=== PATIENT | male | born 1970 | race Caucasian/White ===

== ENCOUNTER 2019-06-08 18:27 | Inpatient (IN) | payer BC ==
[~2019-06-08] VITALS: Ht 188 cm; Wt 294.8 kg
[~2019-06-08 18:27] MED LIST: VANCOMYCIN 1.5 GM in IV NORMAL SALINE 500ML BAG 500 ML IV SCH
--- NOTE | 2019-06-08 18:41 | PHYS DOC ---
Adult General Chief Complaint Chief Complaint: LOWER EXT PAIN HPI HPI Patient is a 49 year old male who was brought here by EMS for evaluation of left lower extremity pain and swelling for the last 2 days. He also complaints of fever and chill. Patient said his son was recently diagnosed with influenza A. He denies any abdominal pain, no chest pain, no trouble breathing. He denies any injury. he has history of chronic lymphedema. All other ROS is negative unless otherwise noted in HPI Review of Systems Review of Systems See above Current Medications Current Medications Current Medications Medications (Trade) Dose Ordered Sig/Dina Start Time Stop Time Status Last Admin Dose Admin Acetaminophen (Tylenol) 1,000 mg 1X ONCE 06/08/19 20:00 06/08/19 20:01 DC 06/08/19 19:56 1,000 MG Cefazolin Sodium/ Dextrose 50 ml @ 100 mls/hr Q8HRS 06/09/19 06:00 UNV Ibuprofen (Motrin) 800 mg 1X ONCE 06/08/19 20:00 06/08/19 20:01 DC 06/08/19 19:56 800 MG Morphine Sulfate (Morphine Sulfate) 4 mg PRN Q6HRS PRN 06/08/19 20:15 06/09/19 20:14 Ondansetron HCl (Zofran) 4 mg PRN Q8HRS PRN 06/08/19 20:15 06/09/19 20:14 Sodium Chloride 1,000 ml @ 1,000 mls/hr 1X ONCE 06/08/19 20:00 06/08/19 20:59 06/08/19 20:02 1,000 MLS/HR Vancomycin HCl (Vanco Per Pharmacy) 1 each PRN DAILY PRN 06/08/19 20:30 UNV Vancomycin HCl 2 gm/Sodium Chloride 500 ml @ 250 mls/hr 1X ONCE 06/08/19 20:00 06/08/19 21:59 Allergies Allergies Allergies Coded Allergies Type Severity Reaction Last Updated Verified No Known Drug Allergies 06/08/19 No Physical Exam Physical Exam See above Constitutional: Well developed, well nourished, no acute distress, non-toxic appearance. MORBIDLY OBESE. HENT: Normocephalic, atraumatic, bilateral external ears normal, oropharynx moist, no oral exudates, nose normal. [] Eyes: PERRLA, EOMI, conjunctiva normal, no discharge. [] Neck: Normal range of motion, no tenderness, supple, no stridor. [] Cardiovascular:Heart rate regular rhythm, no murmur [] Lungs & Thorax: Bilateral breath sounds clear to auscultation [] Abdomen: Bowel sounds normal, soft, no tenderness, no masses, no pulsatile masses. [] Skin: Warm, dry, LEFT LEG IS ERYTHEMA, WARM TO TOUCH, NO OPEN WOUND. Back: No tenderness, no CVA tenderness. [] Extremities: LEFT LEG EDEMA, SWELLING, ERYTHEMA, TENDER TO PALPATION. Neurologic: Alert and oriented X 3, normal motor function, normal sensory function, no focal deficits noted. [] Psychologic: Affect normal, judgement normal, mood normal. [] Current Patient Data Vital Signs Vital Signs Date Time Temp Pulse Resp B/P (MAP) Pulse Ox O2 Delivery O2 Flow Rate FiO2 06/08/19 18:40 103.2 121 16 139/72 (94) 91 Room Air 103.2 Lab Values Laboratory Tests Test 06/08/19 18:41 06/08/19 18:50 Influenza Type A Antigen Negative (NEGATIVE) Influenza Type B Antigen Negative (NEGATIVE) White Blood Count 15.3 x10^3/uL (4.0-11.0) H Red Blood Count 5.10 x10^6/uL (4.30-5.70) Hemoglobin 13.8 g/dL (13.0-17.5) Hematocrit 42.4 % (39.0-53.0) Mean Corpuscular Volume 83 fL (79-100) Mean Corpuscular Hemoglobin 27 pg (25-35) Mean Corpuscular Hemoglobin Concent 33 g/dL (31-37) Red Cell Distribution Width 14.9 % (11.5-14.5) H Platelet Count 188 x10^3/uL (140-400) Neutrophils (%) (Auto) 87 % (31-73) H Lymphocytes (%) (Auto) 5 % (24-48) L Monocytes (%) (Auto) 8 % (0-9) Eosinophils (%) (Auto) 0 % (0-3) Basophils (%) (Auto) 0 % (0-3) Neutrophils # (Auto) 13.2 x10^3/uL (1.8-7.7) H Lymphocytes # (Auto) 0.8 x10^3/uL (1.0-4.8) L Monocytes # (Auto) 1.2 x10^3/uL (0.0-1.1) H Eosinophils # (Auto) 0.0 x10^3/uL (0.0-0.7) Basophils # (Auto) 0.0 x10^3/uL (0.0-0.2) Platelet Estimate Pending Prothrombin Time 13.8 SEC (11.7-14.0) Prothrombin Time INR 1.1 (0.8-1.1) Activated Partial Thromboplast Time 29 SEC (24-38) Sodium Level 129 mmol/L (136-145) L Potassium Level 3.7 mmol/L (3.5-5.1) Chloride Level 94 mmol/L (98-107) L Carbon Dioxide Level 27 mmol/L (21-32) Anion Gap 8 (6-14) Blood Urea Nitrogen 14 mg/dL (8-26) Creatinine 1.2 mg/dL (0.7-1.3) Estimated GFR (Cockcroft-Gault) 64.1 BUN/Creatinine Ratio 12 (6-20) Glucose Level 133 mg/dL (70-99) H Lactic Acid Level 1.6 mmol/L (0.4-2.0) Calcium Level 9.1 mg/dL (8.5-10.1) Total Bilirubin 0.9 mg/dL (0.2-1.0) Aspartate Amino Transferase (AST) 47 U/L (15-37) H Alanine Aminotransferase (ALT) 40 U/L (16-63) Alkaline Phosphatase 73 U/L (46-116) Total Protein 8.1 g/dL (6.4-8.2) Albumin 2.7 g/dL (3.4-5.0) L Albumin/Globulin Ratio 0.5 (1.0-1.7) L Laboratory Tests 06/08/19 18:50 Laboratory Tests 06/08/19 18:50 EKG EKG [] Radiology/Procedures Radiology/Procedures [][facility] [address] [place], [place] [id number] IMAGING REPORT Signed PATIENT: DANIELLE BURGOSCCOUNT: [id number] : 1970 LOCATION: ER AGE: 49 SEX: M EXAM STATUS: REG ER ORD. PHYSICIAN: KYLE ZIMMERMAN DO REASON: left leg swelling and pain for 2 days PROCEDURE: VENOUS LOWER EXTREMITY LEFT STUDY: VENOUS LOWER EXTREMITY LEFT INDICATION: Left leg swelling and pain. TECHNIQUE: Color-flow and pulsed wave duplex ultrasound with compression of venous structures of the left lower extremity. COMPARISON: None. FINDINGS: Duplex ultrasound with compression of the deep venous structures of the left lower extremity from the common femoral vein through the popliteal vein is negative for DVT. The calf veins are not well evaluated due to patient body habitus. IMPRESSION: No deep venous thrombosis from the common femoral vein through the popliteal vein. The calf veins are not assessed due to patient body habitus. Electronically signed by: CHANNING NICK MD (06/08/2019 8:18 PM) [facility] DICTATED and SIGNED BY: CHANNING NICK MD DATE: 06/08/192017 [facility] [address] [place], [place] [id number] IMAGING REPORT Signed PATIENT: DANIELLE BURGOSCCOUNT: [id number] : 1970 LOCATION: ER AGE: 49 SEX: M EXAM STATUS: REG ER ORD. PHYSICIAN: KYLE ZIMMERMAN DO REASON: fever, cough PROCEDURE: PORTABLE CHEST 1V Study: PORTABLE CHEST 1V Indication: Fever and cough. Comparison: 03/12/2006 Findings: Degraded study secondary to patient body habitus. The cardiomediastinal silhouette is prominent in size but similar to the prior. Prominent hilar structures most pronounced at the lower aspect of the right hilum. Generalized increased lung markings. Haziness of the lower lung zones likely in part related to overlying soft tissues. No large pleural effusion is well seen. No large pneumothorax. Impression: 1. Significant study degradation due to patient body habitus. 2. The cardiomediastinal silhouette is prominent in size as are the hilar structures. Increased lung markings as well and a component of pulmonary edema may be present. No superimposed focal opacity to suggest an organizing pneumonia. Electronically signed by: CHANNING NICK MD (06/08/2019 7:29 PM) [facility] DICTATED and SIGNED BY: CHANNING NICK MD DATE: 06/08/191928 Course & Med Decision Making Course & Med Decision Making Pertinent Labs and Imaging studies reviewed. (See chart for details) Patient was FOUND To have cellulitis of left lower extremity, so did not show DVT, patient WILL be admitted to hospital for IV antibiotic. Dragon Disclaimer Dragon Disclaimer This electronic medical record was generated, in whole or in part, using a voice recognition dictation system. Departure Departure Impression: Primary Impression: Left leg cellulitis Disposition: ADMITTED INPATIENT Admitting Physician: STEPHANIE (DR. VADIM ANGELO) Condition: STABLE Referrals: DENISE OLVERA (PCP) KYLE ZIMMERMAN DO Jun 08, 2019 18:41
[2019-06-08] MEDS ORDERED: VANCOMYCIN 1GM IVPB FOR OMNI 250 ML IV ONE (18:45)
[2019-06-08 19:05] LABS: BASO % 0 % (0-3); EOS % 0 % (0-3); HEMATOCRIT 42.4 % (39.0-53.0); HEMOGLOBIN 13.8 g/dL (13.0-17.5); LYMPH # 0.8 x10^3/uL (1.0-4.8); LYMPH % 5 % (24-48); MEAN CORPUSCULAR HEMOGLOBIN 27 pg (25-35); MEAN CORPUSCULAR HGB CONC 33 g/dL (31-37); MEAN CORPUSCULAR VOLUME 83 fL (79-100); MONO # 1.2 x10^3/uL (0.0-1.1); MONO % 8 % (0-9); NEUT # 13.2 x10^3/uL (1.8-7.7); NEUT % 87 % (31-73); PLATELET COUNT 188 x10^3/uL (140-400); RED CELL DISTRIBUTION WIDTH 14.9 % (11.5-14.5); WHITE BLOOD COUNT 15.3 x10^3/uL (4.0-11.0)
[2019-06-08 19:07] LABS: INFLUENZA A PATIENT NEGATIVE (NEGATIVE); INFLUENZA B PATIENT NEGATIVE (NEGATIVE)
[2019-06-08 19:15] LABS: CALCIUM 9.1 mg/dL (8.5-10.1); CREATININE 1.2 mg/dL (0.7-1.3); GFR 64.1; POTASSIUM 3.7 mmol/L (3.5-5.1)
[2019-06-08 19:20] LABS: PROTHROMBIN TIME PATIENT 13.8 SEC (11.7-14.0)
[2019-06-08 19:21] LABS: ALBUMIN 2.7 g/dL (3.4-5.0); ALBUMIN/GLOBULIN RATIO 0.5 (1.0-1.7); TOTAL BILIRUBIN 0.9 mg/dL (0.2-1.0); TOTAL PROTEIN 8.1 g/dL (6.4-8.2)
--- NOTE | 2019-06-08 19:32 | RAD ---
Study: PORTABLE CHEST 1V Indication: Fever and cough. Comparison: 03/12/2006 Findings: Degraded study secondary to patient body habitus. The cardiomediastinal silhouette is prominent in size but similar to the prior. Prominent hilar structures most pronounced at the lower aspect of the right hilum. Generalized increased lung markings. Haziness of the lower lung zones likely in part related to overlying soft tissues. No large pleural effusion is well seen. No large pneumothorax. Impression: 1. Significant study degradation due to patient body habitus. 2. The cardiomediastinal silhouette is prominent in size as are the hilar structures. Increased lung markings as well and a component of pulmonary edema may be present. No superimposed focal opacity to suggest an organizing pneumonia. Electronically signed by: CHANNING NICK MD (06/08/2019 7:29 PM) [facility]
[2019-06-08] MEDS ORDERED: IV NORMAL SALINE 1000ML BAG 1,000 ML IV ONE (20:00)
[2019-06-08] MEDS ORDERED: ACETAMINOPHEN 500 MG TABLET PO ONE (20:00)
[2019-06-08] MEDS ORDERED: IBUPROFEN 400 MG TABLET. PO ONE (20:00)
[2019-06-08] MEDS ORDERED: VANCOMYCIN 2 GM in IV NORMAL SALINE 500ML BAG 500 ML IV ONE (20:00)
[2019-06-08] MEDS ORDERED: ONDANSETRON PF 4 MG/2 ML VIAL. IV PRN (20:15)
[2019-06-08] MEDS ORDERED: MORPHINE SULFATE 4 MG/ML VIAL. IV PRN (20:15)
--- NOTE | 2019-06-08 20:21 | RAD ---
STUDY: VENOUS LOWER EXTREMITY LEFT INDICATION: Left leg swelling and pain. TECHNIQUE: Color-flow and pulsed wave duplex ultrasound with compression of venous structures of the left lower extremity. COMPARISON: None. FINDINGS: Duplex ultrasound with compression of the deep venous structures of the left lower extremity from the common femoral vein through the popliteal vein is negative for DVT. The calf veins are not well evaluated due to patient body habitus. IMPRESSION: No deep venous thrombosis from the common femoral vein through the popliteal vein. The calf veins are not assessed due to patient body habitus. Electronically signed by: CHANNING NICK MD (06/08/2019 8:18 PM) [facility]
[2019-06-08 20:42] LABS: % ATYL 2 % (0-0); % LYMPHS 8 % (24-48)
[2019-06-08 20:43] LABS: % BANDS 39 % (0-9); % MONOS 5 % (0-10); % SEGS 46 % (35-66)
[2019-06-08 20:44] LABS: TOXIC VACUOLATION PRESENT
[2019-06-08] MEDS: VANCOMYCIN PER PHARMACY MC PRN (21:00)
[2019-06-08 21:03] LABS: PLT ESTIMATE ADEQUATE (ADEQUATE)
--- NOTE | 2019-06-08 21:06 | NUR ---
Pharmacy Vancomycin Dosing Note S:Consulted to monitor and dose vancomycin started 06/08/19. O:VADIM BURGOS is a 49 year old M with Cellulitis Height: 6 feet, 2 inches Weight: 294.8 kg [place] Body Weight: 82.20 Adjusted Body Weight: 167.32 Dosing Weight: Actual Other Antibiotics: Cefazolin 2g q8h LABS: Last BUN: 14 Last Creatinine: 1.2 Creatinine Clearance: >100 mL/min Last WBC: 15.3 Last Procalcitonin: Tmax (past 24 hours): 103.2 Microbiology: - I/O: - Drug Levels: Last level: on at Last dose given 06/08/19 at 2043 Vancomycin Dosing: Loading Dose: 2000 mg x1 Dosing Weight: Actual Target Trough: 10-20 A: Based on: weight and renal function P: 1. Begin Vancomycin 1500 mg IV q8h 2. Follow up Trough level on 06/09/19 at 2030 3. Pharmacy will continue to monitor, follow and adjust therapy as needed. Kyung Trammell RPH, 06/08/19 0047
[2019-06-08 23:00] VITALS: BP 112/84
[2019-06-09] MEDS ORDERED: water pill (00:28)
[2019-06-09] MEDS ORDERED: TURM538C PO (00:28)
[2019-06-09 03:00] VITALS: BP 144/88
[2019-06-09] MEDS: VANCOMYCIN 1.5 GM in IV NORMAL SALINE 500ML BAG 500 ML IV SCH ×3 (05:52→21:33)
[2019-06-09 07:00] VITALS: BP 147/82
--- NOTE | 2019-06-09 07:31 | EKG ---
[facility] [address] [place] [address] Test Date: 2019-06-08 Test Time: 19:47:52 Pat Name: VADIM BURGOS Department: Room: Gender: Organ Recovery Coordinator: : 1970 Requested By: KYLE ZIMMERMAN Order Number: [id number] Reading MD: Measurements Intervals [place] Rate: 121 P: 0 MI: 128 QRS: 11 QRSD: 102 T: 17 QT: 356 QTc: 508 Interpretive Statements SINUS TACHYCARDIA OTHERWISE NORMAL ECG No previous ECG available for comparison
[2019-06-09 07:43] LABS: BILIRUBIN,URINE SMALL (NEG); CLARITY,URINE CLEAR; COLOR,URINE AMBER; NITRITE,URINE NEGATIVE (NEG); PH,URINE 5.5; PROTEIN,URINE 100 mg/dL (NEG-TRACE)
[2019-06-09 08:08] LABS: BACTERIA,URINE 0 /HPF (0-FEW); RBC,URINE 0 /HPF (0-2); SQUAMOUS EPITHELIAL CELL,UR FEW /LPF
[2019-06-09 08:09] LABS: AMORPHOUS SEDIMENT,UR PRESENT /HPF; GRANULAR CASTS,URINE OCCASIONAL /HPF; HYALINE CASTS, URINE FEW /HPF
[2019-06-09 08:49] LABS: CALCIUM 8.8 mg/dL (8.5-10.1); CREATININE 1.1 mg/dL (0.7-1.3); GFR 70.9; POTASSIUM 3.4 mmol/L (3.5-5.1)
[2019-06-09 11:00] VITALS: BP 142/72
--- NOTE | 2019-06-09 11:21 | PDOC1 ---
History and Physical Date of Admission Date of Admission DATE: 06/09/19 TIME: :19 Identification/Chief Complaint Chief Complaint 49 year old male who was brought here by EMS for evaluation of left lower extremity pain and swelling for the last 2 days. He also complaints of fever and chill. Patient said his son was recently diagnosed with influenza A. He denies any abdominal pain, no chest pain, no trouble breathing. He denies any injury. he has history of chronic lymphedema. NOTES PAIN, SWELLING Past Medical History Cardiovascular: Hyperlipidemia Family History Family History: High Cholestrol, Hypertension Social History Smoke: No ALCOHOL: none Drugs: None Current Problem List Problem List Problems Medical Problems: (1) Left leg cellulitis Status: Acute Current Medications Current Medications Current Medications Ibuprofen (Motrin) 800 mg 1X ONCE PO Last administered on 06/08/19 19:56; Start 06/08/19 at 20:00; Stop 06/08/19 at 20:01; Status DC Acetaminophen (Tylenol) 1,000 mg 1X ONCE PO Last administered on 06/08/19 19:56; Start 06/08/19 at 20:00; Stop 06/08/19 at 20:01; Status DC Vancomycin HCl 250 ml @ 250 mls/hr 1X ONCE IV ; Start 06/08/19 at 18:45; Stop 06/08/19 at 19:44; Status UNV Cefazolin Sodium/ Dextrose 50 ml @ 100 mls/hr 1X ONCE IV Last administered on 06/08/19at 20:02; Start 06/08/19 at 20:00; Stop 06/08/19 at 20:29; Status DC Sodium Chloride 1,000 ml @ 1,000 mls/hr 1X ONCE IV Last administered on 06/08/19at 20:02; Start 06/08/19 at 20:00; Stop 06/08/19 at 20:59; Status DC Vancomycin HCl 2 gm/Sodium Chloride 500 ml @ 250 mls/hr 1X ONCE IV Last administered on 06/08/19at 20:43; Start 06/08/19 at 20:00; Stop 06/08/19 at 21:59; Status DC Ondansetron HCl (Zofran) 4 mg PRN Q8HRS PRN IV NAUSEA/VOMITING Last adminis tered on 06/09/19at 11:15; Start 06/08/19 at 20:15; Stop 06/09/19 at 20:14 Morphine Sulfate (Morphine Sulfate) 4 mg PRN Q6HRS PRN IV PAIN Last administered on 06/09/19at 11:16; Start 06/08/19 at 20:15; Stop 06/09/19 at 20:14 Cefazolin Sodium/ Dextrose 50 ml @ 100 mls/hr Q8HRS IV Last administered on 06/09/19at 05:12; Start 06/09/19 at 06:00 Vancomycin HCl (Vanco Per Pharmacy) 1 each PRN DAILY PRN MC SEE COMMENTS Last administered on 06/08/19at 21:00; Start 06/08/19 at 20:30 Vancomycin HCl 1.5 gm/Sodium Chloride 500 ml @ 250 mls/hr Q8H IV Last administered on 06/08/19at 05:00; Start 06/08/19 at 05:00; Stop 06/08/19 at 2 1:21; Status DC Vancomycin HCl (Vancomycin Trough Level) 1 each 1X ONCE MC ; Start 06/09/19 at 20:30; Stop 06/09/19 at 20:31 Vancomycin HCl 1.5 gm/Sodium Chloride 500 ml @ 250 mls/hr Q8H IV Last administered on 06/09/19at 05:52; Start 06/09/19 at 05:00 Active Scripts Active Reported [water pill] Turmeric (Turmeric Root Extract) 538 Mg Capsule 538 Mg PO DAILY Allergies Allergies: Coded Allergies: No Known Drug Allergies (Unverified , 06/08/19) ROS General: YES: Fatigue; No: Chills, Night Sweats, Malaise, Appetite, Other PSYCHOLOGICAL ROS: No: Anxiety, Behavioral Disorder, Concentration difficultie, Decreased libido, Depression, Disorientation, Hallucinations, Hostility, Irritablity, Memory difficulties, Mood Swings, Obsessive thoughts, Physical abuse, Sexual abuse, Sleep disturbances, Suicidal ideation, Other Eyes: No Blurry vision, No Decreased vision, No Double vision, No Dry eyes, No Excessive tearing, No Eye Pain, No Itchy Eyes, No Loss of vision, No Photophobia, No Scotomata, No Uses contacts, No Uses glasses, No Other ALLERGY AND IMMUNOLOGY: No: Hives, Insect Bite Sensitivity, Itchy/Watery Eyes, Nasal Congestion, Post Nasal Drip, Seasonal Allergies, Other Hematological and Lymphatic: No: Bleeding Problems, Blood Clots, Blood Transfusions, Brusing, Night Sweats, Pallor, Swollen Lymph Nodes, Other Respiratory: YES: SOB with excertion Gastrointestinal: No Nausea, No Vomiting, No Abdominal Pain, No Diarrhea, No Constipation, No Melena, No Hematochezia, No Other Musculoskeletal: Yes Gait Disturbance, Yes Joint Stiffness Skin: Yes Dry Skin, Yes Skin Lesion Changes Physical Exam Physical Exam Physical Exam Physical Exam See above Constitutional: Well developed, well nourished, no acute distress, non-toxic appearance. MORBIDLY OBESE. HENT: Normocephalic, atraumatic, bilateral external ears normal, oropharynx moist, no oral exudates, nose normal. [] Eyes: PERRLA, EOMI, conjunctiva normal, no discharge. [] Neck: Normal range of motion, no tenderness, supple, no stridor. [] Cardiovascular:Heart rate regular rhythm, no murmur [] Lungs & Thorax: Bilateral breath sounds clear to auscultation [] Abdomen: Bowel sounds normal, soft, no tenderness, no masses, no pulsatile masses. [] Skin: Warm, dry, LEFT LEG IS ERYTHEMA, WARM TO TOUCH, NO OPEN WOUND. Back: No tenderness, no CVA tenderness. [] Extremities: LEFT LEG EDEMA, SWELLING, ERYTHEMA, TENDER TO PALPATION. Neurologic: Alert and oriented X 3, normal motor function, normal sensory function, no focal deficits noted. [] Psychologic: Affect normal, judgement normal, mood normal. [] General: Alert, Oriented X3, Cooperative, No acute distress HEENT: EOMI Breasts: Not examined Abdomen: Soft Rectal Exam: not examined PELVIC: Examination not indicated Extremities: No cyanosis Neuro: Normal speech, Cranial nerves 3-12 NL Psych/Mental Status: Mental status NL, Mood NL Vitals Vitals Vital Signs Date Time Temp Pulse Resp B/P (MAP) Pulse Ox O2 Delivery O2 Flow Rate FiO2 06/09/19 11:16 18 Room Air 06/09/19 07:00 97.5 115 147/82 (103) 92 97.5 Labs Labs Laboratory Tests Test 06/08/19 18:41 06/08/19 18:50 06/09/19 06:30 06/09/19 07:45 Influenza Type A Antigen Negative (NEGATIVE) Influenza Type B Antigen Negative (NEGATIVE) White Blood Count 15.3 x10^3/uL (4.0-11.0) Red Blood Count 5.10 x10^6/uL (4.30-5.70) Hemoglobin 13.8 g/dL (13.0-17.5) Hematocrit 42.4 % (39.0-53.0) Mean Corpuscular Volume 83 fL (79-100) Mean Corpuscular Hemoglobin 27 pg (25-35) Mean Corpuscular Hemoglobin Concent 33 g/dL (31-37) Red Cell Distribution Width 14.9 % (11.5-14.5) Platelet Count 188 x10^3/uL (140-400) Neutrophils (%) (Auto) 87 % (31-73) Lymphocytes (%) (Auto) 5 % (24-48) Monocytes (%) (Auto) 8 % (0-9) Eosinophils (%) (Auto) 0 % (0-3) Basophils (%) (Auto) 0 % (0-3) Neutrophils # (Auto) 13.2 x10^3/uL (1.8-7.7) Lymphocytes # (Auto) 0.8 x10^3/uL (1.0-4.8) Monocytes # (Auto) 1.2 x10^3/uL (0.0-1.1) Eosinophils # (Auto) 0.0 x10^3/uL (0.0-0.7) Basophils # (Auto) 0.0 x10^3/uL (0.0-0.2) Segmented Neutrophils % 46 % (35-66) Band Neutrophils % 39 % (0-9) Lymphocytes % 8 % (24-48) Atypical Lymphocytes % (Manual) 2 % (0-0) Monocytes % 5 % (0-10) Toxic Vacuolation Present Platelet Estimate Adequate (ADEQUATE) Prothrombin Time 13.8 SEC (11.7-14.0) Prothromb Time International Ratio 1.1 (0.8-1.1) Activated Partial Thromboplast Time 29 SEC (24-38) Sodium Level 129 mmol/L (136-145) 133 mmol/L (136-145) Potassium Level 3.7 mmol/L (3.5-5.1) 3.4 mmol/L (3.5-5.1) Chloride Level 94 mmol/L (98-107) 96 mmol/L (98-107) Carbon Dioxide Level 27 mmol/L (21-32) 27 mmol/L (21-32) Anion Gap 8 (6-14) 10 (6-14) Blood Urea Nitrogen 14 mg/dL (8-26) 13 mg/dL (8-26) Creatinine 1.2 mg/dL (0.7-1.3) 1.1 mg/dL (0.7-1.3) Estimated GFR (Cockcroft-Gault) 64.1 70.9 BUN/Creatinine Ratio 12 (6-20) Glucose Level 133 mg/dL (70-99) 131 mg/dL (70-99) Lactic Acid Level 1.6 mmol/L (0.4-2.0) Calcium Level 9.1 mg/dL (8.5-10.1) 8.8 mg/dL (8.5-10.1) Total Bilirubin 0.9 mg/dL (0.2-1.0) Aspartate Amino Transf (AST/SGOT) 47 U/L (15-37) Alanine Aminotransferase (ALT/SGPT) 40 U/L (16-63) Alkaline Phosphatase 73 U/L (46-116) Total Protein 8.1 g/dL (6.4-8.2) Albumin 2.7 g/dL (3.4-5.0) Albumin/Globulin Ratio 0.5 (1.0-1.7) Urine Collection Type Unknown Urine Color Blanca Urine Clarity Clear Urine pH 5.5 Urine Specific [place] 1.025 Urine Protein 100 mg/dL (NEG-TRACE) Urine Glucose (UA) Negative mg/dL (NEG) Urine Ketones (Stick) 15 mg/dL (NEG) Urine Blood Moderate (NEG) Urine Nitrite Negative (NEG) Urine Bilirubin Small (NEG) Urine Urobilinogen Dipstick 1.0 mg/dL (0.2 mg/dL) Urine Leukocyte Esterase Negative (NEG) Urine RBC 0 /HPF (0-2) Urine WBC 1-4 /HPF (0-4) Urine Squamous Epithelial Cells Few /LPF Urine Amorphous Sediment Present /HPF Urine Bacteria 0 /HPF (0-FEW) Urine Hyaline Casts Few /HPF Urine Granular Casts Occasional /HPF Urine Mucus Slight /LPF Laboratory Tests Test 06/08/19 18:41 06/08/19 18:50 06/09/19 06:30 06/09/19 07:45 Influenza Type A Antigen Negative (NEGATIVE) Influenza Type B Antigen Negative (NEGATIVE) White Blood Count 15.3 x10^3/uL (4.0-11.0) Red Blood Count 5.10 x10^6/uL (4.30-5.70) Hemoglobin 13.8 g/dL (13.0-17.5) Hematocrit 42.4 % (39.0-53.0) Mean Corpuscular Volume 83 fL (79-100) Mean Corpuscular Hemoglobin 27 pg (25-35) Mean Corpuscular Hemoglobin Concent 33 g/dL (31-37) Red Cell Distribution Width 14.9 % (11.5-14.5) Platelet Count 188 x10^3/uL (140-400) Neutrophils (%) (Auto) 87 % (31-73) Lymphocytes (%) (Auto) 5 % (24-48) Monocytes (%) (Auto) 8 % (0-9) Eosinophils (%) (Auto) 0 % (0-3) Basophils (%) (Auto) 0 % (0-3) Neutrophils # (Auto) 13.2 x10^3/uL (1.8-7.7) Lymphocytes # (Auto) 0.8 x10^3/uL (1.0-4.8) Monocytes # (Auto) 1.2 x10^3/uL (0.0-1.1) Eosinophils # (Auto) 0.0 x10^3/uL (0.0-0.7) Basophils # (Auto) 0.0 x10^3/uL (0.0-0.2) Segmented Neutrophils % 46 % (35-66) Band Neutrophils % 39 % (0-9) Lymphocytes % 8 % (24-48) Atypical Lymphocytes % (Manual) 2 % (0-0) Monocytes % 5 % (0-10) Toxic Vacuolation Present Platelet Estimate Adequate (ADEQUATE) Prothrombin Time 13.8 SEC (11.7-14.0) Prothromb Time International Ratio 1.1 (0.8-1.1) Activated Partial Thromboplast Time 29 SEC (24-38) Sodium Level 129 mmol/L (136-145) 133 mmol/L (136-145) Potassium Level 3.7 mmol/L (3.5-5.1) 3.4 mmol/L (3.5-5.1) Chloride Level 94 mmol/L (98-107) 96 mmol/L (98-107) Carbon Dioxide Level 27 mmol/L (21-32) 27 mmol/L (21-32) Anion Gap 8 (6-14) 10 (6-14) Blood Urea Nitrogen 14 mg/dL (8-26) 13 mg/dL (8-26) Creatinine 1.2 mg/dL (0.7-1.3) 1.1 mg/dL (0.7-1.3) Estimated GFR (Cockcroft-Gault) 64.1 70.9 BUN/Creatinine Ratio 12 (6-20) Glucose Level 133 mg/dL (70-99) 131 mg/dL (70-99) Lactic Acid Level 1.6 mmol/L (0.4-2.0) Calcium Level 9.1 mg/dL (8.5-10.1) 8.8 mg/dL (8.5-10.1) Total Bilirubin 0.9 mg/dL (0.2-1.0) Aspartate Amino Transf (AST/SGOT) 47 U/L (15-37) Alanine Aminotransferase (ALT/SGPT) 40 U/L (16-63) Alkaline Phosphatase 73 U/L (46-116) Total Protein 8.1 g/dL (6.4-8.2) Albumin 2.7 g/dL (3.4-5.0) Albumin/Globulin Ratio 0.5 (1.0-1.7) Urine Collection Type Unknown Urine Color [place]anca Urine Clarity Clear Urine pH 5.5 Urine Specific [place] 1.025 Urine Protein 100 mg/dL (NEG-TRACE) Urine Glucose (UA) Negative mg/dL (NEG) Urine Ketones (Stick) 15 mg/dL (NEG) Urine Blood Moderate (NEG) Urine Nitrite Negative (NEG) Urine Bilirubin Small (NEG) Urine Urobilinogen Dipstick 1.0 mg/dL (0.2 mg/dL) Urine Leukocyte Esterase Negative (NEG) Urine RBC 0 /HPF (0-2) Urine WBC 1-4 /HPF (0-4) Urine Squamous Epithelial Cells Few /LPF Urine Amorphous Sediment Present /HPF Urine Bacteria 0 /HPF (0-FEW) Urine Hyaline Casts Few /HPF Urine Granular Casts Occasional /HPF Urine Mucus Slight /LPF Images Images Indication: Fever and cough. Comparison: 03/12/2006 Findings: Degraded study secondary to patient body habitus. The cardiomediastinal silhouette is prominent in size but similar to the prior. Prominent hilar structures most pronounced at the lower aspect of the right hilum. Generalized increased lung markings. Haziness of the lower lung zones likely in part related to overlying soft tissues. No large pleural effusion is well seen. No large pneumothorax. Impression: 1. Significant study degradation due to patient body habitus. 2. The cardiomediastinal silhouette is prominent in size as are the hilar structures. Increased lung markings as well and a component of pulmonary edema may be present. No superimposed focal opacity to suggest an organizing pneumonia. Electronically signed by: CHANNING NICK MD (06/08/2019 7:29 PM) [facility] [place] DICTATED and SIGNED BY: CHANNING NICK MD DATE: 06/08/191928 STUDY: VENOUS LOWER EXTREMITY LEFT INDICATION: Left leg swelling and pain. TECHNIQUE: Color-flow and pulsed wave duplex ultrasound with compression of venous structures of the left lower extremity. COMPARISON: None. FINDINGS: Duplex ultrasound with compression of the deep venous structures of the left lower extremity from the common femoral vein through the popliteal vein is negative for DVT. The calf veins are not well evaluated due to patient body habitus. IMPRESSION: No deep venous thrombosis from the common femoral vein through the popliteal vein. The calf veins are not assessed due to patient body habitus. Electronically signed by: CHANNING NICK MD (06/08/2019 8:18 PM) [facility] [place] DICTATED and SIGNED BY: CHANNING NICK MD DATE: 06/08/192017 VTE Prophylaxis Ordered VTE Prophylaxis Devices: Contraindicated VTE Pharmacological Prophylaxi: Yes Assessment/Plan Assessment/Plan Impression: Left leg cellulitis PULM EDEMA EXTREME MORBID OBESITY ADMITTED IV ANTIBIOTICS, VANC ID CONSULT CARDS CONSULT ECHO DVT PROPHYLAXIS, HEPARIN MARIA ELENA MATUTE MD Jun 09, 2019 11:21
[2019-06-09 15:00] VITALS: BP 88/58
[2019-06-09] MEDS ORDERED: POTASSIUM CHLORIDE 20 MEQ TABLET.ER. PO ONE (15:15)
--- NOTE | 2019-06-09 15:40 | PDOC2 ---
CARDIAC CONSULT DATE OF CONSULT Date of Consult DATE: 06/09/19 TIME: 15:11 REASON FOR CONSULT Reason for Consult: CHF, pulmonary edema REFERRING PHYSICIAN Referring Physician: Fullbright SOURCE Source: Chart review, Patient HISTORY OF PRESENT ILLNESS HISTORY OF PRESENT ILLNESS This is a pleasant 49 yo male admitted for complains of left leg pain. Reports that he does have chronic leg swelling and appears to be chronic venous dermatitis. In the last 3 days he has noted that his left calf has been getting more red and swollen. Yesterday it was so painful just trying to put his shoes on that he finally decided to come to ED. He does see a PCP for his chronic leg edema and has been taking diuretic. Upon admission he was noted with fever of 103. Also he has been noted with watery stools since Wednesday but none since yesterday. Denies any SOA or productive cough but he did get exposed to his son who has the flu. He is negative so far. Denies any abdominal pain or bloating. He snores at night per his son and typically tired midday but denies any morning HAs. Denies any chest pain and no orthopnea or PND. He could not tell specifically how much has he gained lately since there is no scale that would fit his size. Denies any past CAD, arrhythmias, VTE. Denies any DM and does not take any medications except for the diuretic. PAST MEDICAL HISTORY Cardiovascular: Other (chronic leg edema) Pulmonary: No pertinent hx CENTRAL NERVOUS SYSTEM: Other (No pertinent history) GI: Other (diarrhea) Heme/Onc: No pertinent hx Hepatobiliary: No pertinent hx Psych: No pertinent hx Musculoskeletal: Osteoarthritis, Other (morbid obesity) Rheumatologic: No pertinent hx Infectious disease: No pertinent hx ENT: No pertinent hx Renal/: No pertinent hx Endocrine: No pertinent hx Dermatology: Other (venous dermatitis) PAST SURGICAL HISTORY Past Surgical History: No pertinent history FAMILY HISTORY Family History: Heart Disease (father) SOCIAL HISTORY Smoke: No ALCOHOL: none Drugs: None Lives: with Family (son) CURRENT MEDICATIONS CURRENT MEDICATIONS Current Medications Medications (Trade) Dose Ordered Sig/Dina Route PRN Reason Start Time Stop Time Status Last Admin Dose Admin Ibuprofen (Motrin) 800 mg 1X ONCE PO 06/08/19 20:00 06/08/19 20:01 DC 06/08/19 19:56 Acetaminophen (Tylenol) 1,000 mg 1X ONCE PO 06/08/19 20:00 06/08/19 20:01 DC 06/08/19 19:56 Cefazolin Sodium/ Dextrose 50 ml @ 100 mls/hr 1X ONCE IV 06/08/19 20:00 06/08/19 20:29 DC 06/08/19 20:02 Sodium Chloride 1,000 ml @ 1,000 mls/hr 1X ONCE IV 06/08/19 20:00 06/08/19 20:59 DC 06/08/19 20:02 Vancomycin HCl 2 gm/Sodium Chloride 500 ml @ 250 mls/hr 1X ONCE IV 06/08/19 20:00 06/08/19 21:59 DC 06/08/19 20:43 Ondansetron HCl (Zofran) 4 mg PRN Q8HRS PRN IV NAUSEA/VOMITING 06/08/19 20:15 06/09/19 20:14 06/09/19 11:15 Morphine Sulfate (Morphine Sulfate) 4 mg PRN Q6HRS PRN IV PAIN 06/08/19 20:15 06/09/19 20:14 06/09/19 11:16 Cefazolin Sodium/ Dextrose 50 ml @ 100 mls/hr Q8HRS IV 06/09/19 06:00 06/09/19 14:18 Vancomycin HCl (Vanco Per Pharmacy) 1 each PRN DAILY PRN MC SEE COMMENTS 06/08/19 20:30 06/08/19 21:00 Vancomycin HCl 1.5 gm/Sodium Chloride 500 ml @ 250 mls/hr Q8H IV 06/09/19 05:00 06/09/19 12:15 ALLERGIES ALLERGIES: Coded Allergies: No Known Drug Allergies (Unverified , 06/08/19) ROS Review of System 14 point ROS evaluated with pertinent positives noted per HPI PHYSICAL EXAM General: Alert, Oriented X3, Cooperative, No acute distress HEENT: Atraumatic, Mucous membr. moist/pink Lungs: Other (diminished, unable to appreciate due to his body habitus) Heart: Regular rate, Other (distant heart sounds) Extremities: No cyanosis, Other (chronic lymphedema with LLE cellulitis) Skin: Other (LE venous dermatitis; blisters to left calf dark erythema from below knee to ankle with pitting edema) Neuro: Normal speech, Sensation intact Psych/Mental Status: Mental status NL, Mood NL MUSCULOSKELETAL: Osteoarthritic changes both hands VITALS/I&O VITALS/I&O: Vital Signs Date Time Temp Pulse Resp B/P (MAP) Pulse Ox O2 Delivery O2 Flow Rate FiO2 06/09/19 11:46 18 Room Air 06/09/19 11:00 100.8 117 142/72 (95) 90 100.8 I & O 06/08/19 06/08/19 06/09/19 15:00 23:00 07:00 Intake Total 1050 ml 700 ml Balance 1050 ml 700 ml LABS Lab: Laboratory Tests Test 06/08/19 18:41 06/08/19 18:50 06/09/19 06:30 06/09/19 07:45 Influenza Type A Antigen Negative (NEGATIVE) Influenza Type B Antigen Negative (NEGATIVE) White Blood Count 15.3 x10^3/uL (4.0-11.0) H Red Blood Count 5.10 x10^6/uL (4.30-5.70) Hemoglobin 13.8 g/dL (13.0-17.5) Hematocrit 42.4 % (39.0-53.0) Mean Corpuscular Volume 83 fL (79-100) Mean Corpuscular Hemoglobin 27 pg (25-35) Mean Corpuscular Hemoglobin Concent 33 g/dL (31-37) Red Cell Distribution Width 14.9 % (11.5-14.5) H Platelet Count 188 x10^3/uL (140-400) Neutrophils (%) (Auto) 87 % (31-73) H Lymphocytes (%) (Auto) 5 % (24-48) L Monocytes (%) (Auto) 8 % (0-9) Eosinophils (%) (Auto) 0 % (0-3) Basophils (%) (Auto) 0 % (0-3) Neutrophils # (Auto) 13.2 x10^3/uL (1.8-7.7) H Lymphocytes # (Auto) 0.8 x10^3/uL (1.0-4.8) L Monocytes # (Auto) 1.2 x10^3/uL (0.0-1.1) H Eosinophils # (Auto) 0.0 x10^3/uL (0.0-0.7) Basophils # (Auto) 0.0 x10^3/uL (0.0-0.2) Segmented Neutrophils % 46 % (35-66) Band Neutrophils % 39 % (0-9) H Lymphocytes % 8 % (24-48) L Atypical Lymphocytes % (Manual) 2 % (0-0) H Monocytes % 5 % (0-10) Toxic Vacuolation Present Platelet Estimate Adequate (ADEQUATE) Prothrombin Time 13.8 SEC (11.7-14.0) Prothrombin Time INR 1.1 (0.8-1.1) Activated Partial Thromboplast Time 29 SEC (24-38) Sodium Level 129 mmol/L (136-145) L 133 mmol/L (136-145) L Potassium Level 3.7 mmol/L (3.5-5.1) 3.4 mmol/L (3.5-5.1) L Chloride Level 94 mmol/L (98-107) L 96 mmol/L (98-107) L Carbon Dioxide Level 27 mmol/L (21-32) 27 mmol/L (21-32) Anion Gap 8 (6-14) 10 (6-14) Blood Urea Nitrogen 14 mg/dL (8-26) 13 mg/dL (8-26) Creatinine 1.2 mg/dL (0.7-1.3) 1.1 mg/dL (0.7-1.3) Estimated GFR (Cockcroft-Gault) 64.1 70.9 BUN/Creatinine Ratio 12 (6-20) Glucose Level 133 mg/dL (70-99) H 131 mg/dL (70-99) H Lactic Acid Level 1.6 mmol/L (0.4-2.0) Calcium Level 9.1 mg/dL (8.5-10.1) 8.8 mg/dL (8.5-10.1) Total Bilirubin 0.9 mg/dL (0.2-1.0) Aspartate Amino Transferase (AST) 47 U/L (15-37) H Alanine Aminotransferase (ALT) 40 U/L (16-63) Alkaline Phosphatase 73 U/L (46-116) Total Protein 8.1 g/dL (6.4-8.2) Albumin 2.7 g/dL (3.4-5.0) L Albumin/Globulin Ratio 0.5 (1.0-1.7) L Urine Collection Type Unknown Urine Color Blanca Urine Clarity Clear Urine pH 5.5 Urine Specific Haworth 1.025 Urine Protein 100 mg/dL (NEG-TRACE) Urine Glucose (UA) Negative mg/dL (NEG) Urine Ketones (Stick) 15 mg/dL (NEG) Urine Blood Moderate (NEG) Urine Nitrite Negative (NEG) Urine Bilirubin Small (NEG) Urine Urobilinogen Dipstick 1.0 mg/dL (0.2 mg/dL) Urine Leukocyte Esterase Negative (NEG) Urine RBC 0 /HPF (0-2) Urine WBC 1-4 /HPF (0-4) Urine Squamous Epithelial Cells Few /LPF Urine Amorphous Sediment Present /HPF Urine Bacteria 0 /HPF (0-FEW) Urine Hyaline Casts Few /HPF Urine Granular Casts Occasional /HPF Urine Mucus Slight /LPF OC-Msh-F-Type Natriuretic Peptide 253 pg/mL (0-124) H Thyroid Stimulating Hormone (TSH) 1.033 uIU/mL (0.358-3.74) Laboratory Tests 06/08/19 18:50 Laboratory Tests 06/08/19 18:50 06/09/19 07:45 ASSESSMENT/PLAN ASSESSMENT/PLAN 1. Fever/LLE cellulitis 2. Recent diarrhea: likely contributing to hyponatremia, Na better 3. Chronic venous insufficiency/venous dermatitis 4. Chronic diastolic CHF: clinically compensated 6. Severe morbid obesity: BMI 83. Primary contributor to above issues Due for first bariatric appt on 07/06/2019 6. Reactive sinus tach: per EKG 7. Dysmetabolic syndrome vs new DM2 8. Suspect JASON 9. Recent flu exposure: test negative so far Recommendations 1. Limited imaging options due to his large size. TTE would be likely be limited due to his body habitus and pending 2. Lasix primarily for his leg edema. K replacement. BMP in AM. 3. Nocturnal desat study 4. Lipids and A1C. BC pending. Antibiotic per [employer] MANAGER Jun 09, 2019 15:40
[2019-06-09] MEDS ORDERED: PERFLUTREN PROTEIN-A MICROSPHR 0.22 MG/ML 3 ML VIAL. IV ONE ×2 (15:45→15:47)
[2019-06-09 15:49] LABS: CHOLESTEROL/HDL RATIO 13.3; MAGNESIUM 2.3 mg/dL (1.8-2.4)
[2019-06-09] MEDS ORDERED: POTASSIUM BICARB 20 MEQ EFFERVESCENT TABLET. PO ONE (16:00)
[2019-06-09] MEDS: VANCOMYCIN PER PHARMACY MC PRN ×2 (16:09→21:02)
--- NOTE | 2019-06-09 16:49 | CARD ---
MR#: [id number] Date of Study: 06/09/2019 Ordering Physician: MARIA ELENA MATUTE, Referring Physician: MARIA ELENA MATUTE, Tech: Rosalia Alvarado APPROVED REPORT EXAM: Two-dimensional and M-mode echocardiogram with Doppler and color Doppler. Other Information Quality : FairHR: 120bpm Technically limited study due to body habitus. INDICATION Congestive Heart Failure Echo Enhancing Agent Indication: Endocardial border delineation Agent/Amount Used: Optison 10mL 2D DIMENSIONS Left Atrium(2D)5.5 (1.6-4.0cm)IVSd1.8 (0.7-1.1cm) Aortic Root(2D)2.9 (2.0-3.7cm)LVDd5.8 (3.9-5.9cm) LVOT Diameter2.2 (1.8-2.4cm)PWd1.4 (0.7-1.1cm) LVDs3.6 (2.5-4.0cm)FS (%) 37.9 % SV113.3 ml Aortic Valve AoV Peak Tony.223.1cm/sAoV VTI36.8cm AO Peak GR.19.9mmHgLVOT VTI 19.83cm AO Mean GR.14mmHg Mitral Valve MV E Wshkexbt735.0cm/sMV E Peak Gr.6mmHg MV DECEL [id number] A Jlhuclhw85.1cm/s MV E Mean Gr.3mmHgE/A Ratio1.3 TDI Lateral E' P. V9.40cm/sMedial E' P. V9.78cm/s E/Lateral E'11.5E/Medial E'11.0 Tricuspid Valve TR P. Vxyeztzb468fh/sRAP QIHCPPVV4lsDe TR Peak Gr.72vcRkDPBO41gjQf Pulmonary Vein S1 Ubvqyifr67.3cm/sS2 Snnoqhsg22.15cm/s D2 Vuaposjb77.1cm/s LEFT VENTRICLE The Left Ventricle is borderline dilated. There is mild to moderate concentric left ventricular hyper trophy. The left ventricular systolic function is normal and the ejection fraction is within normal r elissa. The Ejection Fraction is 55-60%. There is normal LV segmental wall motion. Transmitral Doppler flow pattern is Grade II-pseudonormal filling dynamics. RIGHT VENTRICLE The right ventricle is normal size. There is normal right ventricular wall thickness. The right ventr icular systolic function is normal. ATRIA The left atrium size is normal. The right atrium size is normal. The interatrial septum is intact wit h no evidence for an atrial septal defect or patent foramen ovale as noted on 2-D or Doppler imaging. AORTIC VALVE The aortic valve is thickened but opens well. Doppler and Color Flow revealed no significant aortic r egurgitation. There is no significant aortic valvular stenosis. MITRAL VALVE The mitral valve is normal in structure and function. There is no evidence of mitral valve prolapse. There is no mitral valve stenosis. Doppler and Color-flow revealed trace mitral regurgitation. TRICUSPID VALVE The tricuspid valve is normal in structure and function. Doppler and Color Flow revealed trace tricus pid regurgitation with an estimated PAP of 29 mmHg. There is no tricuspid valve stenosis. PULMONIC VALVE The pulmonic valve is not well visualized. Doppler and Color Flow revealed trace pulmonic valvular re gurgitation. GREAT VESSELS The aortic root is normal in size. The IVC was not visualized. PERICARDIAL EFFUSION There is no evidence of significant pericardial effusion. Critical Notification Critical Value: No <Conclusion> The Left Ventricle is borderline dilated. The left ventricular systolic function is normal and the ejection fraction is within normal range. The Ejection Fraction is 55-60%. There is mild to moderate concentric left ventricular hypertrophy. Doppler and Color Flow revealed no significant aortic regurgitation. There is no significant aortic valvular stenosis. Doppler and Color-flow revealed trace mitral regurgitation. Doppler and Color Flow revealed trace tricuspid regurgitation with an estimated PAP of 29 mmHg. Signed by : Carlo Valencia MD Electronically Approved : 06/09/2019 16:49:22
[2019-06-09 19:00] VITALS: BP 151/84
[2019-06-09 20:57] LABS: VANC TR 11.7 mcg/mL (10.0-20.0)
--- NOTE | 2019-06-09 21:03 | NUR ---
Pharmacy Vancomycin Dosing Note S: Consulted to monitor and dose vancomycin started 06/08/19. O: VADIM BURGOS is a 49 year old M with Cellulitis Other Antibiotics: Cefazolin 2g q8h LABS: Last BUN: 14 Last Creatinine: 1.1 Creatinine Clearance: >100 mL/min Last WBC: 15.3 Last Procalcitonin: Tmax (past 24 hours): 100.8 Microbiology: - I/O: 1750/- Drug Levels: Last Trough level: 11.7 on 06/09/19 at 2020 Last dose given 06/09/19 at 1215 Vancomycin Dosing: Dosing Weight: Actual Target Trough: 10-20 A: Based on: trough P: 1. Continue Vancomycin 1500 mg IV q8h 2. Follow up Trough level to be ordered in 5-7 days if needed 3. Pharmacy will continue to monitor, follow and adjust therapy as needed. Kyung Trammell RPH, 06/09/19 [id number]
[2019-06-09] MEDS: LACTOBACILLUS RHAMNOSUS GG 1 CAPSULE. PO SCH (21:32)
[2019-06-09] MEDS: HEPARIN for SUB-Q USE 5,000 UNIT/ML VIAL. SQ SCH (21:44)
[2019-06-09 23:00] VITALS: BP 117/69
[2019-06-09] MEDS ORDERED: SIMETHICONE 80 MG TAB.CHEW PO PRN (23:45)
--- NOTE | 2019-06-10 02:03 | NUR ---
Recieved in shift report that pt has had an fluid intake of at least 2500mL and an output of about 500mL. Did a post void bladder scan in multiple locations under the panis and recieved 0 mL each time. Will continue to monitor.
[2019-06-10 03:00] VITALS: BP 142/76
[2019-06-10] MEDS: VANCOMYCIN 1.5 GM in IV NORMAL SALINE 500ML BAG 500 ML IV SCH (04:15)
[2019-06-10] MEDS: HEPARIN for SUB-Q USE 5,000 UNIT/ML VIAL. SQ SCH ×3 (06:41→22:06)
[2019-06-10 07:26] LABS: BASO % 0 % (0-3); EOS % 0 % (0-3); HEMATOCRIT 39.2 % (39.0-53.0); HEMOGLOBIN 12.7 g/dL (13.0-17.5); LYMPH # 1.3 x10^3/uL (1.0-4.8); LYMPH % 6 % (24-48); MEAN CORPUSCULAR HEMOGLOBIN 27 pg (25-35); MEAN CORPUSCULAR HGB CONC 32 g/dL (31-37); MEAN CORPUSCULAR VOLUME 85 fL (79-100); MONO # 1.5 x10^3/uL (0.0-1.1); MONO % 7 % (0-9); NEUT # 18.7 x10^3/uL (1.8-7.7); NEUT % 87 % (31-73); PLATELET COUNT 192 x10^3/uL (140-400); RED BLOOD COUNT 4.64 x10^6/uL (4.30-5.70); RED CELL DISTRIBUTION WIDTH 15.3 % (11.5-14.5); WHITE BLOOD COUNT 21.6 x10^3/uL (4.0-11.0)
[2019-06-10 07:39] LABS: ALBUMIN 2.2 g/dL (3.4-5.0); ALBUMIN/GLOBULIN RATIO 0.4 (1.0-1.7); CALCIUM 8.7 mg/dL (8.5-10.1); CREATININE 1.2 mg/dL (0.7-1.3); GFR 64.1; POTASSIUM 3.3 mmol/L (3.5-5.1); TOTAL BILIRUBIN 0.9 mg/dL (0.2-1.0); TOTAL PROTEIN 7.4 g/dL (6.4-8.2)
[2019-06-10 07:59] VITALS: BP 112/63
[2019-06-10] MEDS ORDERED: POTASSIUM CHLORIDE 10 MEQ TABLET.ER. PO SCH (08:00)
[2019-06-10] MEDS ORDERED: POTASSIUM BICARB 20 MEQ EFFERVESCENT TABLET. PO ONE (09:00)
--- NOTE | 2019-06-10 09:57 | PDOC ---
PROGRESS NOTES History of Present Illness History of Present Illness VTE Prophylaxis Ordered VTE Prophylaxis Devices: Contraindicated VTE Pharmacological Prophylaxi: Yes Assessment/Plan Assessment/Plan Impression: Left leg cellulitis PULM EDEMA EXTREME MORBID OBESITY on echo, 06/09 Ejection Fraction is 55-60%. mild to moderate concentric left ventricular hypertrophy. severe protein-caloric malnutrition hypokalemia ADMITTED IV ANTIBIOTICS, VANC d/c ID CONSULT CARDS CONSULT ECHO DVT PROPHYLAXIS, HEPARIN Zosyn, add Zyvox for toxin binding and micafungin replete k 38 min pt exam, chart review, > 50% of time spent with exam, chart review, pt care coordination Vitals Vitals Vital Signs Date Time Temp Pulse Resp B/P (MAP) Pulse Ox O2 Delivery O2 Flow Rate FiO2 06/10/19 07:59 99.6 102 20 112/63 (79) 95 Room Air 99.6 Physical Exam General: Alert, Oriented X3, Cooperative, No acute distress Heart: Regular rate, Other (distant heart sounds) Lungs: Clear Abdomen: Normal bowel sounds, Soft, No tenderness Extremities: No cyanosis, Other (chronic lymphedema with LLE cellulitis) Skin: Other (LE venous dermatitis; blisters to left calf dark erythema from be low knee to ankle with pitting edema) Labs LABS Study: PORTABLE CHEST 1V Indication: Fever and cough. Comparison: 03/12/2006 Findings: Degraded study secondary to patient body habitus. The cardiomediastinal silhouette is prominent in size but similar to the prior. Prominent hilar structures most pronounced at the lower aspect of the right hilum. Generalized increased lung markings. Haziness of the lower lung zones likely in part related to overlying soft tissues. No large pleural effusion is well seen. No large pneumothorax. Impression: 1. Significant study degradation due to patient body habitus. 2. The cardiomediastinal silhouette is prominent in size as are the hilar structures. Increased lung markings as well and a component of pulmonary edema may be present. No superimposed focal opacity to suggest an organizing pneumonia. Electronically signed by: CHANNING NICK MD (06/08/2019 7:29 PM) [facility] STUDY: VENOUS LOWER EXTREMITY LEFT INDICATION: Left leg swelling and pain. TECHNIQUE: Color-flow and pulsed wave duplex ultrasound with compression of venous structures of the left lower extremity. COMPARISON: None. FINDINGS: Duplex ultrasound with compression of the deep venous structures of the left lower extremity from the common femoral vein through the popliteal vein is negative for DVT. The calf veins are not well evaluated due to patient body habitus. IMPRESSION: No deep venous thrombosis from the common femoral vein through the popliteal vein. The calf veins are not assessed due to patient body habitus. Electronically signed by: CHANNING NICK MD (06/08/2019 8:18 PM) [facility] DICTATED and SIGNED BY: CHANNING NICK MD DATE: 06/08/192017 SPEC #: [id number] DEVANG: 06/08/19 STATUS: RES REQ #: [id number] RECD: 06/08/19 [facility] DR: KYLE ZIMMERMAN DO SOURCE: BLOOD ENTR: 06/08/[address] [facility] [address]: DENISE OLVERA [facility]: ORDERED: BCULT Procedure Result BLOOD CULTURE Preliminary NO GROWTH AFTER 1 DAY INDICATION Congestive Heart Failure Echo Enhancing Agent Indication: Endocardial border delineation Agent/Amount Used: Optison 10mL 2D DIMENSIONS Left Atrium(2D) 5.5 (1.6-4.0cm) IVSd 1.8 (0.7-1.1cm) Aortic Root(2D) 2.9 (2.0-3.7cm) LVDd 5.8 (3.9-5.9cm) LVOT Diameter 2.2 (1.8-2.4cm) PWd 1.4 (0.7-1.1cm) LVDs 3.6 (2.5-4.0cm) FS (%) 37.9 % SV 113.3 ml Aortic Valve AoV Peak Tony. 223.1cm/s AoV VTI 36.8cm AO Peak GR. 19.9mmHg LVOT VTI 19.83cm AO Mean GR. 14mmHg Mitral Valve MV E Velocity 108.0cm/s MV E Peak Gr. 6mmHg MV DECEL TIME 214ms MV A Velocity 86.1cm/s MV E Mean Gr. 3mmHg E/A Ratio 1.3 TDI Lateral E' P. V 9.40cm/s Medial E' P. V 9.78cm/s E/Lateral E' 11.5 E/Medial E' 11.0 Tricuspid Valve TR P. Velocity 254cm/s RAP ESTIMATE 3mmHg TR Peak Gr. 26mmHg RVSP 29mmHg Pulmonary Vein S1 Velocity 40.3cm/s S2 Velocity 22.15cm/s D2 Velocity 22.1cm/s LEFT VENTRICLE The Left Ventricle is borderline dilated. There is mild to moderate concentric left ventricular hypertrophy. The left ventricular systolic function is normal and the ejection fraction is within normal range. The Ejection Fraction is 55- 60%. There is normal LV segmental wall motion. Transmitral Doppler flow pattern is Grade II-pseudonormal filling dynamics. RIGHT VENTRICLE The right ventricle is normal size. There is normal right ventricular wall thickness. The right ventricular systolic function is normal. ATRIA The left atrium size is normal. The right atrium size is normal. The interatrial septum is intact with no evidence for an atrial septal defect or patent foramen ovale as noted on 2-D or Doppler imaging. AORTIC VALVE The aortic valve is thickened but opens well. Doppler and Color Flow revealed no significant aortic regurgitation. There is no significant aortic valvular stenosis. MITRAL VALVE The mitral valve is normal in structure and function. There is no evidence of mitral valve prolapse. There is no mitral valve stenosis. Doppler and Color-flow revealed trace mitral regurgitation. TRICUSPID VALVE The tricuspid valve is normal in structure and function. Doppler and Color Flow revealed trace tricuspid regurgitation with an estimated PAP of 29 mmHg. There is no tricuspid valve stenosis. PULMONIC VALVE The pulmonic valve is not well visualized. Doppler and Color Flow revealed trace pulmonic valvular regurgitation. GREAT VESSELS The aortic root is normal in size. The IVC was not visualized. PERICARDIAL EFFUSION There is no evidence of significant pericardial effusion. Critical Notification Critical Value: No <Conclusion> The Left Ventricle is borderline dilated. The left ventricular systolic function is normal and the ejection fraction is within normal range. The Ejection Fraction is 55-60%. There is mild to moderate concentric left ventricular hypertrophy. Doppler and Color Flow revealed no significant aortic regurgitation. There is no significant aortic valvular stenosis. Doppler and Color-flow revealed trace mitral regurgitation. Doppler and Color Flow revealed trace tricuspid regurgitation with an estimated PAP of 29 mmHg. Signed by : Ge Valencia MD Electronically Approved : 06/09/2019 16:49:22 DICTATED and SIGNED BY: GE VALENCIA MD Laboratory Tests Test 06/09/19 20:20 06/10/19 07:05 06/10/19 07:10 Vancomycin Level Trough 11.7 mcg/mL (10.0-20.0) Vancomycin Last Dose Date 06/09/19 Vancomycin Last Dose Time 1300 Sodium Level 130 mmol/L (136-145) Potassium Level 3.3 mmol/L (3.5-5.1) Chloride Level 96 mmol/L (98-107) Carbon Dioxide Level 27 mmol/L (21-32) Anion Gap 7 (6-14) Blood Urea Nitrogen 13 mg/dL (8-26) Creatinine 1.2 mg/dL (0.7-1.3) Estimated GFR (Cockcroft-Gault) 64.1 BUN/Creatinine Ratio 11 (6-20) Glucose Level 155 mg/dL (70-99) Calcium Level 8.7 mg/dL (8.5-10.1) Total Bilirubin 0.9 mg/dL (0.2-1.0) Aspartate Amino Transf (AST/SGOT) 117 U/L (15-37) Alanine Aminotransferase (ALT/SGPT) 111 U/L (16-63) Alkaline Phosphatase 92 U/L (46-116) Total Protein 7.4 g/dL (6.4-8.2) Albumin 2.2 g/dL (3.4-5.0) Albumin/Globulin Ratio 0.4 (1.0-1.7) White Blood Count 21.6 x10^3/uL (4.0-11.0) Red Blood Count 4.64 x10^6/uL (4.30-5.70) Hemoglobin 12.7 g/dL (13.0-17.5) Hematocrit 39.2 % (39.0-53.0) Mean Corpuscular Volume 85 fL (79-100) Mean Corpuscular Hemoglobin 27 pg (25-35) Mean Corpuscular Hemoglobin Concent 32 g/dL (31-37) Red Cell Distribution Width 15.3 % (11.5-14.5) Platelet Count 192 x10^3/uL (140-400) Neutrophils (%) (Auto) 87 % (31-73) Lymphocytes (%) (Auto) 6 % (24-48) Monocytes (%) (Auto) 7 % (0-9) Eosinophils (%) (Auto) 0 % (0-3) Basophils (%) (Auto) 0 % (0-3) Neutrophils # (Auto) 18.7 x10^3/uL (1.8-7.7) Lymphocytes # (Auto) 1.3 x10^3/uL (1.0-4.8) Monocytes # (Auto) 1.5 x10^3/uL (0.0-1.1) Eosinophils # (Auto) 0.0 x10^3/uL (0.0-0.7) Basophils # (Auto) 0.0 x10^3/uL (0.0-0.2) Assessment and Plan Assessmemt and Plan Problems Medical Problems: (1) Left leg cellulitis Status: Acute Comment Review of Relevant I have reviewed the following items beny (where applicable) has been applied. Labs Laboratory Tests Test 06/08/19 18:41 06/08/19 18:50 06/09/19 06:30 06/09/19 07:45 Influenza Type A Antigen Negative (NEGATIVE) Influenza Type B Antigen Negative (NEGATIVE) White Blood Count 15.3 x10^3/uL (4.0-11.0) Red Blood Count 5.10 x10^6/uL (4.30-5.70) Hemoglobin 13.8 g/dL (13.0-17.5) Hematocrit 42.4 % (39.0-53.0) Mean Corpuscular Volume 83 fL (79-100) Mean Corpuscular Hemoglobin 27 pg (25-35) Mean Corpuscular Hemoglobin Concent 33 g/dL (31-37) Red Cell Distribution Width 14.9 % (11.5-14.5) Platelet Count 188 x10^3/uL (140-400) Neutrophils (%) (Auto) 87 % (31-73) Lymphocytes (%) (Auto) 5 % (24-48) Monocytes (%) (Auto) 8 % (0-9) Eosinophils (%) (Auto) 0 % (0-3) Basophils (%) (Auto) 0 % (0-3) Neutrophils # (Auto) 13.2 x10^3/uL (1.8-7.7) Lymphocytes # (Auto) 0.8 x10^3/uL (1.0-4.8) Monocytes # (Auto) 1.2 x10^3/uL (0.0-1.1) Eosinophils # (Auto) 0.0 x10^3/uL (0.0-0.7) Basophils # (Auto) 0.0 x10^3/uL (0.0-0.2) Segmented Neutrophils % 46 % (35-66) Band Neutrophils % 39 % (0-9) Lymphocytes % 8 % (24-48) Atypical Lymphocytes % (Manual) 2 % (0-0) Monocytes % 5 % (0-10) Toxic Vacuolation Present Platelet Estimate Adequate (ADEQUATE) Prothrombin Time 13.8 SEC (11.7-14.0) Prothromb Time International Ratio 1.1 (0.8-1.1) Activated Partial Thromboplast Time 29 SEC (24-38) Sodium Level 129 mmol/L (136-145) 133 mmol/L (136-145) Potassium Level 3.7 mmol/L (3.5-5.1) 3.4 mmol/L (3.5-5.1) Chloride Level 94 mmol/L (98-107) 96 mmol/L (98-107) Carbon Dioxide Level 27 mmol/L (21-32) 27 mmol/L (21-32) Anion Gap 8 (6-14) 10 (6-14) Blood Urea Nitrogen 14 mg/dL (8-26) 13 mg/dL (8-26) Creatinine 1.2 mg/dL (0.7-1.3) 1.1 mg/dL (0.7-1.3) Estimated GFR (Cockcroft-Gault) 64.1 70.9 BUN/Creatinine Ratio 12 (6-20) Glucose Level 133 mg/dL (70-99) 131 mg/dL (70-99) Lactic Acid Level 1.6 mmol/L (0.4-2.0) Calcium Level 9.1 mg/dL (8.5-10.1) 8.8 mg/dL (8.5-10.1) Total Bilirubin 0.9 mg/dL (0.2-1.0) Aspartate Amino Transf (AST/SGOT) 47 U/L (15-37) Alanine Aminotransferase (ALT/SGPT) 40 U/L (16-63) Alkaline Phosphatase 73 U/L (46-116) Total Protein 8.1 g/dL (6.4-8.2) Albumin 2.7 g/dL (3.4-5.0) Albumin/Globulin Ratio 0.5 (1.0-1.7) Urine Collection Type Unknown Urine Color Blanca Urine Clarity Clear Urine pH 5.5 Urine Specific [place] 1.025 Urine Protein 100 mg/dL (NEG-TRACE) Urine Glucose (UA) Negative mg/dL (NEG) Urine Ketones (Stick) 15 mg/dL (NEG) Urine Blood Moderate (NEG) Urine Nitrite Negative (NEG) Urine Bilirubin Small (NEG) Urine Urobilinogen Dipstick 1.0 mg/dL (0.2 mg/dL) Urine Leukocyte Esterase Negative (NEG) Urine RBC 0 /HPF (0-2) Urine WBC 1-4 /HPF (0-4) Urine Squamous Epithelial Cells Few /LPF Urine Amorphous Sediment Present /HPF Urine Bacteria 0 /HPF (0-FEW) Urine Hyaline Casts Few /HPF Urine Granular Casts Occasional /HPF Urine Mucus Slight /LPF Hemoglobin A1c 6.0 % (4.8-5.6) Magnesium Level 2.3 mg/dL (1.8-2.4) FW-Osc-X-Type Natriuretic Peptide 253 pg/mL (0-124) Triglycerides Level 205 mg/dL (0-150) Cholesterol Level 106 mg/dL (0-200) LDL Cholesterol, Calculated 57 mg/dL (0-100) VLDL Cholesterol, Calculated 41 mg/dL (0-40) Non-HDL Cholesterol Calculated 98 mg/dL (0-129) HDL Cholesterol 8 mg/dL (40-60) Cholesterol/HDL Ratio 13.3 Thyroid Stimulating Hormone (TSH) 1.033 uIU/mL (0.358-3.74) Test 06/09/19 20:20 06/10/19 07:05 06/10/19 07:10 Vancomycin Level Trough 11.7 mcg/mL (10.0-20.0) Vancomycin Last Dose Date 06/09/19 Vancomycin Last Dose Time 1300 Sodium Level 130 mmol/L (136-145) Potassium Level 3.3 mmol/L (3.5-5.1) Chloride Level 96 mmol/L (98-107) Carbon Dioxide Level 27 mmol/L (21-32) Anion Gap 7 (6-14) Blood Urea Nitrogen 13 mg/dL (8-26) Creatinine 1.2 mg/dL (0.7-1.3) Estimated GFR (Cockcroft-Gault) 64.1 BUN/Creatinine Ratio 11 (6-20) Glucose Level 155 mg/dL (70-99) Calcium Level 8.7 mg/dL (8.5-10.1) Total Bilirubin 0.9 mg/dL (0.2-1.0) Aspartate Amino Transf (AST/SGOT) 117 U/L (15-37) Alanine Aminotransferase (ALT/SGPT) 111 U/L (16-63) Alkaline Phosphatase 92 U/L (46-116) Total Protein 7.4 g/dL (6.4-8.2) Albumin 2.2 g/dL (3.4-5.0) Albumin/Globulin Ratio 0.4 (1.0-1.7) White Blood Count 21.6 x10^3/uL (4.0-11.0) Red Blood Count 4.64 x10^6/uL (4.30-5.70) Hemoglobin 12.7 g/dL (13.0-17.5) Hematocrit 39.2 % (39.0-53.0) Mean Corpuscular Volume 85 fL (79-100) Mean Corpuscular Hemoglobin 27 pg (25-35) Mean Corpuscular Hemoglobin Concent 32 g/dL (31-37) Red Cell Distribution Width 15.3 % (11.5-14.5) Platelet Count 192 x10^3/uL (140-400) Neutrophils (%) (Auto) 87 % (31-73) Lymphocytes (%) (Auto) 6 % (24-48) Monocytes (%) (Auto) 7 % (0-9) Eosinophils (%) (Auto) 0 % (0-3) Basophils (%) (Auto) 0 % (0-3) Neutrophils # (Auto) 18.7 x10^3/uL (1.8-7.7) Lymphocytes # (Auto) 1.3 x10^3/uL (1.0-4.8) Monocytes # (Auto) 1.5 x10^3/uL (0.0-1.1) Eosinophils # (Auto) 0.0 x10^3/uL (0.0-0.7) Basophils # (Auto) 0.0 x10^3/uL (0.0-0.2) Laboratory Tests Test 06/09/19 20:20 06/10/19 07:05 06/10/19 07:10 Vancomycin Level Trough 11.7 mcg/mL (10.0-20.0) Vancomycin Last Dose Date 06/09/19 Vancomycin Last Dose Time 1300 Sodium Level 130 mmol/L (136-145) Potassium Level 3.3 mmol/L (3.5-5.1) Chloride Level 96 mmol/L (98-107) Carbon Dioxide Level 27 mmol/L (21-32) Anion Gap 7 (6-14) Blood Urea Nitrogen 13 mg/dL (8-26) Creatinine 1.2 mg/dL (0.7-1.3) Estimated GFR (Cockcroft-Gault) 64.1 BUN/Creatinine Ratio 11 (6-20) Glucose Level 155 mg/dL (70-99) Calcium Level 8.7 mg/dL (8.5-10.1) Total Bilirubin 0.9 mg/dL (0.2-1.0) Aspartate Amino Transf (AST/SGOT) 117 U/L (15-37) Alanine Aminotransferase (ALT/SGPT) 111 U/L (16-63) Alkaline Phosphatase 92 U/L (46-116) Total Protein 7.4 g/dL (6.4-8.2) Albumin 2.2 g/dL (3.4-5.0) Albumin/Globulin Ratio 0.4 (1.0-1.7) White Blood Count 21.6 x10^3/uL (4.0-11.0) Red Blood Count 4.64 x10^6/uL (4.30-5.70) Hemoglobin 12.7 g/dL (13.0-17.5) Hematocrit 39.2 % (39.0-53.0) Mean Corpuscular Volume 85 fL (79-100) Mean Corpuscular Hemoglobin 27 pg (25-35) Mean Corpuscular Hemoglobin Concent 32 g/dL (31-37) Red Cell Distribution Width 15.3 % (11.5-14.5) Platelet Count 192 x10^3/uL (140-400) Neutrophils (%) (Auto) 87 % (31-73) Lymphocytes (%) (Auto) 6 % (24-48) Monocytes (%) (Auto) 7 % (0-9) Eosinophils (%) (Auto) 0 % (0-3) Basophils (%) (Auto) 0 % (0-3) Neutrophils # (Auto) 18.7 x10^3/uL (1.8-7.7) Lymphocytes # (Auto) 1.3 x10^3/uL (1.0-4.8) Monocytes # (Auto) 1.5 x10^3/uL (0.0-1.1) Eosinophils # (Auto) 0.0 x10^3/uL (0.0-0.7) Basophils # (Auto) 0.0 x10^3/uL (0.0-0.2) Microbiology 06/08/19 Blood Culture - Preliminary, Resulted NO GROWTH AFTER 1 DAY Medications Current Medications Ibuprofen (Motrin) 800 mg 1X ONCE PO Last administered on 06/08/19at 19:56; Start 06/08/19 at 20:00; Stop 06/08/19 at 20:01; Status DC Acetaminophen (Tylenol) 1,000 mg 1X ONCE PO Last administered on 06/08/19at 19:56; Start 06/08/19 at 20:00; Stop 06/08/19 at 20:01; Status DC Vancomycin HCl 250 ml @ 250 mls/hr 1X ONCE IV ; Start 06/08/19 at 18:45; Stop 06/08/19 at 19:44; Status UNV Cefazolin Sodium/ Dextrose 50 ml @ 100 mls/hr 1X ONCE IV Last administered on 06/08/19at 20:02; Start 06/08/19 at 20:00; Stop 06/08/19 at 20:29; Status DC Sodium Chloride 1,000 ml @ 1,000 mls/hr 1X ONCE IV Last administered on 06/08/19at 20:02; Start 06/08/19 at 20:00; Stop 06/08/19 at 20:59; Status DC Vancomycin HCl 2 gm/Sodium Chloride 500 ml @ 250 mls/hr 1X ONCE IV Last administered on 06/08/19at 20:43; Start 06/08/19 at 20:00; Stop 06/08/19 at 21:59; Status DC Ondansetron HCl (Zofran) 4 mg PRN Q8HRS PRN IV NAUSEA/VOMITING Last administered on 06/09/19at 11:15; Start 06/08/19 at 20:15; Stop 06/09/19 at 20:14; Status DC Morphine Sulfate (Morphine Sulfate) 4 mg PRN Q6HRS PRN IV PAIN Last administered on 06/09/19at 11:16; Start 06/08/19 at 20:15; Stop 06/09/19 at 20:14; Status DC Cefazolin Sodium/ Dextrose 50 ml @ 100 mls/hr Q8HRS IV Last administered on 06/10/19at 06:36; Start 06/09/19 at 06:00 Vancomycin HCl (Vanco Per Pharmacy) 1 each PRN DAILY PRN MC SEE COMMENTS Last administered on 06/09/19at 21:02; Start 06/08/19 at 20:30 Vancomycin HCl 1.5 gm/Sodium Chloride 500 ml @ 250 mls/hr Q8H IV Last administered on 06/08/19at 05:00; Start 06/08/19 at 05:00; Stop 06/08/19 at 21:21; Status DC Vancomycin HCl (Vancomycin Trough Level) 1 each 1X ONCE MC Last administered on 06/09/19at 20:30; Start 06/09/19 at 20:30; Stop 06/09/19 at 20:31; Status DC Vancomycin HCl 1.5 gm/Sodium Chloride 500 ml @ 250 mls/hr Q8H IV Last administered on 06/10/19at 04:15; Start 06/09/19 at 05:00 Lactobacillus Rhamnosus (Culturelle) 1 cap BID PO Last administered on 06/09/19at 21:32; Start 06/09/19 at 21:00 Heparin Sodium (Porcine) (Heparin Sodium) 5,000 unit Q8HRS SQ Last administered on 06/10/19at 06:41; Start 06/09/19 at 22:00 Furosemide (Lasix) 40 mg DAILY PO ; Start 06/10/19 at 09:00 Potassium Chloride (Klor-Con) 10 meq DAILYWBKFT PO ; Start 06/10/19 at 08:00; Stop 06/09/19 at 16:03; Status DC Potassium Chloride (Klor-Con) 20 meq 1X ONCE PO ; Start 06/09/19 at 15:15; Stop 06/09/19 at 15:59; Status DC Perflutren Protein Type A Microsphe (Optison) 0.66 mg 1X ONCE IV ; Start 06/09/19 at 15:45; Stop 06/09/19 at 15:46; Status DC Perflutren Protein Type A Microsphe (Optison) 0.66 mg STK-MED ONCE IV ; Start 06/09/19 at 15:47; Stop 06/09/19 at 15:47; Status DC Potassium Bicarbonate (Potassium Effervescent Tablet) 20 meq 1X ONCE PO Last administered on 06/09/19at 16:17; Start 06/09/19 at 16:00; Stop 06/09/19 at 16:05; Status DC Potassium Bicarbonate (Potassium Effervescent Tablet) 10 meq DAILY ONCE PO ; Start 06/10/19 at 09:00; Stop 06/10/19 at 09:01; Status DC Simethicone (Gas-X) 40 mg PRN Q4HRS PRN PO GAS / BLOATING Last administered on 06/10/19at 01:14; Start 06/09/19 at 23:45 Active Scripts Active Reported [water pill] Turmeric (Turmeric Root Extract) 538 Mg Capsule 538 Mg PO DAILY Vitals/I & O Vital Sign - Last 24 Hours 06/09/19 06/09/19 06/09/19 06/09/19 11:00 11:16 11:46 15:00 Temp 100.8 100.8 Pulse 117 122 Resp 18 18 18 18 B/P (MAP) 142/72 (95) 88/58 (68) Pulse Ox 90 96 O2 Delivery Room Air Room Air Room Air Room Air 06/09/19 06/09/19 06/09/19 06/10/19 19:00 19:45 23:00 03:00 Temp 98.2 97.7 98.5 98.2 97.7 98.5 Pulse 123 114 104 Resp 23 24 20 B/P (MAP) 151/84 (106) 117/69 (85) 142/76 (98) Pulse Ox 92 94 96 O2 Delivery Room Air Room Air Room Air Room Air 06/10/19 07:59 Temp 99.6 99.6 Pulse 102 Resp 20 B/P (MAP) 112/63 (79) Pulse Ox 95 O2 Delivery Room Air Intake and Output 06/09/19 06/09/19 06/10/19 15:00 23:00 07:00 Intake Total 2560 ml 100 ml 500 ml Output Total 200 ml 600 ml 300 ml Balance 2360 ml -500 ml 200 ml MARIA ELENA MATUTE MD Jun 10, 2019 09:57
[2019-06-10] MEDS: FUROSEMIDE 40 MG TABLET. PO SCH (10:32)
[2019-06-10] MEDS: LACTOBACILLUS RHAMNOSUS GG 1 CAPSULE. PO SCH ×3 (10:32→21:59)
[2019-06-10] MEDS: VANCOMYCIN PER PHARMACY MC PRN (11:12)
[2019-06-10 11:59] VITALS: BP 132/69
--- NOTE | 2019-06-10 12:46 | PDOC ---
Infectious Disease Note Vital Sign Vital Signs Vital Signs Date Time Temp Pulse Resp B/P (MAP) Pulse Ox O2 Delivery O2 Flow Rate FiO2 06/10/19 07:59 99.6 102 20 112/63 (79) 95 Room Air 99.6 Labs Lab Laboratory Tests Test 06/09/19 20:20 06/10/19 07:05 06/10/19 07:10 Vancomycin Level Trough 11.7 mcg/mL (10.0-20.0) Vancomycin Last Dose Date 06/09/19 Vancomycin Last Dose Time 1300 Sodium Level 130 mmol/L (136-145) Potassium Level 3.3 mmol/L (3.5-5.1) Chloride Level 96 mmol/L (98-107) Carbon Dioxide Level 27 mmol/L (21-32) Anion Gap 7 (6-14) Blood Urea Nitrogen 13 mg/dL (8-26) Creatinine 1.2 mg/dL (0.7-1.3) Estimated GFR (Cockcroft-Gault) 64.1 BUN/Creatinine Ratio 11 (6-20) Glucose Level 155 mg/dL (70-99) Calcium Level 8.7 mg/dL (8.5-10.1) Total Bilirubin 0.9 mg/dL (0.2-1.0) Aspartate Amino Transf (AST/SGOT) 117 U/L (15-37) Alanine Aminotransferase (ALT/SGPT) 111 U/L (16-63) Alkaline Phosphatase 92 U/L (46-116) Total Protein 7.4 g/dL (6.4-8.2) Albumin 2.2 g/dL (3.4-5.0) Albumin/Globulin Ratio 0.4 (1.0-1.7) White Blood Count 21.6 x10^3/uL (4.0-11.0) Red Blood Count 4.64 x10^6/uL (4.30-5.70) Hemoglobin 12.7 g/dL (13.0-17.5) Hematocrit 39.2 % (39.0-53.0) Mean Corpuscular Volume 85 fL (79-100) Mean Corpuscular Hemoglobin 27 pg (25-35) Mean Corpuscular Hemoglobin Concent 32 g/dL (31-37) Red Cell Distribution Width 15.3 % (11.5-14.5) Platelet Count 192 x10^3/uL (140-400) Neutrophils (%) (Auto) 87 % (31-73) Lymphocytes (%) (Auto) 6 % (24-48) Monocytes (%) (Auto) 7 % (0-9) Eosinophils (%) (Auto) 0 % (0-3) Basophils (%) (Auto) 0 % (0-3) Neutrophils # (Auto) 18.7 x10^3/uL (1.8-7.7) Lymphocytes # (Auto) 1.3 x10^3/uL (1.0-4.8) Monocytes # (Auto) 1.5 x10^3/uL (0.0-1.1) Eosinophils # (Auto) 0.0 x10^3/uL (0.0-0.7) Basophils # (Auto) 0.0 x10^3/uL (0.0-0.2) Micro Microbiology 06/08/19 Blood Culture - Preliminary, Resulted NO GROWTH AFTER 1 DAY Objective Assessment Severe cellulitis with large bullae left lower extremitiy Fever Leukocytosis Yeast in groin Transaminits Super morbid obesity Exposure Influenza Chronic heart failure Loose stools Plan Plan of Care may have difficulty reaching therapeutic levels of vancomycin given body habitus, switch to dapto Change Cefazolin to Zosyn, add Zyvox for toxin binding and micafungin for treatment yeast Culture drainage Monitor WBC, temp and renal function closely Local wound care Thank you [id number] Attending Co-Sign The patient was seen , interviewed as well as examined at the bedside. The chart was reviewed. The case was discussed. Agree with the above plan of care. LAURI BELL APRN Jun 10, 2019 12:45 CASSIDY POPE MD Jun 10, 2019 15:21
--- NOTE | 2019-06-10 13:08 | CONS ---
DATE OF CONSULTATION: 06/10/2019 REFERRING PHYSICIAN: Dr. Elizalde. REASON FOR CONSULTATION: Cellulitis. HISTORY OF PRESENT ILLNESS: This patient is a 49-year-old male, super morbidly obese with a BMI of 83.5 and a history of chronic left lower extremity lymphedema who about 3 days ago developed left leg pain. Over the following 2 days, he developed worsening pain, redness and swelling associated with fevers and chills. On arrival to the ER, he had temperature 103.2 and elevated white blood cell count of 15,000, segs 46%, bands 39%. Head ultrasound showed no evidence of DVT from the common femoral vein through the popliteal vein. The calf veins were not assessed due to body habitus. He was dosed with vancomycin and cefazolin in ER. The patient reports drainage and need to change dressing. He is feeling a little bit better. He denies injury or trauma. Denies recent antibiotics or hospitalizations within last several months. He was recently exposed to influenza from his son. He complains of a dry cough. Denies shortness of air, chest discomfort, headache, nasal/sinus congestion or sore throat. He has been having some loose stools. He has lost his appetite. Denies nausea, vomiting or cramps. Denies rash or itching. PAST MEDICAL HISTORY: Chronic diastolic congestive heart failure, super morbid obesity, chronic lymphedema of left lower extremity, osteoarthritis. PAST SURGICAL HISTORY: [place] teeth extraction. FAMILY HISTORY: Heart disease. SOCIAL HISTORY: He is not . He lives at home. He does not smoke. ALLERGIES: No known drug allergies. MEDICATIONS: Vancomycin, cefazolin, Lasix, Probiotics, morphine, ondansetron, potassium, simethicone, Perflutren protein A. REVIEW OF SYSTEMS: Per HPI, otherwise all other review of systems negative. PHYSICAL EXAMINATION: VITAL SIGNS: Temperature is 99.6, blood pressure 112/63, heart rate 102, respiratory rate 20 and pulse oximetry 95% on room air. GENERAL: The patient is propped up in bed, alert, in no apparent distress. HEENT: Pupils equally round, reactive. Oral cavity: Pharynx pink and moist. NECK: Supple. LUNGS: Diminished aeration at the bases. Nonlabored. HEART: Distant heart sounds. ABDOMEN: Obese, soft, nontender with bowel sounds present. EXTREMITIES: Chronic venous changes in lower extremities bilaterally. His left leg is markedly red up to mid thigh area, warm and tender with large several blisters, few of which are draining yellowish serous fluid and purulence. SKIN: He has some yeast in the groin area. NEUROLOGIC: Alert and answering questions appropriately. LABORATORY DATA: Today's WBC 21.6, hemoglobin 12.7, platelets 192,000. Sodium 130, potassium 3.3, creatinine 1.2, BUN 13. Hemoglobin A1c 6.0. Lactic acid 1.6, total bilirubin 0.9, AST 117, ALT 111, albumin 2.2. TSH 1.033. Vancomycin trough 11.7. Urinalysis unremarkable for infection. Blood cultures from 06/09 negative to date. Influenza screen negative. Lower extremity ultrasound per HPI. Chest x-ray showed increased lung markings as well as a component of pulmonary edema. No superimposed focal opacity to suggest organizing pneumonia. Blood cultures from 06/08 negative to date. IMPRESSION: 1. Severe cellulitis with large bullae, left lower extremity. 2. Fever. 3. Leukocytosis. 4. Yeast in groin area. 5. Transaminitis. 6. Super morbid obesity. 7. Exposure to influenza. 8. Chronic congestive heart failure. 9. Loose stools. PLAN: The patient may have difficulty reaching therapeutic levels of vancomycin given his body habitus. We will switch to daptomycin. Also, we will expand antibiotic coverage to Zosyn and add Zyvox for toxic binding as well as add micafungin for treatment of yeast. Order to obtain a culture of the drainage has been placed. Continue to monitor WBC count, temperature and renal function closely. Local wound care. The patient is seen and examined and plan of care implemented by Dr. Cassidy Pope. Thank you, Dr. Elizalde for asking us to participate in this patient's care. Should you have further questions or concerns, please call. CASSIDY POPE MD DR: DALY/ken JOB#: [id number] / [id number]
[2019-06-10] MEDS: PIPERACILLIN/TAZOBACTAM 3.375 GM in IV NORMAL SALINE 50ML 50 ML IV SCH ×2 (14:05→19:55)
[2019-06-10] MEDS ORDERED: POTASSIUM CHLORIDE 20 MEQ TABLET.ER. PO ONE (15:30)
[2019-06-10 15:59] VITALS: BP 140/65
[2019-06-10] MEDS: DAPTOMYCIN IV SCH (16:53)
[2019-06-10] MEDS: NORMAL SALINE IV SCH (16:53)
[2019-06-10] MEDS: MICAFUNGIN 100 MG in IV DEXTROSE 5% 100ML 100 ML IV SCH (18:10)
[2019-06-10 19:00] VITALS: BP 150/92
[2019-06-10] MEDS ORDERED: HYDROmorphone 2 MG/ML VIAL IV ONE (19:00)
[2019-06-10] MEDS: HYDROmorphone 2 MG/ML VIAL IV PRN (20:06)
[2019-06-10] MEDS: LINEZOLID 600 MG TABLET PO SCH ×2 (21:00→21:59)
--- NOTE | 2019-06-10 22:00 | NUR ---
This nurse gave the patient Dilaudid 1mg per the order for pain at 2005. Later around 2099, when the nurse went to dress the patient's wounds, it was hard to wake him up. After several attempts, the patient woke up and was able to tell his name and where he was, although it was hard for him to stay awake. The nurse stayed with the patient, took his vitals, Bp was 167/91, SO2 96, HR 112, and 16 RR. Finally, the patient was awake enough to tell the nurse that he has never taken pain medication other than over the counter ones. This nurse will pass on the information to the day shift nurse. Patient is resting in his room, and the nurse will continue to monitor him.
[2019-06-10 23:03] VITALS: BP 167/91
[2019-06-11] MEDS: PIPERACILLIN/TAZOBACTAM 3.375 GM in IV NORMAL SALINE 50ML 50 ML IV SCH ×4 (00:21→18:12)
[2019-06-11 03:04] VITALS: BP 165/98
[2019-06-11] MEDS: HEPARIN for SUB-Q USE 5,000 UNIT/ML VIAL. SQ SCH ×3 (05:54→22:37)
[2019-06-11 07:00] VITALS: BP 150/91
[2019-06-11] MEDS: LINEZOLID 600 MG TABLET PO SCH ×2 (09:03→22:30)
[2019-06-11] MEDS: LACTOBACILLUS RHAMNOSUS GG 1 CAPSULE. PO SCH ×2 (09:03→22:29)
[2019-06-11] MEDS: FUROSEMIDE 40 MG TABLET. PO SCH (09:04)
[2019-06-11] MEDS: POTASSIUM CHLORIDE 20 MEQ TABLET.ER. PO SCH (09:04)
--- NOTE | 2019-06-11 10:44 | PDOC ---
PROGRESS NOTES History of Present Illness History of Present Illness VTE Prophylaxis Ordered VTE Prophylaxis Devices: Contraindicated VTE Pharmacological Prophylaxi: Yes Assessment/Plan Assessment/Plan Impression: Left leg cellulitis PULM EDEMA EXTREME MORBID OBESITY on echo, 06/09 Ejection Fraction is 55-60%. mild to moderate concentric left ventricular hypertrophy. severe protein-caloric malnutrition hypokalemia SEPSIS 06/11 PAIN NOT WELL CONTROLLED /// Tmax 101.1, ADMITTED IV ANTIBIOTICS, VANC d/c ID CONSULT CARDS CONSULT ECHO DVT PROPHYLAXIS, HEPARIN Zosyn, add Zyvox for toxin binding and micafungin replete k 36 min pt exam, chart review, > 50% of time spent with exam, chart review, pt care coordination Vitals Vitals Vital Signs Date Time Temp Pulse Resp B/P (MAP) Pulse Ox O2 Delivery O2 Flow Rate FiO2 06/11/19 08:00 Room Air 06/11/19 07:00 97.8 103 20 150/91 (110) 95 2.0 97.8 Physical Exam General: Alert, Oriented X3, Cooperative, No acute distress Heart: Regular rate, Other (distant heart sounds) Lungs: Clear Abdomen: Normal bowel sounds, Soft, No tenderness Extremities: No cyanosis, Other (chronic lymphedema with LLE cellulitis) Skin: Other (LE venous dermatitis; blisters to left calf dark erythema from below knee to ankle with pitting edema) Assessment and Plan Assessmemt and Plan Problems Medical Problems: (1) Left leg cellulitis Status: Acute Comment Review of Relevant I have reviewed the following items beny (where applicable) has been applied. Labs Laboratory Tests Test 06/09/19 20:20 06/10/19 07:05 06/10/19 07:10 Vancomycin Level Trough 11.7 mcg/mL (10.0-20.0) Vancomycin Last Dose Date 06/09/19 Vancomycin Last Dose Time 1300 Sodium Level 130 mmol/L (136-145) Potassium Level 3.3 mmol/L (3.5-5.1) Chloride Level 96 mmol/L (98-107) Carbon Dioxide Level 27 mmol/L (21-32) Anion Gap 7 (6-14) Blood Urea Nitrogen 13 mg/dL (8-26) Creatinine 1.2 mg/dL (0.7-1.3) Estimated GFR (Cockcroft-Gault) 64.1 BUN/Creatinine Ratio 11 (6-20) Glucose Level 155 mg/dL (70-99) Calcium Level 8.7 mg/dL (8.5-10.1) Total Bilirubin 0.9 mg/dL (0.2-1.0) Aspartate Amino Transf (AST/SGOT) 117 U/L (15-37) Alanine Aminotransferase (ALT/SGPT) 111 U/L (16-63) Alkaline Phosphatase 92 U/L (46-116) Total Protein 7.4 g/dL (6.4-8.2) Albumin 2.2 g/dL (3.4-5.0) Albumin/Globulin Ratio 0.4 (1.0-1.7) White Blood Count 21.6 x10^3/uL (4.0-11.0) Red Blood Count 4.64 x10^6/uL (4.30-5.70) Hemoglobin 12.7 g/dL (13.0-17.5) Hematocrit 39.2 % (39.0-53.0) Mean Corpuscular Volume 85 fL (79-100) Mean Corpuscular Hemoglobin 27 pg (25-35) Mean Corpuscular Hemoglobin Concent 32 g/dL (31-37) Red Cell Distribution Width 15.3 % (11.5-14.5) Platelet Count 192 x10^3/uL (140-400) Neutrophils (%) (Auto) 87 % (31-73) Lymphocytes (%) (Auto) 6 % (24-48) Monocytes (%) (Auto) 7 % (0-9) Eosinophils (%) (Auto) 0 % (0-3) Basophils (%) (Auto) 0 % (0-3) Neutrophils # (Auto) 18.7 x10^3/uL (1.8-7.7) Lymphocytes # (Auto) 1.3 x10^3/uL (1.0-4.8) Monocytes # (Auto) 1.5 x10^3/uL (0.0-1.1) Eosinophils # (Auto) 0.0 x10^3/uL (0.0-0.7) Basophils # (Auto) 0.0 x10^3/uL (0.0-0.2) Microbiology 06/08/19 Blood Culture - Preliminary, Resulted NO GROWTH AFTER 2 DAYS Medications Current Medications Ibuprofen (Motrin) 800 mg 1X ONCE PO Last administered on 06/08/19 19:56; Start 06/08/19 at 20:00; Stop 06/08/19 at 20:01; Status DC Acetaminophen (Tylenol) 1,000 mg 1X ONCE PO Last administered on 06/08/19at 19:56; Start 06/08/19 at 20:00; Stop 06/08/19 at 20:01; Status DC Vancomycin HCl 250 ml @ 250 mls/hr 1X ONCE IV ; Start 06/08/19 at 18:45; Stop 06/08/19 at 19:44; Status UNV Cefazolin Sodium/ Dextrose 50 ml @ 100 mls/hr 1X ONCE IV Last administered on 06/08/19at 20:02; Start 06/08/19 at 20:00; Stop 06/08/19 at 20:29; Status DC Sodium Chloride 1,000 ml @ 1,000 mls/hr 1X ONCE IV Last administered on 06/08/19at 20:02; Start 06/08/19 at 20:00; Stop 06/08/19 at 20:59; Status DC Vancomycin HCl 2 gm/Sodium Chloride 500 ml @ 250 mls/hr 1X ONCE IV Last administered on 06/08/19at 20:43; Start 06/08/19 at 20:00; Stop 06/08/19 at 21:59; Status DC Ondansetron HCl (Zofran) 4 mg PRN Q8HRS PRN IV NAUSEA/VOMITING Last administered on 06/09/19 11:15; Start 06/08/19 at 20:15; Stop 06/09/19 at 20:14; Status DC Morphine Sulfate (Morphine Sulfate) 4 mg PRN Q6HRS PRN IV PAIN Last administered on 06/09/19at 11:16; Start 06/08/19 at 20:15; Stop 06/09/19 at 20:14; Status DC Cefazolin Sodium/ Dextrose 50 ml @ 100 mls/hr Q8HRS IV Last administered on 06/10/19at 06:36; Start 06/09/19 at 06:00; Stop 06/10/19 at 12:42; Status DC Vancomycin HCl (Vanco Per Pharmacy) 1 each PRN DAILY PRN MC SEE COMMENTS Last administered on 06/10/19at 11:12; Start 06/08/19 at 20:30; Stop 06/10/19 at 12:42; Status DC Vancomycin HCl 1.5 gm/Sodium Chloride 500 ml @ 250 mls/hr Q8H IV Last administered on 06/08/19at 05:00; Start 06/08/19 at 05:00; Stop 06/08/19 at 21:21; Status DC Vancomycin HCl (Vancomycin Trough Level) 1 each 1X ONCE MC Last administered on 06/09/19at 20:30; Start 06/09/19 at 20:30; Stop 06/09/19 at 20:31; Status DC Vancomycin HCl 1.5 gm/Sodium Chloride 500 ml @ 250 mls/hr Q8H IV Last administered on 06/10/19at 04:15; Start 06/09/19 at 05:00; Stop 06/10/19 at 12:42; Status DC Lactobacillus Rhamnosus (Culturelle) 1 cap BID PO Last administered on 06/11/19at 09:03; Start 06/09/19 at 21:00 Heparin Sodium (Porcine) (Heparin Sodium) 5,000 unit Q8HRS SQ Last administered on 06/11/19at 05:54; Start 06/09/19 at 22:00 Furosemide (Lasix) 40 mg DAILY PO Last administered on 06/11/19at 09:04; Start 06/10/19 at 09:00 Potassium Chloride (Klor-Con) 10 meq DAILYWBKFT PO ; Start 06/10/19 at 08:00; Stop 06/09/19 at 16:03; Status DC Potassium Chloride (Klor-Con) 20 meq 1X ONCE PO ; Start 06/09/19 at 15:15; Stop 06/09/19 at 15:59; Status DC Perflutren Protein Type A Microsphe (Optison) 0.66 mg 1X ONCE IV ; Start 06/09/19 at 15:45; Stop 06/09/19 at 15:46; Status DC Perflutren Protein Type A Microsphe (Optison) 0.66 mg STK-MED ONCE IV ; Start 06/09/19 at 15:47; Stop 06/09/19 at 15:47; Status DC Potassium Bicarbonate (Potassium Effervescent Tablet) 20 meq 1X ONCE PO Last administered on 06/09/19at 16:17; Start 06/09/19 at 16:00; Stop 06/09/19 at 16:05; Status DC Potassium Bicarbonate (Potassium Effervescent Tablet) 10 meq DAILY ONCE PO Last administered on 06/10/19at 10:33; Start 06/10/19 at 09:00; Stop 06/10/19 at 09:01; Status DC Simethicone (Gas-X) 40 mg PRN Q4HRS PRN PO GAS / BLOATING Last administered on 06/10/19at 01:14; Start 06/09/19 at 23:45 Daptomycin 1000 mg/Sodium Chloride 50 ml @ 100 mls/hr Q24H IV Last administered on 06/10/19 16:53; Start 06/10/19 at 13:00 Linezolid (Zyvox) 600 mg BID PO Last administered on 06/11/19 09:03; Start 06/10/19 at 21:00 Piperacillin Sod/ Tazobactam Sod 3.375 gm/Sodium Chloride 50 ml @ 100 mls/hr Q6HRS IV Last administered on 06/11/19at 05:46; Start 06/10/19 at 13:00 Micafungin Sodium 100 mg/Dextrose 100 ml @ 100 mls/hr Q24H IV Last administered on 06/10/19 18:10; Start 06/10/19 at 14:00 Potassium Chloride (Klor-Con) 40 meq 1X ONCE PO Last administered on 06/10/19at 18:08; Start 06/10/19 at 15:30; Stop 06/10/19 at 15:38; Status DC Potassium Chloride (Klor-Con) 20 meq DAILYWBKFT PO Last administered on 06/11/19at 09:04; Start 06/11/19 at 08:00 Hydromorphone HCl (Dilaudid) 1 mg 1X ONCE IV ; Start 06/10/19 at 19:00; Stop 06/10/19 at 19:01; Status Cancel Hydromorphone HCl (Dilaudid) 1 mg PRN Q4HRS PRN IV PAIN Last administered on 06/10/19at 20:06; Start 06/10/19 at 19:00 Active Scripts Active Reported [water pill] Turmeric (Turmeric Root Extract) 538 Mg Capsule 538 Mg PO DAILY Vitals/I & O Vital Sign - Last 24 Hours 06/10/19 06/10/19 06/10/19 06/10/19 11:59 15:59 19:00 20:06 Temp 100.9 101.1 100.4 100.9 101.1 100.4 Pulse 98 105 112 Resp 22 20 20 B/P (MAP) 132/69 (90) 140/65 (90) 150/92 (111) Pulse Ox 95 94 92 92 O2 Delivery Room Air Room Air Nasal Cannula Room Air 06/10/19 06/10/19 06/10/19 06/11/19 20:30 20:36 23:03 03:04 Temp 98.2 97.9 98.2 97.9 Pulse 114 109 Resp 20 B/P (MAP) 167/91 (116) 165/98 (120) Pulse Ox 92 96 96 O2 Delivery Nasal Cannula Room Air Nasal Cannula Nasal Cannula O2 Flow Rate 2.0 06/11/19 06/11/19 07:00 08:00 Temp 97.8 97.8 Pulse 103 Resp 20 B/P (MAP) 150/91 (110) Pulse Ox 95 O2 Delivery Nasal Cannula Room Air O2 Flow Rate 2.0 Intake and Output 06/10/19 06/10/19 06/11/19 15:00 23:00 07:00 Intake Total 170 ml 150 ml 2100 ml Output Total 350 ml 400 ml Balance -180 ml 150 ml 1700 ml MARIA ELENA MATUTE MD Jun 11, 2019 10:43
[2019-06-11 11:02] VITALS: BP 142/82
--- NOTE | 2019-06-11 12:21 | PDOC ---
Infectious Disease Note Subjective Subjective Tmax 101.1, no fevers since last evening so far Pain level is about the same Loose stools better Vital Sign Vital Signs Vital Signs Date Time Temp Pulse Resp B/P (MAP) Pulse Ox O2 Delivery O2 Flow Rate FiO2 06/11/19 11:02 97.9 94 20 142/82 (102) 95 Nasal Cannula 2.0 97.9 Physical Exam PHYSICAL EXAM GENERAL: Propped up in bed, alert, eating and watching TV HEENT: Pupils equally round, reactive. Oral cavity: Pharynx pink and moist. NECK: Supple. LUNGS: Diminished aeration at the bases. Nonlabored. HEART: Distant heart sounds. ABDOMEN: Obese, soft, nontender with bowel sounds present. EXTREMITIES: Chronic venous changes in lower extremities bilaterally. His left leg is markedly red up to knee, warm and tender with large several blisters, few of which are draining yellowish serous fluid and purulence. SKIN: + yeast in the groin area. NEUROLOGIC: Alert and answering questions appropriately. PIV Labs Micro Microbiology 06/08/19 Blood Culture - Preliminary, Resulted NO GROWTH AFTER 2 DAY Objective Assessment Severe cellulitis with large bullae left lower extremitiy Fever Leukocytosis Yeast in groin Transaminits Super morbid obesity Exposure Influenza Chronic heart failure Loose stools Plan Plan of Care Continue dapto, Zosyn and micafungin Probiotics Monitor WBC, temp and renal function closely CK in am Local wound care f/u cultures Attending Co-Sign The patient was seen and interviewed as well as examined at the bedside. The chart was reviewed. The case was discussed. Agree with the plan of care. LAURI BELL APRN Jun 11, 2019 12:21 AMERICO POPE MD Jun 11, 2019 12:33
[2019-06-11 13:07] LABS: BASO % 0 % (0-3); EOS % 0 % (0-3); HEMOGLOBIN 13.2 g/dL (13.0-17.5); LYMPH # 1.2 x10^3/uL (1.0-4.8); LYMPH % 8 % (24-48); MEAN CORPUSCULAR HEMOGLOBIN 27 pg (25-35); MEAN CORPUSCULAR HGB CONC 32 g/dL (31-37); MEAN CORPUSCULAR VOLUME 85 fL (79-100); MONO # 1.2 x10^3/uL (0.0-1.1); MONO % 8 % (0-9); NEUT # 12.9 x10^3/uL (1.8-7.7); NEUT % 84 % (31-73); PLATELET COUNT 242 x10^3/uL (140-400); RED BLOOD COUNT 4.81 x10^6/uL (4.30-5.70); RED CELL DISTRIBUTION WIDTH 15.2 % (11.5-14.5); WHITE BLOOD COUNT 15.3 x10^3/uL (4.0-11.0)
[2019-06-11 13:22] LABS: ALBUMIN/GLOBULIN RATIO 0.4 (1.0-1.7); CALCIUM 8.7 mg/dL (8.5-10.1); CREATININE 1.2 mg/dL (0.7-1.3); GFR 64.1; POTASSIUM 3.5 mmol/L (3.5-5.1); TOTAL BILIRUBIN 0.6 mg/dL (0.2-1.0); TOTAL PROTEIN 7.4 g/dL (6.4-8.2)
[2019-06-11] MEDS: MICAFUNGIN 100 MG in IV DEXTROSE 5% 100ML 100 ML IV SCH (14:01)
[2019-06-11 14:46] VITALS: BP 138/74
[2019-06-11] MEDS: DAPTOMYCIN IV SCH (16:12)
[2019-06-11] MEDS: NORMAL SALINE IV SCH (16:12)
[2019-06-11] MEDS: HYDROmorphone 2 MG/ML VIAL IV PRN ×2 (16:47→22:44)
[2019-06-11 19:10] VITALS: BP 119/82
[2019-06-11 23:17] VITALS: BP 150/96
[2019-06-12] MEDS: PIPERACILLIN/TAZOBACTAM 3.375 GM in IV NORMAL SALINE 50ML 50 ML IV SCH ×4 (00:22→17:58)
[2019-06-12 03:07] VITALS: BP 134/79
[2019-06-12] MEDS: HEPARIN for SUB-Q USE 5,000 UNIT/ML VIAL. SQ SCH ×3 (05:55→21:03)
[2019-06-12 07:00] VITALS: BP 140/87
[2019-06-12] MEDS: FUROSEMIDE 40 MG TABLET. PO SCH (08:56)
[2019-06-12] MEDS: LINEZOLID 600 MG TABLET PO SCH ×2 (08:56→20:56)
[2019-06-12] MEDS: LACTOBACILLUS RHAMNOSUS GG 1 CAPSULE. PO SCH ×2 (08:56→20:56)
[2019-06-12] MEDS: POTASSIUM CHLORIDE 20 MEQ TABLET.ER. PO SCH (08:56)
[2019-06-12] MEDS ORDERED: ZOLPIDEM 5 MG TABLET. PO PRN (10:30)
[2019-06-12] MEDS ORDERED: CALCIUM CARBONATE 500 MG TAB.CHEW PO PRN (10:30)
[2019-06-12] MEDS ORDERED: LOPERAMIDE 2 MG CAPSULE PO PRN (10:30)
[2019-06-12 11:00] VITALS: BP 136/87
--- NOTE | 2019-06-12 11:01 | PDOC ---
Infectious Disease Note Subjective Subjective feeling ok, leg pain present, ROS ROS no n/v/d/sob Vital Sign Vital Signs Vital Signs Date Time Temp Pulse Resp B/P (MAP) Pulse Ox O2 Delivery O2 Flow Rate FiO2 06/12/19 07:00 99.0 89 18 140/87 (104) 95 Nasal Cannula 2.5 99.0 Physical Exam PHYSICAL EXAM GENERAL: Propped up in bed, alert, eating and watching TV HEENT: Pupils equally round, reactive. Oral cavity: Pharynx pink and moist. NECK: Supple. LUNGS: Diminished aeration at the bases. Nonlabored. HEART: Distant heart sounds. ABDOMEN: Obese, soft, nontender with bowel sounds present. EXTREMITIES: Chronic venous changes in lower extremities bilaterally. His left leg is markedly red up to knee, warm and tender with large several blisters, few of which are draining yellowish serous fluid and purulence. SKIN: + yeast in the groin area. NEUROLOGIC: Alert and answering questions appropriately. PIV Labs Lab Laboratory Tests Test 06/11/19 12:35 06/12/19 03:35 White Blood Count 15.3 x10^3/uL (4.0-11.0) Red Blood Count 4.81 x10^6/uL (4.30-5.70) Hemoglobin 13.2 g/dL (13.0-17.5) Hematocrit 41.0 % (39.0-53.0) Mean Corpuscular Volume 85 fL (79-100) Mean Corpuscular Hemoglobin 27 pg (25-35) Mean Corpuscular Hemoglobin Concent 32 g/dL (31-37) Red Cell Distribution Width 15.2 % (11.5-14.5) Platelet Count 242 x10^3/uL (140-400) Neutrophils (%) (Auto) 84 % (31-73) Lymphocytes (%) (Auto) 8 % (24-48) Monocytes (%) (Auto) 8 % (0-9) Eosinophils (%) (Auto) 0 % (0-3) Basophils (%) (Auto) 0 % (0-3) Neutrophils # (Auto) 12.9 x10^3/uL (1.8-7.7) Lymphocytes # (Auto) 1.2 x10^3/uL (1.0-4.8) Monocytes # (Auto) 1.2 x10^3/uL (0.0-1.1) Eosinophils # (Auto) 0.0 x10^3/uL (0.0-0.7) Basophils # (Auto) 0.0 x10^3/uL (0.0-0.2) Sodium Level 133 mmol/L (136-145) Potassium Level 3.5 mmol/L (3.5-5.1) Chloride Level 95 mmol/L (98-107) Carbon Dioxide Level 32 mmol/L (21-32) Anion Gap 6 (6-14) Blood Urea Nitrogen 15 mg/dL (8-26) Creatinine 1.2 mg/dL (0.7-1.3) Estimated GFR (Cockcroft-Gault) 64.1 BUN/Creatinine Ratio 13 (6-20) Glucose Level 128 mg/dL (70-99) Calcium Level 8.7 mg/dL (8.5-10.1) Total Bilirubin 0.6 mg/dL (0.2-1.0) Aspartate Amino Transf (AST/SGOT) 124 U/L (15-37) Alanine Aminotransferase (ALT/SGPT) 113 U/L (16-63) Alkaline Phosphatase 106 U/L (46-116) Total Protein 7.4 g/dL (6.4-8.2) Albumin 2.0 g/dL (3.4-5.0) Albumin/Globulin Ratio 0.4 (1.0-1.7) Creatine Kinase 261 U/L (39-308) Micro Microbiology 06/08/19 Blood Culture - Preliminary, Resulted NO GROWTH AFTER 3 DAYS Objective Assessment Severe cellulitis with large bullae left lower extremitiy Fever Leukocytosis Yeast in groin Transaminits Super morbid obesity Exposure Influenza Chronic heart failure Loose stools Plan Plan of Care Continue dapto, Zosyn and micafungin Probiotics Monitor WBC, temp and renal function closely CK in am Local wound care f/u cultures AMERICO POPE MD Jun 12, 2019 11:01
--- NOTE | 2019-06-12 11:51 | NUR ---
Wound care: Patient seen per wound care per Dr. Rachel request to see patient as drainage has increased and take culture. Dressing removed and wound to left lower leg cleansed, assessed, and measured. Recommendations to cover with Aquacel Ag and ABD pads and kerlix. Culture of LLL wound taken and sent to lab. Dressing applied and wound care will follow up on Wednesday to reassess. Bed lowered and call light in reach.
--- NOTE | 2019-06-12 12:06 | PDOC ---
PROGRESS NOTES Chief Complaint Chief Complaint Severe cellulitis with large bullae left lower extremitiy Fever Leukocytosis Yeast in groin Transaminits Super morbid obesity Exposure Influenza Chronic heart failure Loose stools History of Present Illness History of Present Illness left leg i personally inspected NO fevers, non toxic appearing LEft leg looks good aside from the ruptured bullae with meds and dressing and surrounding edema Edema is soft, not too tight Na 133 T max 101 over the weekend - ID on board WBC 15 PLAN; CPM Follow cx Vitals Vitals Vital Signs Date Time Temp Pulse Resp B/P (MAP) Pulse Ox O2 Delivery O2 Flow Rate FiO2 06/12/19 08:00 Room Air 06/12/19 07:00 99.0 89 18 140/87 (104) 95 2.5 99.0 Physical Exam Physical Exam GENERAL: Propped up in bed, alert, eating and watching TV HEENT: Pupils equally round, reactive. Oral cavity: Pharynx pink and moist. NECK: Supple. LUNGS: Diminished aeration at the bases. Nonlabored. HEART: Distant heart sounds. ABDOMEN: Obese, soft, nontender with bowel sounds present. EXTREMITIES: Chronic venous changes in lower extremities bilaterally. His left leg is markedly red up to knee, warm and tender with large several blisters, few of which are draining yellowish serous fluid and purulence. SKIN: + yeast in the groin area. NEUROLOGIC: Alert and answering questions appropriately. PIV General: Alert, Oriented X3, Cooperative, No acute distress Heart: Regular rate, Other (distant heart sounds) Lungs: Clear Abdomen: Normal bowel sounds, Soft, No tenderness Extremities: No cyanosis, Other (chronic lymphedema with LLE cellulitis) Skin: Other (LE venous dermatitis; blisters to left calf dark erythema from below knee to ankle with pitting edema) Labs LABS Laboratory Tests Test 06/11/19 12:35 06/12/19 03:35 White Blood Count 15.3 x10^3/uL (4.0-11.0) Red Blood Count 4.81 x10^6/uL (4.30-5.70) Hemoglobin 13.2 g/dL (13.0-17.5) Hematocrit 41.0 % (39.0-53.0) Mean Corpuscular Volume 85 fL (79-100) Mean Corpuscular Hemoglobin 27 pg (25-35) Mean Corpuscular Hemoglobin Concent 32 g/dL (31-37) Red Cell Distribution Width 15.2 % (11.5-14.5) Platelet Count 242 x10^3/uL (140-400) Neutrophils (%) (Auto) 84 % (31-73) Lymphocytes (%) (Auto) 8 % (24-48) Monocytes (%) (Auto) 8 % (0-9) Eosinophils (%) (Auto) 0 % (0-3) Basophils (%) (Auto) 0 % (0-3) Neutrophils # (Auto) 12.9 x10^3/uL (1.8-7.7) Lymphocytes # (Auto) 1.2 x10^3/uL (1.0-4.8) Monocytes # (Auto) 1.2 x10^3/uL (0.0-1.1) Eosinophils # (Auto) 0.0 x10^3/uL (0.0-0.7) Basophils # (Auto) 0.0 x10^3/uL (0.0-0.2) Sodium Level 133 mmol/L (136-145) Potassium Level 3.5 mmol/L (3.5-5.1) Chloride Level 95 mmol/L (98-107) Carbon Dioxide Level 32 mmol/L (21-32) Anion Gap 6 (6-14) Blood Urea Nitrogen 15 mg/dL (8-26) Creatinine 1.2 mg/dL (0.7-1.3) Estimated GFR (Cockcroft-Gault) 64.1 BUN/Creatinine Ratio 13 (6-20) Glucose Level 128 mg/dL (70-99) Calcium Level 8.7 mg/dL (8.5-10.1) Total Bilirubin 0.6 mg/dL (0.2-1.0) Aspartate Amino Transf (AST/SGOT) 124 U/L (15-37) Alanine Aminotransferase (ALT/SGPT) 113 U/L (16-63) Alkaline Phosphatase 106 U/L (46-116) Total Protein 7.4 g/dL (6.4-8.2) Albumin 2.0 g/dL (3.4-5.0) Albumin/Globulin Ratio 0.4 (1.0-1.7) Creatine Kinase 261 U/L (39-308) Review of Systems Review of Systems some left leg pain, tolerable, all else 14 pt neg Assessment and Plan Assessmemt and Plan Problems Medical Problems: (1) Left leg cellulitis Status: Acute Comment Review of Relevant I have reviewed the following items beny (where applicable) has been applied. Labs Laboratory Tests Test 06/11/19 12:35 06/12/19 03:35 White Blood Count 15.3 x10^3/uL (4.0-11.0) Red Blood Count 4.81 x10^6/uL (4.30-5.70) Hemoglobin 13.2 g/dL (13.0-17.5) Hematocrit 41.0 % (39.0-53.0) Mean Corpuscular Volume 85 fL (79-100) Mean Corpuscular Hemoglobin 27 pg (25-35) Mean Corpuscular Hemoglobin Concent 32 g/dL (31-37) Red Cell Distribution Width 15.2 % (11.5-14.5) Platelet Count 242 x10^3/uL (140-400) Neutrophils (%) (Auto) 84 % (31-73) Lymphocytes (%) (Auto) 8 % (24-48) Monocytes (%) (Auto) 8 % (0-9) Eosinophils (%) (Auto) 0 % (0-3) Basophils (%) (Auto) 0 % (0-3) Neutrophils # (Auto) 12.9 x10^3/uL (1.8-7.7) Lymphocytes # (Auto) 1.2 x10^3/uL (1.0-4.8) Monocytes # (Auto) 1.2 x10^3/uL (0.0-1.1) Eosinophils # (Auto) 0.0 x10^3/uL (0.0-0.7) Basophils # (Auto) 0.0 x10^3/uL (0.0-0.2) Sodium Level 133 mmol/L (136-145) Potassium Level 3.5 mmol/L (3.5-5.1) Chloride Level 95 mmol/L (98-107) Carbon Dioxide Level 32 mmol/L (21-32) Anion Gap 6 (6-14) Blood Urea Nitrogen 15 mg/dL (8-26) Creatinine 1.2 mg/dL (0.7-1.3) Estimated GFR (Cockcroft-Gault) 64.1 BUN/Creatinine Ratio 13 (6-20) Glucose Level 128 mg/dL (70-99) Calcium Level 8.7 mg/dL (8.5-10.1) Total Bilirubin 0.6 mg/dL (0.2-1.0) Aspartate Amino Transf (AST/SGOT) 124 U/L (15-37) Alanine Aminotransferase (ALT/SGPT) 113 U/L (16-63) Alkaline Phosphatase 106 U/L (46-116) Total Protein 7.4 g/dL (6.4-8.2) Albumin 2.0 g/dL (3.4-5.0) Albumin/Globulin Ratio 0.4 (1.0-1.7) Creatine Kinase 261 U/L (39-308) Laboratory Tests Test 06/11/19 12:35 06/12/19 03:35 White Blood Count 15.3 x10^3/uL (4.0-11.0) Red Blood Count 4.81 x10^6/uL (4.30-5.70) Hemoglobin 13.2 g/dL (13.0-17.5) Hematocrit 41.0 % (39.0-53.0) Mean Corpuscular Volume 85 fL (79-100) Mean Corpuscular Hemoglobin 27 pg (25-35) Mean Corpuscular Hemoglobin Concent 32 g/dL (31-37) Red Cell Distribution Width 15.2 % (11.5-14.5) Platelet Count 242 x10^3/uL (140-400) Neutrophils (%) (Auto) 84 % (31-73) Lymphocytes (%) (Auto) 8 % (24-48) Monocytes (%) (Auto) 8 % (0-9) Eosinophils (%) (Auto) 0 % (0-3) Basophils (%) (Auto) 0 % (0-3) Neutrophils # (Auto) 12.9 x10^3/uL (1.8-7.7) Lymphocytes # (Auto) 1.2 x10^3/uL (1.0-4.8) Monocytes # (Auto) 1.2 x10^3/uL (0.0-1.1) Eosinophils # (Auto) 0.0 x10^3/uL (0.0-0.7) Basophils # (Auto) 0.0 x10^3/uL (0.0-0.2) Sodium Level 133 mmol/L (136-145) Potassium Level 3.5 mmol/L (3.5-5.1) Chloride Level 95 mmol/L (98-107) Carbon Dioxide Level 32 mmol/L (21-32) Anion Gap 6 (6-14) Blood Urea Nitrogen 15 mg/dL (8-26) Creatinine 1.2 mg/dL (0.7-1.3) Estimated GFR (Cockcroft-Gault) 64.1 BUN/Creatinine Ratio 13 (6-20) Glucose Level 128 mg/dL (70-99) Calcium Level 8.7 mg/dL (8.5-10.1) Total Bilirubin 0.6 mg/dL (0.2-1.0) Aspartate Amino Transf (AST/SGOT) 124 U/L (15-37) Alanine Aminotransferase (ALT/SGPT) 113 U/L (16-63) Alkaline Phosphatase 106 U/L (46-116) Total Protein 7.4 g/dL (6.4-8.2) Albumin 2.0 g/dL (3.4-5.0) Albumin/Globulin Ratio 0.4 (1.0-1.7) Creatine Kinase 261 U/L (39-308) Microbiology 06/08/19 Blood Culture - Preliminary, Resulted NO GROWTH AFTER 3 DAYS Medications Current Medications Ibuprofen (Motrin) 800 mg 1X ONCE PO Last administered on 06/08/19at 19:56; Start 06/08/19 at 20:00; Stop 06/08/19 at 20:01; Status DC Acetaminophen (Tylenol) 1,000 mg 1X ONCE PO Last administered on 06/08/19at 19:56; Start 06/08/19 at 20:00; Stop 06/08/19 at 20:01; Status DC Vancomycin HCl 250 ml @ 250 mls/hr 1X ONCE IV ; Start 06/08/19 at 18:45; Stop 06/08/19 at 19:44; Status UNV Cefazolin Sodium/ Dextrose 50 ml @ 100 mls/hr 1X ONCE IV Last administered on 06/08/19at 20:02; Start 06/08/19 at 20:00; Stop 06/08/19 at 20:29; Status DC Sodium Chloride 1,000 ml @ 1,000 mls/hr 1X ONCE IV Last administered on 06/08/19at 20:02; Start 06/08/19 at 20:00; Stop 06/08/19 at 20:59; Status DC Vancomycin HCl 2 gm/Sodium Chloride 500 ml @ 250 mls/hr 1X ONCE IV Last administered on 06/08/19at 20:43; Start 06/08/19 at 20:00; Stop 06/08/19 at 21:59; Status DC Ondansetron HCl (Zofran) 4 mg PRN Q8HRS PRN IV NAUSEA/VOMITING Last administered on 06/09/19at 11:15; Start 06/08/19 at 20:15; Stop 06/09/19 at 20:14; Status DC Morphine Sulfate (Morphine Sulfate) 4 mg PRN Q6HRS PRN IV PAIN Last ad ministered on 06/09/19at 11:16; Start 06/08/19 at 20:15; Stop 06/09/19 at 20:14; Status DC Cefazolin Sodium/ Dextrose 50 ml @ 100 mls/hr Q8HRS IV Last administered on 06/10/19at 06:36; Start 06/09/19 at 06:00; Stop 06/10/19 at 12:42; Status DC Vancomycin HCl (Vanco Per Pharmacy) 1 each PRN DAILY PRN MC SEE COMMENTS Last administered on 06/10/19at 11:12; Start 06/08/19 at 20:30; Stop 06/10/19 at 12:42; Status DC Vancomycin HCl 1.5 gm/Sodium Chloride 500 ml @ 250 mls/hr Q8H IV Last administered on 06/08/19at 05:00; Start 06/08/19 at 05:00; Stop 06/08/19 at 21:21; Status DC Vancomycin HCl (Vancomycin Trough Level) 1 each 1X ONCE MC Last administered on 06/09/19at 20:30; Start 06/09/19 at 20:30; Stop 06/09/19 at 20:31; Status DC Vancomycin HCl 1.5 gm/Sodium Chloride 500 ml @ 250 mls/hr Q8H IV Last administered on 06/10/19at 04:15; Start 06/09/19 at 05:00; Stop 06/10/19 at 12:42; Status DC Lactobacillus Rhamnosus (Culturelle) 1 cap BID PO Last administered on 06/12/19at 08:56; Start 06/09/19 at 21:00 Heparin Sodium (Porcine) (Heparin Sodium) 5,000 unit Q8HRS SQ Last administered on 06/12/19at 05:55; Start 06/09/19 at 22:00 Furosemide (Lasix) 40 mg DAILY PO Last administered on 06/12/19at 08:56; Start 06/10/19 at 09:00 Potassium Chloride (Klor-Con) 10 meq DAILYWBKFT PO ; Start 06/10/19 at 08:00; Stop 06/09/19 at 16:03; Status DC Potassium Chloride (Klor-Con) 20 meq 1X ONCE PO ; Start 06/09/19 at 15:15; Stop 06/09/19 at 15:59; Status DC Perflutren Protein Type A Microsphe (Optison) 0.66 mg 1X ONCE IV ; Start 06/09/19 at 15:45; Stop 06/09/19 at 15:46; Status DC Perflutren Protein Type A Microsphe (Optison) 0.66 mg STK-MED ONCE IV ; Start 06/09/19 at 15:47; Stop 06/09/19 at 15:47; Status DC Potassium Bicarbonate (Potassium Effervescent Tablet) 20 meq 1X ONCE PO Last administered on 06/09/19at 16:17; Start 06/09/19 at 16:00; Stop 06/09/19 at 16:05; Status DC Potassium Bicarbonate (Potassium Effervescent Tablet) 10 meq DAILY ONCE PO Last administered on 06/10/19at 10:33; Start 06/10/19 at 09:00; Stop 06/10/19 at 09:01; Status DC Simethicone (Gas-X) 40 mg PRN Q4HRS PRN PO GAS / BLOATING Last administered on 06/10/19at 01:14; Start 06/09/19 at 23:45 Daptomycin 1000 mg/Sodium Chloride 50 ml @ 100 mls/hr Q24H IV Last a dministered on 06/11/19at 16:12; Start 06/10/19 at 13:00 Linezolid (Zyvox) 600 mg BID PO Last administered on 06/12/19at 08:56; Start 06/10/19 at 21:00 Piperacillin Sod/ Tazobactam Sod 3.375 gm/Sodium Chloride 50 ml @ 100 mls/hr Q6HRS IV Last administered on 06/12/19at 05:50; Start 06/10/19 at 13:00 Micafungin Sodium 100 mg/Dextrose 100 ml @ 100 mls/hr Q24H IV Last administ ered on 06/11/19at 14:01; Start 06/10/19 at 14:00 Potassium Chloride (Klor-Con) 40 meq 1X ONCE PO Last administered on at 18:08; Start 06/10/19 at 15:30; Stop 06/10/19 at 15:38; Status DC Potassium Chloride (Klor-Con) 20 meq DAILYWBKFT PO Last administered on 06/12/19at 08:56; Start 06/11/19 at 08:00 Hydromorphone HCl (Dilaudid) 1 mg 1X ONCE IV ; Start 06/10/19 at 19:00; Stop 06/10/19 at 19:01; Status Cancel Hydromorphone HCl (Dilaudid) 1 mg PRN Q4HRS PRN IV PAIN Last administered on at 22:44; Start 06/10/19 at 19:00 Oxycodone/ Acetaminophen (Percocet 5/325) 1 tab PRN Q4HRS PRN PO PAIN; Start 06/12/19 at 10:30 Ondansetron HCl (Zofran) 4 mg PRN Q6HRS PRN IVP NAUSEA/VOMITING; Start 06/12/19 at 10:30 Calcium Carbonate/ Glycine (Tums) 500 mg PRN AFTMEALHC PRN PO INDIGESTION; Start 06/12/19 at 10:30 Zolpidem Tartrate (Ambien) 5 mg PRN QHS PRN PO INSOMNIA; Start 06/12/19 at 10:30 Loperamide HCl (Imodium) 2 mg PRN Q15MIN PRN PO DIARRHEA; Start 06/12/19 at 10:30 Active Scripts Active Reported [water pill] Turmeric (Turmeric Root Extract) 538 Mg Capsule 538 Mg PO DAILY Vitals/I & O Vital Sign - Last 24 Hours 06/11/19 06/11/19 06/11/19 06/11/19 14:46 16:47 17:17 19:10 Temp 97.8 99.7 97.8 99.7 Pulse 95 121 Resp 20 20 B/P (MAP) 138/74 (95) 119/82 (94) Pulse Ox 95 90 O2 Delivery Nasal Cannula Room Air Room Air Nasal Cannula O2 Flow Rate 2.0 3.0 06/11/19 06/11/19 06/11/19 06/11/19 20:00 22:44 23:14 23:17 Temp 99.6 99.6 Pulse 98 Resp 16 14 21 B/P (MAP) 150/96 (114) Pulse Ox 90 94 94 O2 Delivery Room Air Room Air Room Air Nasal Cannula O2 Flow Rate 3.0 3.0 3.0 06/12/19 06/12/19 06/12/19 03:07 07:00 08:00 Temp 99.2 99.0 99.2 99.0 Pulse 113 89 Resp 22 18 B/P (MAP) 134/79 (97) 140/87 (104) Pulse Ox 93 95 O2 Delivery Nasal Cannula Nasal Cannula Room Air O2 Flow Rate 3.0 2.5 Intake and Output 06/11/19 06/11/19 06/12/19 15:00 23:00 07:00 Intake Total 650 ml 740 ml 1200 ml Output Total 450 ml 750 ml 800 ml Balance 200 ml -10 ml 400 ml JAGDISH AGUILAR MD Jun 12, 2019 12:06
[2019-06-12] MEDS: HYDROmorphone 2 MG/ML VIAL IV PRN (13:34)
[2019-06-12] MEDS: DAPTOMYCIN IV SCH (14:29)
[2019-06-12] MEDS: NORMAL SALINE IV SCH (14:29)
[2019-06-12 15:00] VITALS: BP 132/84
--- NOTE | 2019-06-12 15:05 | NUR ---
SW following. Chart reviewed, discussed with RN. Pt on dapto, zosyn, micafungin, zyvox. Has wound care. RN advised pt is not ready to discharge at this time. KARUNA will continue to follow.
[2019-06-12] MEDS: MICAFUNGIN 100 MG in IV DEXTROSE 5% 100ML 100 ML IV SCH (15:25)
--- NOTE | 2019-06-12 15:54 | RAD ---
EXAM: Chest, single view. HISTORY: Shortness of breath. COMPARISON: None. FINDINGS: A frontal view of the chest is obtained. There is diffuse right greater than left lung central predominant interstitial infiltrate. This is similar compared to the prior exam. No pleural effusion or pneumothorax is seen. The cardiac silhouette is stable in size. IMPRESSION: Stable diffuse right greater than left lung central predominant interstitial infiltrate. Electronically signed by: Lizette Smith MD (06/12/2019 3:52 PM) [place] [id number]
[2019-06-12 19:00] VITALS: BP 115/42
[2019-06-12 23:00] VITALS: BP 148/84
[2019-06-13] MEDS: PIPERACILLIN/TAZOBACTAM 3.375 GM in IV NORMAL SALINE 50ML 50 ML IV SCH ×4 (00:16→18:11)
[2019-06-13 03:00] VITALS: BP 122/74
[2019-06-13] MEDS: HEPARIN for SUB-Q USE 5,000 UNIT/ML VIAL. SQ SCH ×3 (06:15→20:52)
[2019-06-13 07:00] VITALS: BP 148/96
--- NOTE | 2019-06-13 09:44 | PDOC ---
Infectious Disease Note Subjective Subjective feeling better, able to get up ROS ROS no n/v/d/sob Vital Sign Vital Signs Vital Signs Date Time Temp Pulse Resp B/P (MAP) Pulse Ox O2 Delivery O2 Flow Rate FiO2 06/13/19 07:00 97.9 88 18 148/96 (113) 94 Nasal Cannula 3.0 97.9 Physical Exam PHYSICAL EXAM GENERAL: Propped up in bed, alert, eating and watching TV HEENT: Pupils equally round, reactive. Oral cavity: Pharynx pink and moist. NECK: Supple. LUNGS: Diminished aeration at the bases. Nonlabored. HEART: Distant heart sounds. ABDOMEN: Obese, soft, nontender with bowel sounds present. EXTREMITIES: Chronic venous changes in lower extremities bilaterally. His left leg is still red, but much improved with yellow blister and discharge is gone SKIN: + yeast in the groin area. NEUROLOGIC: Alert and answering questions appropriately. PIV Labs Micro Microbiology 06/08/19 Blood Culture - Preliminary, Resulted NO GROWTH AFTER 3 DAYS ANAEROBIC-AEROBIC CULTURE PENDING ANAEROBIC RES 1 PENDING AEROBIC CULT PENDING AEROBIC RES 1 PENDING GRAM STAIN Final Final report GRAM STAIN RES 1 Final Comment No white blood cells seen. GRAM STAIN RES 2 Final Comment Moderate gram negative rods. Performed at: [facility] [address], [place], [place] [id number] Loss Control Consultant: ANTHONY Andersen MD, Phone: [phone] Objective Assessment Severe cellulitis with large bullae left lower extremitiy Fever Leukocytosis Yeast in groin Transaminits Super morbid obesity Exposure Influenza Chronic heart failure Loose stools Plan Plan of Care Continue zyvox Zosyn Probiotics Monitor WBC, temp and renal function closely CK in am Local wound care f/u cultures AMERICO POPE MD Jun 13, 2019 09:44
[2019-06-13] MEDS: LACTOBACILLUS RHAMNOSUS GG 1 CAPSULE. PO SCH ×2 (10:14→20:40)
[2019-06-13] MEDS: POTASSIUM CHLORIDE 20 MEQ TABLET.ER. PO SCH (10:14)
[2019-06-13] MEDS: FUROSEMIDE 40 MG TABLET. PO SCH (10:15)
[2019-06-13 11:00] VITALS: BP 147/93
--- NOTE | 2019-06-13 11:14 | NUR ---
Zyvox: Spoke with Dr. Anisha Rachel re: pt's zyvox as pt has troubles swallowing pills. He stated we can convert to liquid if available, if not, okay to convert to IV. Spoke with Collette in pharmacy, she stated we do not carry liquid zyvox but she can convert to IV. Will await new order to begin.
--- NOTE | 2019-06-13 11:56 | PDOC ---
PROGRESS NOTES Chief Complaint Chief Complaint Severe cellulitis with large bullae left lower extremitiy Fever resolved Leukocytosis 15 Yeast in groin Transaminits Super morbid obesity BMI 84 - Weight loss pgm /bariatric group appt jun 2019 Exposure Influenza Chronic heart failure Loose stools JASON, undiagnosed History of Present Illness History of Present Illness nocturnal desat is positive - so i left RX onc hollis 2 L NC at day time, 1 LNC at night NEeds OP sleep study, claims tried cpap and did not like it (sleep study request slip on chart) LEgs better ON potty for stools Request kcl liq or IV bec does notw ant pills Also requested IV onstead of PO zyvox from ID PLAN: Shift to KCl liquid ( k is 3.2 on PO lasix qD) FF up cxs Iv zyvox NEeds polysomnogram as OP HOme O2 rx on chart Add PT/OT might need rehab as epr RN sup he needs to lose weight and tells me he has an appt Jun 2019 with bariatric team Vitals Vitals Vital Signs Date Time Temp Pulse Resp B/P (MAP) Pulse Ox O2 Delivery O2 Flow Rate FiO2 06/13/19 08:00 Nasal Cannula 2.0 06/13/19 07:00 97.9 88 18 148/96 (113) 94 97.9 Physical Exam Physical Exam GENERAL: Propped up in bed, alert, eating and watching TV HEENT: Pupils equally round, reactive. Oral cavity: Pharynx pink and moist. NECK: Supple. LUNGS: Diminished aeration at the bases. Nonlabored. HEART: Distant heart sounds. ABDOMEN: Obese, soft, nontender with bowel sounds present. EXTREMITIES: Chronic venous changes in lower extremities bilaterally. His left leg is still red, but much improved with yellow blister and discharge is gone SKIN: + yeast in the groin area. NEUROLOGIC: Alert and answering questions appropriately. PIV General: Alert, Oriented X3, Cooperative, No acute distress Heart: Regular rate, Other (distant heart sounds) Lungs: Clear Abdomen: Normal bowel sounds, Soft, No tenderness Extremities: No cyanosis, Other (chronic lymphedema with LLE cellulitis) Skin: Other (LE venous dermatitis; blisters to left calf dark erythema from below knee to ankle with pitting edema) Review of Systems Review of Systems neg 14 pt reveiewed with him Assessment and Plan Assessmemt and Plan Problems Medical Problems: (1) Left leg cellulitis Status: Acute Comment Review of Relevant I have reviewed the following items beny (where applicable) has been applied. Labs Laboratory Tests Test 06/11/19 12:35 06/12/19 03:35 White Blood Count 15.3 x10^3/uL (4.0-11.0) Red Blood Count 4.81 x10^6/uL (4.30-5.70) Hemoglobin 13.2 g/dL (13.0-17.5) Hematocrit 41.0 % (39.0-53.0) Mean Corpuscular Volume 85 fL (79-100) Mean Corpuscular Hemoglobin 27 pg (25-35) Mean Corpuscular Hemoglobin Concent 32 g/dL (31-37) Red Cell Distribution Width 15.2 % (11.5-14.5) Platelet Count 242 x10^3/uL (140-400) Neutrophils (%) (Auto) 84 % (31-73) Lymphocytes (%) (Auto) 8 % (24-48) Monocytes (%) (Auto) 8 % (0-9) Eosinophils (%) (Auto) 0 % (0-3) Basophils (%) (Auto) 0 % (0-3) Neutrophils # (Auto) 12.9 x10^3/uL (1.8-7.7) Lymphocytes # (Auto) 1.2 x10^3/uL (1.0-4.8) Monocytes # (Auto) 1.2 x10^3/uL (0.0-1.1) Eosinophils # (Auto) 0.0 x10^3/uL (0.0-0.7) Basophils # (Auto) 0.0 x10^3/uL (0.0-0.2) Sodium Level 133 mmol/L (136-145) Potassium Level 3.5 mmol/L (3.5-5.1) Chloride Level 95 mmol/L (98-107) Carbon Dioxide Level 32 mmol/L (21-32) Anion Gap 6 (6-14) Blood Urea Nitrogen 15 mg/dL (8-26) Creatinine 1.2 mg/dL (0.7-1.3) Estimated GFR (Cockcroft-Gault) 64.1 BUN/Creatinine Ratio 13 (6-20) Glucose Level 128 mg/dL (70-99) Calcium Level 8.7 mg/dL (8.5-10.1) Total Bilirubin 0.6 mg/dL (0.2-1.0) Aspartate Amino Transf (AST/SGOT) 124 U/L (15-37) Alanine Aminotransferase (ALT/SGPT) 113 U/L (16-63) Alkaline Phosphatase 106 U/L (46-116) Total Protein 7.4 g/dL (6.4-8.2) Albumin 2.0 g/dL (3.4-5.0) Albumin/Globulin Ratio 0.4 (1.0-1.7) Creatine Kinase 261 U/L (39-308) Microbiology 06/10/19 Anaerobic/Aerobic Culture, Resulted Pending 06/10/19 Anaerobic Culture Result 1 (MAJOR), Resulted Pending 06/10/19 Aerobic Culture, Resulted Pending 06/10/19 Aerobic Culture Result 1 (MAJOR), Resulted Pending 06/10/19 Gram Stain - Final, Resulted 06/10/19 Gram Stain Result 1 (MAJOR) - Final, Resulted 06/10/19 Gram Stain Result 2 (MAJOR) - Final, Resulted 06/08/19 Blood Culture - Preliminary, Resulted NO GROWTH AFTER 4 DAYS Medications Current Medications Ibuprofen (Motrin) 800 mg 1X ONCE PO Last administered on 06/08/19at 19:56; Start 06/08/19 at 20:00; Stop 06/08/19 at 20:01; Status DC Acetaminophen (Tylenol) 1,000 mg 1X ONCE PO Last administered on 06/08/19at 19:56; Start 06/08/19 at 20:00; Stop 06/08/19 at 20:01; Status DC Vancomycin HCl 250 ml @ 250 mls/hr 1X ONCE IV ; Start 06/08/19 at 18:45; Stop 06/08/19 at 19:44; Status UNV Cefazolin Sodium/ Dextrose 50 ml @ 100 mls/hr 1X ONCE IV Last administered on 06/08/19at 20:02; Start 06/08/19 at 20:00; Stop 06/08/19 at 20:29; Status DC Sodium Chloride 1,000 ml @ 1,000 mls/hr 1X ONCE IV Last administered on 06/08/19at 20:02; Start 06/08/19 at 20:00; Stop 06/08/19 at 20:59; Status DC Vancomycin HCl 2 gm/Sodium Chloride 500 ml @ 250 mls/hr 1X ONCE IV Last administered on 06/08/19at 20:43; Start 06/08/19 at 20:00; Stop 06/08/19 at 21:59; Status DC Ondansetron HCl (Zofran) 4 mg PRN Q8HRS PRN IV NAUSEA/VOMITING Last administered on 06/09/19at 11:15; Start 06/08/19 at 20:15; Stop 06/09/19 at 20:14; Status DC Morphine Sulfate (Morphine Sulfate) 4 mg PRN Q6HRS PRN IV PAIN Last administered on 06/09/19at 11:16; Start 06/08/19 at 20:15; Stop 06/09/19 at 20:14; Status DC Cefazolin Sodium/ Dextrose 50 ml @ 100 mls/hr Q8HRS IV Last administered on 06/10/19at 06:36; Start 06/09/19 at 06:00; Stop 06/10/19 at 12:42; Status DC Vancomycin HCl (Vanco Per Pharmacy) 1 each PRN DAILY PRN MC SEE COMMENTS Last administered on 06/10/19at 11:12; Start 06/08/19 at 20:30; Stop 06/10/19 at 12:42; Status DC Vancomycin HCl 1.5 gm/Sodium Chloride 500 ml @ 250 mls/hr Q8H IV Last administered on 06/08/19at 05:00; Start 06/08/19 at 05:00; Stop 06/08/19 at 2 1:21; Status DC Vancomycin HCl (Vancomycin Trough Level) 1 each 1X ONCE MC Last administered on 06/09/19at 20:30; Start 06/09/19 at 20:30; Stop 06/09/19 at 20:31; Status DC Vancomycin HCl 1.5 gm/Sodium Chloride 500 ml @ 250 mls/hr Q8H IV Last admin istered on 06/10/19at 04:15; Start 06/09/19 at 05:00; Stop 06/10/19 at 12:42; Status DC Lactobacillus Rhamnosus (Culturelle) 1 cap BID PO Last administered on 06/13/19at 10:14; Start 06/09/19 at 21:00 Heparin Sodium (Porcine) (Heparin Sodium) 5,000 unit Q8HRS SQ Last administered on 06/13/19at 06:15; Start 06/09/19 at 22:00 Furosemide (Lasix) 40 mg DAILY PO Last administered on 06/13/19at 10:15; Start 06/10/19 at 09:00 Potassium Chloride (Klor-Con) 10 meq DAILYWBKFT PO ; Start 06/10/19 at 08:00; Stop 06/09/19 at 16:03; Status DC Potassium Chloride (Klor-Con) 20 meq 1X ONCE PO ; Start 06/09/19 at 15:15; Stop 06/09/19 at 15:59; Status DC Perflutren Protein Type A Microsphe (Optison) 0.66 mg 1X ONCE IV ; Start 06/09/19 at 15:45; Stop 06/09/19 at 15:46; Status DC Perflutren Protein Type A Microsphe (Optison) 0.66 mg STK-MED ONCE IV ; Start 06/09/19 at 15:47; Stop 06/09/19 at 15:47; Status DC Potassium Bicarbonate (Potassium Effervescent Tablet) 20 meq 1X ONCE PO Last administered on 06/09/19at 16:17; Start 06/09/19 at 16:00; Stop 06/09/19 at 16:05; Status DC Potassium Bicarbonate (Potassium Effervescent Tablet) 10 meq DAILY ONCE PO Last administered on 06/10/19at 10:33; Start 06/10/19 at 09:00; Stop 06/10/19 at 09:01; Status DC Simethicone (Gas-X) 40 mg PRN Q4HRS PRN PO GAS / BLOATING Last administered on 06/10/19at 01:14; Start 06/09/19 at 23:45 Daptomycin 1000 mg/Sodium Chloride 50 ml @ 100 mls/hr Q24H IV Last administered on 06/12/19at 14:29; Start 06/10/19 at 13:00; Stop 06/13/19 at 10:52; Status DC Linezolid (Zyvox) 600 mg BID PO Last administered on 06/12/19at 20:56; Start 06/10/19 at 21:00; Stop 06/13/19 at 11:13; Status DC Piperacillin Sod/ Tazobactam Sod 3.375 gm/Sodium Chloride 50 ml @ 100 mls/hr Q6HRS IV Last administered on 06/13/19at 06:14; Start 06/10/19 at 13:00 Micafungin Sodium 100 mg/Dextrose 100 ml @ 100 mls/hr Q24H IV Last administered on 06/12/19at 15:25; Start 06/10/19 at 14:00; Stop 06/13/19 at 10:52; Status DC Potassium Chloride (Klor-Con) 40 meq 1X ONCE PO Last administered on 06/10/19at 18:08; Start 06/10/19 at 15:30; Stop 06/10/19 at 15:38; Status DC Potassium Chloride (Klor-Con) 20 meq DAILYWBKFT PO Last administered on 06/13/19at 10:14; Start 06/11/19 at 08:00 Hydromorphone HCl (Dilaudid) 1 mg 1X ONCE IV ; Start 06/10/19 at 19:00; Stop 06/10/19 at 19:01; Status Cancel Hydromorphone HCl (Dilaudid) 1 mg PRN Q4HRS PRN IV PAIN Last administered on 06/12/19at 13:34; Start 06/10/19 at 19:00 Oxycodone/ Acetaminophen (Percocet 5/325) 1 tab PRN Q4HRS PRN PO PAIN; Start 06/12/19 at 10:30 Ondansetron HCl (Zofran) 4 mg PRN Q6HRS PRN IVP NAUSEA/VOMITING; Start 06/12/19 at 10:30 Calcium Carbonate/ Glycine (Tums) 500 mg PRN AFTMEALHC PRN PO INDIGESTION; Start 06/12/19 at 10:30 Zolpidem Tartrate (Ambien) 5 mg PRN QHS PRN PO INSOMNIA; Start 06/12/19 at 10:30 Loperamide HCl (Imodium) 2 mg PRN Q15MIN PRN PO DIARRHEA; Start 06/12/19 at 10:30 Linezolid/Dextrose 300 ml @ 300 mls/hr Q12HR IV ; Start 06/13/19 at 21:00 Active Scripts Active Reported [water pill] Turmeric (Turmeric Root Extract) 538 Mg Capsule 538 Mg PO DAILY Vitals/I & O Vital Sign - Last 24 Hours 12/16/19 12/16/19 12/16/19 12/16/19 13:34 14:34 15:00 19:00 Temp 98.4 98.4 Pulse 88 92 Resp 18 20 B/P (MAP) 132/84 (100) 115/42 (66) Pulse Ox 95 95 O2 Delivery Room Air Room Air Room Air Nasal Cannula O2 Flow Rate 3.0 3.0 2.0 06/12/19 06/12/19 06/13/19 06/13/19 19:30 23:00 03:00 07:00 Temp 98.0 98.0 97.9 98.0 98.0 97.9 Pulse 88 80 88 Resp 20 20 18 B/P (MAP) 148/84 (105) 122/74 (90) 148/96 (113) Pulse Ox 95 97 94 O2 Delivery Room Air Nasal Cannula Nasal Cannula Nasal Cannula O2 Flow Rate 2.0 2.0 3.0 06/13/19 08:00 O2 Delivery Nasal Cannula O2 Flow Rate 2.0 Intake and Output 06/12/19 06/12/19 06/13/19 15:00 23:00 07:00 Intake Total 300 ml Output Total 600 ml Balance -300 ml JAGDISH AGUILAR MD Jun 13, 2019 11:56
[2019-06-13] MEDS: ONDANSETRON PF 4 MG/2 ML VIAL. IVP PRN (14:09)
[2019-06-13 15:00] VITALS: BP 144/86
[2019-06-13] MEDS: guaiFENesin DM 200MG/20MG 10 ML SYRUP PO PRN (18:11)
[2019-06-13] MEDS: HYDROmorphone 2 MG/ML VIAL IV PRN (18:12)
[2019-06-13 19:00] VITALS: BP 152/75
[2019-06-13] MEDS: POTASSIUM BICARB 20 MEQ EFFERVESCENT TABLET. PO SCH (20:40)
[2019-06-13 23:00] VITALS: BP 154/45
[2019-06-14] MEDS: PIPERACILLIN/TAZOBACTAM 3.375 GM in IV NORMAL SALINE 50ML 50 ML IV SCH ×5 (00:21→23:30)
[2019-06-14] MEDS: guaiFENesin DM 200MG/20MG 10 ML SYRUP PO PRN ×2 (01:06→18:24)
[2019-06-14 03:00] VITALS: BP 143/50
[2019-06-14 04:16] LABS: BASO # 0.1 x10^3/uL (0.0-0.2); BASO % 0 % (0-3); EOS # 0.2 x10^3/uL (0.0-0.7); EOS % 1 % (0-3); HEMATOCRIT 41.8 % (39.0-53.0); HEMOGLOBIN 13.4 g/dL (13.0-17.5); LYMPH # 1.7 x10^3/uL (1.0-4.8); LYMPH % 10 % (24-48); MEAN CORPUSCULAR HEMOGLOBIN 27 pg (25-35); MEAN CORPUSCULAR HGB CONC 32 g/dL (31-37); MEAN CORPUSCULAR VOLUME 85 fL (79-100); MONO # 1.4 x10^3/uL (0.0-1.1); MONO % 9 % (0-9); NEUT % 80 % (31-73); PLATELET COUNT 352 x10^3/uL (140-400); RED CELL DISTRIBUTION WIDTH 15.4 % (11.5-14.5); WHITE BLOOD COUNT 16.3 x10^3/uL (4.0-11.0)
[2019-06-14 04:29] LABS: CALCIUM 8.9 mg/dL (8.5-10.1); CREATININE 1.2 mg/dL (0.7-1.3); GFR 64.1; POTASSIUM 3.5 mmol/L (3.5-5.1)
[2019-06-14] MEDS: HEPARIN for SUB-Q USE 5,000 UNIT/ML VIAL. SQ SCH ×3 (06:30→22:17)
[2019-06-14 07:00] VITALS: BP 152/94
[2019-06-14] MEDS: LACTOBACILLUS RHAMNOSUS GG 1 CAPSULE. PO SCH ×2 (09:37→21:00)
[2019-06-14] MEDS: FUROSEMIDE 40 MG TABLET. PO SCH (09:38)
[2019-06-14] MEDS: POTASSIUM BICARB 20 MEQ EFFERVESCENT TABLET. PO SCH ×2 (09:38→21:00)
--- NOTE | 2019-06-14 09:47 | PDOC ---
PROGRESS NOTES Chief Complaint Chief Complaint Severe cellulitis with large bullae left lower extremitiy Fever resolved Leukocytosis 15 Yeast in groin Transaminits Super morbid obesity BMI 84 - Weight loss pgm /bariatric group appt jun 2019 Exposure Influenza Chronic heart failure Loose stools JASON, undiagnosed History of Present Illness History of Present Illness Asleep i did not awaken Still on IV abx per ID Cx cooking EARLIER ENTRY: nocturnal desat is positive - so i left RX onc hollis 2 L NC at day time, 1 LNC at night NEeds OP sleep study, claims tried cpap and did not like it (sleep study request slip on chart) LEgs better Request kcl liq or IV bec does not want pills Also requested IV instead of PO zyvox from ID PLAN: I decided to keep lasix PO since legs are getting better WIll dc on PO abx once shifted by ID - once cx final out NEeds to lose weight - has appt Jun bariatric team HOme per PTeval NEeds polysomnogram as OP HOme O2 rx on chart Vitals Vitals Vital Signs Date Time Temp Pulse Resp B/P (MAP) Pulse Ox O2 Delivery O2 Flow Rate FiO2 06/14/19 07:00 98.0 91 18 152/94 (113) 96 Nasal Cannula 3.0 98.0 Physical Exam Physical Exam GENERAL: Propped up in bed, alert, eating and watching TV HEENT: Pupils equally round, reactive. Oral cavity: Pharynx pink and moist. NECK: Supple. LUNGS: Diminished aeration at the bases. Nonlabored. HEART: Distant heart sounds. ABDOMEN: Obese, soft, nontender with bowel sounds present. EXTREMITIES: Chronic venous changes in lower extremities bilaterally. His left leg is still red, but much improved with yellow blister and discharge is gone SKIN: + yeast in the groin area. NEUROLOGIC: Alert and answering questions appropriately. PIV General: Alert, Oriented X3, Cooperative, No acute distress Heart: Regular rate, Other (distant heart sounds) Lungs: Clear Abdomen: Normal bowel sounds, Soft, No tenderness Extremities: No cyanosis, Other (chronic lymphedema with LLE cellulitis) Skin: Other (LE venous dermatitis; blisters to left calf dark erythema from below knee to ankle with pitting edema) Labs LABS Laboratory Tests Test 06/14/19 03:25 White Blood Count 16.3 x10^3/uL (4.0-11.0) Red Blood Count 4.90 x10^6/uL (4.30-5.70) Hemoglobin 13.4 g/dL (13.0-17.5) Hematocrit 41.8 % (39.0-53.0) Mean Corpuscular Volume 85 fL (79-100) Mean Corpuscular Hemoglobin 27 pg (25-35) Mean Corpuscular Hemoglobin Concent 32 g/dL (31-37) Red Cell Distribution Width 15.4 % (11.5-14.5) Platelet Count 352 x10^3/uL (140-400) Neutrophils (%) (Auto) 80 % (31-73) Lymphocytes (%) (Auto) 10 % (24-48) Monocytes (%) (Auto) 9 % (0-9) Eosinophils (%) (Auto) 1 % (0-3) Basophils (%) (Auto) 0 % (0-3) Neutrophils # (Auto) 13.0 x10^3/uL (1.8-7.7) Lymphocytes # (Auto) 1.7 x10^3/uL (1.0-4.8) Monocytes # (Auto) 1.4 x10^3/uL (0.0-1.1) Eosinophils # (Auto) 0.2 x10^3/uL (0.0-0.7) Basophils # (Auto) 0.1 x10^3/uL (0.0-0.2) Erythrocyte Sedimentation Rate 50 (0-15) Sodium Level 136 mmol/L (136-145) Potassium Level 3.5 mmol/L (3.5-5.1) Chloride Level 100 mmol/L (98-107) Carbon Dioxide Level 31 mmol/L (21-32) Anion Gap 5 (6-14) Blood Urea Nitrogen 18 mg/dL (8-26) Creatinine 1.2 mg/dL (0.7-1.3) Estimated GFR (Cockcroft-Gault) 64.1 Glucose Level 147 mg/dL (70-99) Calcium Level 8.9 mg/dL (8.5-10.1) Review of Systems Review of Systems asleep i did not awaken Assessment and Plan Assessmemt and Plan Problems Medical Problems: (1) Left leg cellulitis Status: Acute Comment Review of Relevant I have reviewed the following items beny (where applicable) has been applied. Labs Laboratory Tests Test 06/14/19 03:25 White Blood Count 16.3 x10^3/uL (4.0-11.0) Red Blood Count 4.90 x10^6/uL (4.30-5.70) Hemoglobin 13.4 g/dL (13.0-17.5) Hematocrit 41.8 % (39.0-53.0) Mean Corpuscular Volume 85 fL (79-100) Mean Corpuscular Hemoglobin 27 pg (25-35) Mean Corpuscular Hemoglobin Concent 32 g/dL (31-37) Red Cell Distribution Width 15.4 % (11.5-14.5) Platelet Count 352 x10^3/uL (140-400) Neutrophils (%) (Auto) 80 % (31-73) Lymphocytes (%) (Auto) 10 % (24-48) Monocytes (%) (Auto) 9 % (0-9) Eosinophils (%) (Auto) 1 % (0-3) Basophils (%) (Auto) 0 % (0-3) Neutrophils # (Auto) 13.0 x10^3/uL (1.8-7.7) Lymphocytes # (Auto) 1.7 x10^3/uL (1.0-4.8) Monocytes # (Auto) 1.4 x10^3/uL (0.0-1.1) Eosinophils # (Auto) 0.2 x10^3/uL (0.0-0.7) Basophils # (Auto) 0.1 x10^3/uL (0.0-0.2) Erythrocyte Sedimentation Rate 50 (0-15) Sodium Level 136 mmol/L (136-145) Potassium Level 3.5 mmol/L (3.5-5.1) Chloride Level 100 mmol/L (98-107) Carbon Dioxide Level 31 mmol/L (21-32) Anion Gap 5 (6-14) Blood Urea Nitrogen 18 mg/dL (8-26) Creatinine 1.2 mg/dL (0.7-1.3) Estimated GFR (Cockcroft-Gault) 64.1 Glucose Level 147 mg/dL (70-99) Calcium Level 8.9 mg/dL (8.5-10.1) Laboratory Tests Test 06/14/19 03:25 White Blood Count 16.3 x10^3/uL (4.0-11.0) Red Blood Count 4.90 x10^6/uL (4.30-5.70) Hemoglobin 13.4 g/dL (13.0-17.5) Hematocrit 41.8 % (39.0-53.0) Mean Corpuscular Volume 85 fL (79-100) Mean Corpuscular Hemoglobin 27 pg (25-35) Mean Corpuscular Hemoglobin Concent 32 g/dL (31-37) Red Cell Distribution Width 15.4 % (11.5-14.5) Platelet Count 352 x10^3/uL (140-400) Neutrophils (%) (Auto) 80 % (31-73) Lymphocytes (%) (Auto) 10 % (24-48) Monocytes (%) (Auto) 9 % (0-9) Eosinophils (%) (Auto) 1 % (0-3) Basophils (%) (Auto) 0 % (0-3) Neutrophils # (Auto) 13.0 x10^3/uL (1.8-7.7) Lymphocytes # (Auto) 1.7 x10^3/uL (1.0-4.8) Monocytes # (Auto) 1.4 x10^3/uL (0.0-1.1) Eosinophils # (Auto) 0.2 x10^3/uL (0.0-0.7) Basophils # (Auto) 0.1 x10^3/uL (0.0-0.2) Erythrocyte Sedimentation Rate 50 (0-15) Sodium Level 136 mmol/L (136-145) Potassium Level 3.5 mmol/L (3.5-5.1) Chloride Level 100 mmol/L (98-107) Carbon Dioxide Level 31 mmol/L (21-32) Anion Gap 5 (6-14) Blood Urea Nitrogen 18 mg/dL (8-26) Creatinine 1.2 mg/dL (0.7-1.3) Estimated GFR (Cockcroft-Gault) 64.1 Glucose Level 147 mg/dL (70-99) Calcium Level 8.9 mg/dL (8.5-10.1) Microbiology 06/12/19 Anaerobic/Aerobic Culture, Resulted Pending 06/12/19 Anaerobic Culture Result 1 (MAJOR), Resulted Pending 06/12/19 Aerobic Culture, Resulted Pending 06/12/19 Aerobic Culture Result 1 (MAJOR), Resulted Pending 06/12/19 Gram Stain - Final, Resulted 06/12/19 Gram Stain Result 1 (MAJOR) - Final, Resulted 06/12/19 Gram Stain Result 2 (MAJOR) - Final, Resulted 06/08/19 Blood Culture - Final, Complete NO GROWTH AFTER 5 DAYS Medications Current Medications Ibuprofen (Motrin) 800 mg 1X ONCE PO Last administered on 06/08/19 19:56; Start 06/08/19 at 20:00; Stop 06/08/19 at 20:01; Status DC Acetaminophen (Tylenol) 1,000 mg 1X ONCE PO Last administered on 06/08/19at 19:56; Start 06/08/19 at 20:00; Stop 06/08/19 at 20:01; Status DC Vancomycin HCl 250 ml @ 250 mls/hr 1X ONCE IV ; Start 06/08/19 at 18:45; Stop 06/08/19 at 19:44; Status UNV Cefazolin Sodium/ Dextrose 50 ml @ 100 mls/hr 1X ONCE IV Last administered on 06/08/19at 20:02; Start 06/08/19 at 20:00; Stop 06/08/19 at 20:29; Status DC Sodium Chloride 1,000 ml @ 1,000 mls/hr 1X ONCE IV Last administered on 06/08/19at 20:02; Start 06/08/19 at 20:00; Stop 06/08/19 at 20:59; Status DC Vancomycin HCl 2 gm/Sodium Chloride 500 ml @ 250 mls/hr 1X ONCE IV Last administered on 06/08/19at 20:43; Start 06/08/19 at 20:00; Stop 06/08/19 at 21:59; Status DC Ondansetron HCl (Zofran) 4 mg PRN Q8HRS PRN IV NAUSEA/VOMITING Last administered on 06/09/19at 11:15; Start 06/08/19 at 20:15; Stop 06/09/19 at 20:14; Status DC Morphine Sulfate (Morphine Sulfate) 4 mg PRN Q6HRS PRN IV PAIN Last administered on 06/09/19at 11:16; Start 06/08/19 at 20:15; Stop 06/09/19 at 20:14; Status DC Cefazolin Sodium/ Dextrose 50 ml @ 100 mls/hr Q8HRS IV Last administered on 06/10/19at 06:36; Start 06/09/19 at 06:00; Stop 06/10/19 at 12:42; Status DC Vancomycin HCl (Vanco Per Pharmacy) 1 each PRN DAILY PRN MC SEE COMMENTS Last administered on 06/10/19at 11:12; Start 06/08/19 at 20:30; Stop 06/10/19 at 12:42; Status DC Vancomycin HCl 1.5 gm/Sodium Chloride 500 ml @ 250 mls/hr Q8H IV Last administered on 06/08/19at 05:00; Start 06/08/19 at 05:00; Stop 06/08/19 at 2 1:21; Status DC Vancomycin HCl (Vancomycin Trough Level) 1 each 1X ONCE MC Last administered on 06/09/19at 20:30; Start 06/09/19 at 20:30; Stop 06/09/19 at 20:31; Status DC Vancomycin HCl 1.5 gm/Sodium Chloride 500 ml @ 250 mls/hr Q8H IV Last admin istered on 06/10/19at 04:15; Start 06/09/19 at 05:00; Stop 06/10/19 at 12:42; Status DC Lactobacillus Rhamnosus (Culturelle) 1 cap BID PO Last administered on 06/14/19at 09:37; Start 06/09/19 at 21:00 Heparin Sodium (Porcine) (Heparin Sodium) 5,000 unit Q8HRS SQ Last administered on 06/14/19at 06:30; Start 06/09/19 at 22:00 Furosemide (Lasix) 40 mg DAILY PO Last administered on 06/14/19at 09:38; Start 06/10/19 at 09:00 Potassium Chloride (Klor-Con) 10 meq DAILYWBKFT PO ; Start 06/10/19 at 08:00; Stop 06/09/19 at 16:03; Status DC Potassium Chloride (Klor-Con) 20 meq 1X ONCE PO ; Start 06/09/19 at 15:15; Stop 06/09/19 at 15:59; Status DC Perflutren Protein Type A Microsphe (Optison) 0.66 mg 1X ONCE IV ; Start 06/09/19 at 15:45; Stop 06/09/19 at 15:46; Status DC Perflutren Protein Type A Microsphe (Optison) 0.66 mg STK-MED ONCE IV ; Start 06/09/19 at 15:47; Stop 06/09/19 at 15:47; Status DC Potassium Bicarbonate (Potassium Effervescent Tablet) 20 meq 1X ONCE PO Last administered on 06/09/19at 16:17; Start 06/09/19 at 16:00; Stop 06/09/19 at 16:05; Status DC Potassium Bicarbonate (Potassium Effervescent Tablet) 10 meq DAILY ONCE PO Last administered on 06/10/19at 10:33; Start 06/10/19 at 09:00; Stop 06/10/19 at 09:01; Status DC Simethicone (Gas-X) 40 mg PRN Q4HRS PRN PO GAS / BLOATING Last administered on 06/10/19at 01:14; Start 06/09/19 at 23:45 Daptomycin 1000 mg/Sodium Chloride 50 ml @ 100 mls/hr Q24H IV Last administered on 06/12/19at 14:29; Start 06/10/19 at 13:00; Stop 06/13/19 at 10:52; Status DC Linezolid (Zyvox) 600 mg BID PO Last administered on 06/12/19at 20:56; Start 06/10/19 at 21:00; Stop 06/13/19 at 11:13; Status DC Piperacillin Sod/ Tazobactam Sod 3.375 gm/Sodium Chloride 50 ml @ 100 mls/hr Q6HRS IV Last administered on 06/14/19at 06:29; Start 06/10/19 at 13:00 Micafungin Sodium 100 mg/Dextrose 100 ml @ 100 mls/hr Q24H IV Last administered on 06/12/19at 15:25; Start 06/10/19 at 14:00; Stop 06/13/19 at 10:52; Status DC Potassium Chloride (Klor-Con) 40 meq 1X ONCE PO Last administered on 06/10/19at 18:08; Start 06/10/19 at 15:30; Stop 06/10/19 at 15:38; Status DC Potassium Chloride (Klor-Con) 20 meq DAILYWBKFT PO Last administered on 06/13/19at 10:14; Start 06/11/19 at 08:00; Stop 06/13/19 at 11:52; Status DC Hydromorphone HCl (Dilaudid) 1 mg 1X ONCE IV ; Start 06/10/19 at 19:00; Stop 06/10/19 at 19:01; Status Cancel Hydromorphone HCl (Dilaudid) 1 mg PRN Q4HRS PRN IV PAIN Last administered on 06/13/19at 18:12; Start 06/10/19 at 19:00 Oxycodone/ Acetaminophen (Percocet 5/325) 1 tab PRN Q4HRS PRN PO PAIN; Start 06/12/19 at 10:30 Ondansetron HCl (Zofran) 4 mg PRN Q6HRS PRN IVP NAUSEA/VOMITING Last administered on 06/13/19at 14:09; Start 06/12/19 at 10:30 Calcium Carbonate/ Glycine (Tums) 500 mg PRN AFTMEALHC PRN PO INDIGESTION; Start 06/12/19 at 10:30 Zolpidem Tartrate (Ambien) 5 mg PRN QHS PRN PO INSOMNIA Last administered on 06/13/19at 22:20; Start 06/12/19 at 10:30 Loperamide HCl (Imodium) 2 mg PRN Q15MIN PRN PO DIARRHEA; Start 06/12/19 at 10:30 Linezolid/Dextrose 300 ml @ 300 mls/hr Q12HR IV Last administered on 06/14/19at 09:37; Start 06/13/19 at 21:00 Potassium Bicarbonate (Potassium Effervescent Tablet) 20 meq BID PO Last administered on 06/14/19at 09:38; Start 06/13/19 at 21:00 Guaifenesin (Robitussin Dm) 10 ml PRN Q6HRS PRN PO COUGH Last administered on 06/14/19at 01:06; Start 06/13/19 at 18:00 Active Scripts Active Reported [water pill] Turmeric (Turmeric Root Extract) 538 Mg Capsule 538 Mg PO DAILY Vitals/I & O Vital Sign - Last 24 Hours 06/13/19 06/13/19 06/13/19 06/13/19 11:00 15:00 18:12 18:42 Temp 98.2 97.9 98.2 97.9 Pulse 86 94 Resp 18 18 B/P (MAP) 147/93 (111) 144/86 (105) Pulse Ox 92 94 O2 Delivery Nasal Cannula Nasal Cannula Nasal Cannula Nasal Cannula O2 Flow Rate 3.0 3.0 3.0 3.0 06/13/19 06/13/19 06/13/19 06/14/19 19:00 20:00 23:00 03:00 Temp 97.7 97.5 97.9 97.7 97.5 97.9 Pulse 91 90 87 Resp 18 18 18 B/P (MAP) 152/75 (100) 154/45 (81) 143/50 (81) Pulse Ox 93 93 94 O2 Delivery Nasal Cannula Nasal Cannula Nasal Cannula Nasal Cannula O2 Flow Rate 3.0 2.0 3.0 3.0 06/14/19 07:00 Temp 98.0 98.0 Pulse 91 Resp 18 B/P (MAP) 152/94 (113) Pulse Ox 96 O2 Delivery Nasal Cannula O2 Flow Rate 3.0 Intake and Output 06/13/19 06/13/19 06/14/19 15:00 23:00 07:00 Intake Total 300 ml Output Total 300 ml 300 ml 550 ml Balance -300 ml -300 ml -250 ml JAGDISH AGUILAR MD Jun 14, 2019 09:47
--- NOTE | 2019-06-14 10:30 | PDOC ---
Infectious Disease Note Subjective Subjective feeling better, able to get up ROS ROS no n/v/d/ Vital Sign Vital Signs Vital Signs Date Time Temp Pulse Resp B/P (MAP) Pulse Ox O2 Delivery O2 Flow Rate FiO2 06/14/19 07:00 98.0 91 18 152/94 (113) 96 Nasal Cannula 3.0 98.0 Physical Exam PHYSICAL EXAM GENERAL: Propped up in bed, alert, eating and watching TV HEENT: Pupils equally round, reactive. Oral cavity: Pharynx pink and moist. NECK: Supple. LUNGS: Diminished aeration at the bases. Nonlabored. HEART: Distant heart sounds. ABDOMEN: Obese, soft, nontender with bowel sounds present. EXTREMITIES: Chronic venous changes in lower extremities bilaterally. His left leg is still red, but much improved with yellow blister and discharge is gone SKIN: + yeast in the groin area. NEUROLOGIC: Alert and answering questions appropriately. PIV Labs Lab Laboratory Tests Test 06/14/19 03:25 White Blood Count 16.3 x10^3/uL (4.0-11.0) Red Blood Count 4.90 x10^6/uL (4.30-5.70) Hemoglobin 13.4 g/dL (13.0-17.5) Hematocrit 41.8 % (39.0-53.0) Mean Corpuscular Volume 85 fL (79-100) Mean Corpuscular Hemoglobin 27 pg (25-35) Mean Corpuscular Hemoglobin Concent 32 g/dL (31-37) Red Cell Distribution Width 15.4 % (11.5-14.5) Platelet Count 352 x10^3/uL (140-400) Neutrophils (%) (Auto) 80 % (31-73) Lymphocytes (%) (Auto) 10 % (24-48) Monocytes (%) (Auto) 9 % (0-9) Eosinophils (%) (Auto) 1 % (0-3) Basophils (%) (Auto) 0 % (0-3) Neutrophils # (Auto) 13.0 x10^3/uL (1.8-7.7) Lymphocytes # (Auto) 1.7 x10^3/uL (1.0-4.8) Monocytes # (Auto) 1.4 x10^3/uL (0.0-1.1) Eosinophils # (Auto) 0.2 x10^3/uL (0.0-0.7) Basophils # (Auto) 0.1 x10^3/uL (0.0-0.2) Erythrocyte Sedimentation Rate 50 (0-15) Sodium Level 136 mmol/L (136-145) Potassium Level 3.5 mmol/L (3.5-5.1) Chloride Level 100 mmol/L (98-107) Carbon Dioxide Level 31 mmol/L (21-32) Anion Gap 5 (6-14) Blood Urea Nitrogen 18 mg/dL (8-26) Creatinine 1.2 mg/dL (0.7-1.3) Estimated GFR (Cockcroft-Gault) 64.1 Glucose Level 147 mg/dL (70-99) Calcium Level 8.9 mg/dL (8.5-10.1) Objective Assessment Severe cellulitis with large bullae left lower extremitiy Fever Leukocytosis Yeast in groin Transaminits Super morbid obesity Exposure Influenza Chronic heart failure Loose stools Plan Plan of Care ROBIC RES 1 Final Gram negative rods Providencia rettgeri 4+ AEROBIC RES 2 Final Comment Beta hemolytic Streptococcus, group G 2+ Penicillin and ampicillin are drugs of choice for treatment of beta-hemolytic streptococcal infections. Susceptibility testing of penicillins and other beta-lactam agents approved by the FDA for treatment of beta-hemolytic streptococcal infections need not be performed routinely because nonsusceptible isolates are extremely rare in any beta-hemolytic streptococcus and have not been reported for Streptococcus pyogenes (group A). (CLSI) ANTIMICROBIAL SUSCEPTIBILITY Final Comment S = Susceptible; I = Intermediate; R = Resistant P = Positive; N = Negative MICS are expressed in micrograms per mL Antibiotic RSLT#1 RSLT#2 RSLT#3 RSLT#4 Ampicillin R =R CONTINUED ON NEXT PAGE RUN DATE: 06/14/19 [facility] *LIVE* PAGE 2 RUN TIME: 910 Specimen Inquiry SPEC: [id number] PATIENT: VADIM BURGOS [id number] (Continued) Procedure Result ANTIMICROBIAL SUSCEPTIBILITY Final (continued) Cefazolin R>=64 Cefepime S<=0.12 Ceftriaxone S<=0.25 Cefuroxime S<=1 Ciprofloxacin S<=0.25 Gentamicin S<=1 Imipenem S =1 Levofloxacin S<=0.12 Meropenem S<=0.25 Piperacillin/Tazobactam S<=4 Tetracycline R>=16 Tobramycin S<=1 GRAM STAIN Final Continue Zosyn Probiotics Monitor WBC, temp and renal function closely CK in am Local wound care f/u cultures AMERICO POPE MD Jun 14, 2019 10:30
[2019-06-14 11:10] VITALS: BP 152/91
--- NOTE | 2019-06-14 13:30 | NUR ---
Wound care: Patient seen per wound care follow up regarding left and right lower leg stasis ulcers. Wounds cleansed and assessed. Recommendations to continue with Honey alginate and foam dressing to right lower leg, then Aquacel Ag to wound and cover with ABD pads and kerlix to the left lower leg. Dressings applied and patient tolerated well. No other wounds noted upon complete head to toe assessment. Patient states he is using calazime to bilateral buttocks as needed for redness and irritation. Dressing change instructions left in room. Bed lowered and call light in reach. Will follow patient regarding wound care.
--- NOTE | 2019-06-14 14:36 | NUR ---
Called by floor RN to look at patient. RN reported that patient very lethargic compared t the past few days. Tries to communicate with nirse and just falls asleep. Upon entering room Pt has eyes open. able to carry on conversation and answer all questions appropriately without delay. NIH 0. Pt states he took ambien last night for the first time and states slept hard and has felt tired all day. orders received from for bendryl 25mg Q HS. RN updated and pt resting quietly at this time.
--- NOTE | 2019-06-14 15:18 | NUR ---
Pt has been lethargic all day, unable to complete sentences as he drifts off to sleep. Pt has a hard time following conversations and seems to struggle finding words. Pt received raduien last night. AMBROCIO Carmen and this nurse went to pt's room to evaluate pt. At approx 1420 the pt was still very drowsy, a call was placed to JINNY Franco. Joan came to the pt's room and evaluated pt. Pt was much more coherent and able to follow the conversation. Will continue to monitor pt.
[2019-06-14 15:20] VITALS: BP 142/85
--- NOTE | 2019-06-14 15:52 | NUR ---
SW following. Discussed with RN, pt needing o2 upon discharge, will need 6 minute walk prior to discharge. PT recommending home with assistance, OT recommending home health. Currently on IV zosyn, will be switched to PO abx, although pt doesn't like to swallow pills. SW to meet with pt to discus discharge planning. SW will continue to follow.
[2019-06-14 19:00] VITALS: BP 150/91
[2019-06-14 23:00] VITALS: BP 143/62
[2019-06-14] MEDS: HYDROmorphone 2 MG/ML VIAL IV PRN (23:12)
[2019-06-15 03:00] VITALS: BP 168/91
[2019-06-15] MEDS: PIPERACILLIN/TAZOBACTAM 3.375 GM in IV NORMAL SALINE 50ML 50 ML IV SCH ×4 (05:52→23:42)
[2019-06-15] MEDS: HEPARIN for SUB-Q USE 5,000 UNIT/ML VIAL. SQ SCH ×3 (05:57→22:35)
[2019-06-15 07:00] VITALS: BP 149/83
[2019-06-15] MEDS: LACTOBACILLUS RHAMNOSUS GG 1 CAPSULE. PO SCH ×2 (09:03→20:28)
[2019-06-15] MEDS: FUROSEMIDE 40 MG TABLET. PO SCH (09:03)
[2019-06-15] MEDS: POTASSIUM BICARB 20 MEQ EFFERVESCENT TABLET. PO SCH ×2 (09:03→20:28)
--- NOTE | 2019-06-15 10:54 | PDOC ---
PROGRESS NOTES Chief Complaint Chief Complaint discharge dx Severe cellulitis with large bullae left lower extremitiy Fever resolved Leukocytosis 15 Yeast in groin Transaminits Super morbid obesity BMI 84 - Weight loss pgm /bariatric group appt jun 2019 Exposure Influenza Chronic heart failure Loose stools JASON, undiagnosed History of Present Illness History of Present Illness Still on IV abx per ID Cx cooking Also requested IV instead of PO zyvox from ID PLAN: lasix PO WIll dc on PO abx once shifted by ID - once cx final out NEeds to lose weight - has appt Jun bariatric team HOme per PTeval NEeds polysomnogram as OP HOme O2 rx on chart Continue Zosyn , can be changed to po levaquin for d/c 10 days ok with id Vitals Vitals Vital Signs Date Time Temp Pulse Resp B/P (MAP) Pulse Ox O2 Delivery O2 Flow Rate FiO2 06/15/19 07:00 98.3 88 18 149/83 (105) 96 Room Air 98.3 06/15/19 03:00 2.0 Physical Exam Physical Exam GENERAL: Propped up in bed, alert, eating and watching TV HEENT: Pupils equally round, reactive. Oral cavity: Pharynx pink and moist. NECK: Supple. LUNGS: Diminished aeration at the bases. Nonlabored. HEART: Distant heart sounds. ABDOMEN: Obese, soft, nontender with bowel sounds present. EXTREMITIES: Chronic venous changes in lower extremities bilaterally. His left leg is still red, but much improved with yellow blister and discharge is gone SKIN: + yeast in the groin area. NEUROLOGIC: Alert and answering questions appropriately. PIV General: Alert, Oriented X3, Cooperative, No acute distress Heart: Regular rate, Other (distant heart sounds) Lungs: Clear Abdomen: Normal bowel sounds, Soft, No tenderness Extremities: No cyanosis, Other (chronic lymphedema with LLE cellulitis) Skin: Other (LE venous dermatitis; blisters to left calf dark erythema from below knee to ankle with pitting edema) Labs LABS Laboratory Tests Test 06/14/19 14:17 Glucose (Fingerstick) 145 mg/dL (70-99) Assessment and Plan Assessmemt and Plan Problems Medical Problems: (1) Left leg cellulitis Status: Acute Comment Review of Relevant I have reviewed the following items beny (where applicable) has been applied. Labs Laboratory Tests Test 06/14/19 03:25 06/14/19 14:17 White Blood Count 16.3 x10^3/uL (4.0-11.0) Red Blood Count 4.90 x10^6/uL (4.30-5.70) Hemoglobin 13.4 g/dL (13.0-17.5) Hematocrit 41.8 % (39.0-53.0) Mean Corpuscular Volume 85 fL (79-100) Mean Corpuscular Hemoglobin 27 pg (25-35) Mean Corpuscular Hemoglobin Concent 32 g/dL (31-37) Red Cell Distribution Width 15.4 % (11.5-14.5) Platelet Count 352 x10^3/uL (140-400) Neutrophils (%) (Auto) 80 % (31-73) Lymphocytes (%) (Auto) 10 % (24-48) Monocytes (%) (Auto) 9 % (0-9) Eosinophils (%) (Auto) 1 % (0-3) Basophils (%) (Auto) 0 % (0-3) Neutrophils # (Auto) 13.0 x10^3/uL (1.8-7.7) Lymphocytes # (Auto) 1.7 x10^3/uL (1.0-4.8) Monocytes # (Auto) 1.4 x10^3/uL (0.0-1.1) Eosinophils # (Auto) 0.2 x10^3/uL (0.0-0.7) Basophils # (Auto) 0.1 x10^3/uL (0.0-0.2) Erythrocyte Sedimentation Rate 50 (0-15) Sodium Level 136 mmol/L (136-145) Potassium Level 3.5 mmol/L (3.5-5.1) Chloride Level 100 mmol/L (98-107) Carbon Dioxide Level 31 mmol/L (21-32) Anion Gap 5 (6-14) Blood Urea Nitrogen 18 mg/dL (8-26) Creatinine 1.2 mg/dL (0.7-1.3) Estimated GFR (Cockcroft-Gault) 64.1 Glucose Level 147 mg/dL (70-99) Calcium Level 8.9 mg/dL (8.5-10.1) Glucose (Fingerstick) 145 mg/dL (70-99) Laboratory Tests Test 06/14/19 14:17 Glucose (Fingerstick) 145 mg/dL (70-99) Microbiology 06/12/19 Anaerobic/Aerobic Culture, Resulted Pending 06/12/19 Anaerobic Culture Result 1 (MAJOR), Resulted Pending 06/12/19 Aerobic Culture - Preliminary, Resulted 06/12/19 Aerobic Culture Result 1 (MAJOR) - Preliminary, Resulted 06/12/19 Gram Stain - Final, Resulted 06/12/19 Gram Stain Result 1 (MAJOR) - Final, Resulted 06/12/19 Gram Stain Result 2 (MAJOR) - Final, Resulted 06/08/19 Blood Culture - Final, Complete NO GROWTH AFTER 5 DAYS Medications Current Medications Ibuprofen (Motrin) 800 mg 1X ONCE PO Last administered on 06/08/19at 19:56; Start 06/08/19 at 20:00; Stop 06/08/19 at 20:01; Status DC Acetaminophen (Tylenol) 1,000 mg 1X ONCE PO Last administered on 06/08/19at 19:56; Start 06/08/19 at 20:00; Stop 06/08/19 at 20:01; Status DC Vancomycin HCl 250 ml @ 250 mls/hr 1X ONCE IV ; Start 06/08/19 at 18:45; Stop 06/08/19 at 19:44; Status UNV Cefazolin Sodium/ Dextrose 50 ml @ 100 mls/hr 1X ONCE IV Last administered on 06/08/19at 20:02; Start 06/08/19 at 20:00; Stop 06/08/19 at 20:29; Status DC Sodium Chloride 1,000 ml @ 1,000 mls/hr 1X ONCE IV Last administered on 06/08/19at 20:02; Start 06/08/19 at 20:00; Stop 06/08/19 at 20:59; Status DC Vancomycin HCl 2 gm/Sodium Chloride 500 ml @ 250 mls/hr 1X ONCE IV Last administered on 06/08/19at 20:43; Start 06/08/19 at 20:00; Stop 06/08/19 at 21:59; Status DC Ondansetron HCl (Zofran) 4 mg PRN Q8HRS PRN IV NAUSEA/VOMITING Last administered on 06/09/19at 11:15; Start 06/08/19 at 20:15; Stop 06/09/19 at 20:14; Status DC Morphine Sulfate (Morphine Sulfate) 4 mg PRN Q6HRS PRN IV PAIN Last administered on 06/09/19at 11:16; Start 06/08/19 at 20:15; Stop 06/09/19 at 20:14; Status DC Cefazolin Sodium/ Dextrose 50 ml @ 100 mls/hr Q8HRS IV Last administered on 06/10/19at 06:36; Start 06/09/19 at 06:00; Stop 06/10/19 at 12:42; Status DC Vancomycin HCl (Vanco Per Pharmacy) 1 each PRN DAILY PRN MC SEE COMMENTS Last administered on 06/10/19at 11:12; Start 06/08/19 at 20:30; Stop 06/10/19 at 12:42; Status DC Vancomycin HCl 1.5 gm/Sodium Chloride 500 ml @ 250 mls/hr Q8H IV Last admi nistered on 06/08/19at 05:00; Start 06/08/19 at 05:00; Stop 06/08/19 at 21:21; Status DC Vancomycin HCl (Vancomycin Trough Level) 1 each 1X ONCE MC Last administered on 06/09/19at 20:30; Start 06/09/19 at 20:30; Stop 06/09/19 at 20:31; Status DC Vancomycin HCl 1.5 gm/Sodium Chloride 500 ml @ 250 mls/hr Q8H IV Last administered on 06/10/19at 04:15; Start 06/09/19 at 05:00; Stop 06/10/19 at 12:42; Status DC Lactobacillus Rhamnosus (Culturelle) 1 cap BID PO Last administered on 06/15/19at 09:03; Start 06/09/19 at 21:00 Heparin Sodium (Porcine) (Heparin Sodium) 5,000 unit Q8HRS SQ Last administered on 06/15/19at 05:57; Start 06/09/19 at 22:00 Furosemide (Lasix) 40 mg DAILY PO Last administered on 06/15/19at 09:03; Start 06/10/19 at 09:00 Potassium Chloride (Klor-Con) 10 meq DAILYWBKFT PO ; Start 06/10/19 at 08:00; Stop 06/09/19 at 16:03; Status DC Potassium Chloride (Klor-Con) 20 meq 1X ONCE PO ; Start 06/09/19 at 15:15; Stop 06/09/19 at 15:59; Status DC Perflutren Protein Type A Microsphe (Optison) 0.66 mg 1X ONCE IV ; Start 06/09/19 at 15:45; Stop 06/09/19 at 15:46; Status DC Perflutren Protein Type A Microsphe (Optison) 0.66 mg STK-MED ONCE IV ; Start 06/09/19 at 15:47; Stop 06/09/19 at 15:47; Status DC Potassium Bicarbonate (Potassium Effervescent Tablet) 20 meq 1X ONCE PO Last administered on 06/09/19at 16:17; Start 06/09/19 at 16:00; Stop 06/09/19 at 16:05; Status DC Potassium Bicarbonate (Potassium Effervescent Tablet) 10 meq DAILY ONCE PO Last administered on 06/10/19at 10:33; Start 06/10/19 at 09:00; Stop 06/10/19 at 09:01; Status DC Simethicone (Gas-X) 40 mg PRN Q4HRS PRN PO GAS / BLOATING Last administered on 06/10/19at 01:14; Start 06/09/19 at 23:45 Daptomycin 1000 mg/Sodium Chloride 50 ml @ 100 mls/hr Q24H IV Last administered on 06/12/19at 14:29; Start 06/10/19 at 13:00; Stop 06/13/19 at 10:52; Status DC Linezolid (Zyvox) 600 mg BID PO Last administered on 06/12/19at 20:56; Start 06/10/19 at 21:00; Stop 06/13/19 at 11:13; Status DC Piperacillin Sod/ Tazobactam Sod 3.375 gm/Sodium Chloride 50 ml @ 100 mls/hr Q6HRS IV Last administered on 06/15/19at 05:52; Start 06/10/19 at 13:00 Micafungin Sodium 100 mg/Dextrose 100 ml @ 100 mls/hr Q24H IV Last administered on 06/12/19at 15:25; Start 06/10/19 at 14:00; Stop 06/13/19 at 10:52; Status DC Potassium Chloride (Klor-Con) 40 meq 1X ONCE PO Last administered on 06/10/19at 18:08; Start 06/10/19 at 15:30; Stop 06/10/19 at 15:38; Status DC Potassium Chloride (Klor-Con) 20 meq DAILYWBKFT PO Last administered on 06/13/19at 10:14; Start 06/11/19 at 08:00; Stop 06/13/19 at 11:52; Status DC Hydromorphone HCl (Dilaudid) 1 mg 1X ONCE IV ; Start 06/10/19 at 19:00; Stop 06/10/19 at 19:01; Status Cancel Hydromorphone HCl (Dilaudid) 1 mg PRN Q4HRS PRN IV PAIN Last administered on 06/14/19at 23:12; Start 06/10/19 at 19:00 Oxycodone/ Acetaminophen (Percocet 5/325) 1 tab PRN Q4HRS PRN PO PAIN; Start 06/12/19 at 10:30 Ondansetron HCl (Zofran) 4 mg PRN Q6HRS PRN IVP NAUSEA/VOMITING Last administered on 06/13/19at 14:09; Start 06/12/19 at 10:30 Calcium Carbonate/ Glycine (Tums) 500 mg PRN AFTMEALHC PRN PO INDIGESTION; Start 06/12/19 at 10:30 Zolpidem Tartrate (Ambien) 5 mg PRN QHS PRN PO INSOMNIA Last administered on 06/13/19at 22:20; Start 06/12/19 at 10:30 Loperamide HCl (Imodium) 2 mg PRN Q15MIN PRN PO DIARRHEA; Start 06/12/19 at 10:30 Linezolid/Dextrose 300 ml @ 300 mls/hr Q12HR IV Last administered on 06/14/19at 09:37; Start 06/13/19 at 21:00; Stop 06/14/19 at 10:31; Status DC Potassium Bicarbonate (Potassium Effervescent Tablet) 20 meq BID PO Last administered on 06/15/19at 09:03; Start 06/13/19 at 21:00 Guaifenesin (Robitussin Dm) 10 ml PRN Q6HRS PRN PO COUGH Last administered on 06/14/19at 18:24; Start 06/13/19 at 18:00 Diphenhydramine HCl (Benadryl) 25 mg PRN QHS PRN PO INSOMNIA; Start 06/14/19 at 14:45 Active Scripts Active Reported [water pill] Turmeric (Turmeric Root Extract) 538 Mg Capsule 538 Mg PO DAILY Vitals/I & O Vital Sign - Last 24 Hours 06/14/19 06/14/19 06/14/19 06/14/19 11:10 15:20 19:00 20:00 Temp 98.0 98.0 97.6 98.0 98.0 97.6 Pulse 95 92 96 Resp 18 18 20 B/P (MAP) 152/91 (111) 142/85 (104) 150/91 (110) Pulse Ox 95 95 91 O2 Delivery Nasal Cannula Nasal Cannula Nasal Cannula Nasal Cannula O2 Flow Rate 3.0 3.0 2.0 2.0 06/14/19 06/14/19 06/14/19 06/15/19 23:00 23:12 23:49 03:00 Temp 97.6 97.8 97.6 97.8 Pulse 91 89 Resp 20 20 B/P (MAP) 143/62 (89) 168/91 (116) Pulse Ox 93 94 O2 Delivery Nasal Cannula Room Air Nasal Cannula Nasal Cannula O2 Flow Rate 2.0 2.0 2.0 06/15/19 07:00 Temp 98.3 98.3 Pulse 88 Resp 18 B/P (MAP) 149/83 (105) Pulse Ox 96 O2 Delivery Room Air Intake and Output 06/14/19 06/14/19 06/15/19 15:00 23:00 07:00 Intake Total 200 ml 440 ml 300 ml Output Total 350 ml 550 ml Balance -150 ml -110 ml 300 ml MARIA ELENA MATUTE MD Jun 15, 2019 10:54
[2019-06-15 11:00] VITALS: BP 148/73
--- NOTE | 2019-06-15 11:22 | PDOC ---
Infectious Disease Note Subjective Subjective feeling better, able to get up ROS ROS no n/v/d/sob Vital Sign Vital Signs Vital Signs Date Time Temp Pulse Resp B/P (MAP) Pulse Ox O2 Delivery O2 Flow Rate FiO2 06/15/19 08:00 Nasal Cannula 2.0 06/15/19 07:00 98.3 88 18 149/83 (105) 96 98.3 Physical Exam PHYSICAL EXAM GENERAL: Propped up in bed, alert, eating and watching TV HEENT: Pupils equally round, reactive. Oral cavity: Pharynx pink and moist. NECK: Supple. LUNGS: Diminished aeration at the bases. Nonlabored. HEART: Distant heart sounds. ABDOMEN: Obese, soft, nontender with bowel sounds present. EXTREMITIES: Chronic venous changes in lower extremities bilaterally. His left leg is still red, but much improved with yellow blister and discharge is gone SKIN: + yeast in the groin area. NEUROLOGIC: Alert and answering questions appropriately. PIV Labs Lab Laboratory Tests Test 06/14/19 14:17 Glucose (Fingerstick) 145 mg/dL (70-99) Micro ANAEROBIC-AEROBIC CULTURE Preliminary Preliminary report ANAEROBIC RES 1 Preliminary Comment No anaerobes recovered in 48 hours. AEROBIC CULT Final Preliminary report Final report AEROBIC RES 1 Final Gram negative rods Providencia rettgeri 4+ AEROBIC RES 2 Final Comment Beta hemolytic Streptococcus, group G 2+ Penicillin and ampicillin are drugs of choice for treatment of beta-hemolytic streptococcal infections. Susceptibility testing of penicillins and other beta-lactam agents approved by the FDA for treatment of beta-hemolytic streptococcal infections need not be performed routinely because nonsusceptible isolates are extremely rare in any beta-hemolytic streptococcus and have not been reported for Streptococcus pyogenes (group A). (CLSI) ANTIMICROBIAL SUSCEPTIBILITY Final Comment CONTINUED ON NEXT PAGE RUN DATE: 06/14/19 [facility] *LIVE* PAGE 2 RUN TIME: 1710 Specimen Inquiry -------- ---- SPEC: [id number] PATIENT: VADIM BURGOS [id number] (Continued) Procedure Result ANTIMICROBIAL SUSCEPTIBILITY Final (continued) S = Susceptible; I = Intermediate; R = Resistant P = Positive; N = Negative MICS are expressed in micrograms per mL Antibiotic RSLT#1 RSLT#2 RSLT#3 RSLT#4 Ampicillin R =R Cefazolin R>=64 Cefepime S<=0.12 Ceftriaxone S<=0.25 Cefuroxime S<=1 Ciprofloxacin S<=0.25 Gentamicin S<=1 Imipenem S =1 Levofloxacin S<=0.12 Meropenem S<=0.25 Piperacillin/Tazobactam S<=4 Tetracycline R>=16 Tobramycin S<=1 GRAM STAIN Final Final report GRAM STAIN RES 1 Final Comment No white blood cells seen. GRAM STAIN RES 2 Final Comment Moderate gram negative rods. Performed at: - [facility] [id number], [place], [place] [id number] Telemarketer Supervisor: ANTHONY Andersen MD, Phone: [phone] END OF REPORT Objective Assessment Severe cellulitis with large bullae left lower extremitiy Fever Leukocytosis Yeast in groin Transaminits Super morbid obesity Exposure Influenza Chronic heart failure Loose stools Plan Plan of Care ROBIC RES 1 Final Gram negative rods Providencia rettgeri 4+ AEROBIC RES 2 Final Comment Beta hemolytic Streptococcus, group G 2+ Penicillin and ampicillin are drugs of choice for treatment of beta-hemolytic streptococcal infections. Susceptibility testing of penicillins and other beta-lactam agents approved by the FDA for treatment of beta-hemolytic streptococcal infections need not be performed routinely because nonsusceptible isolates are extremely rare in any beta-hemolytic streptococcus and have not been reported for Streptococcus pyogenes (group A). (CLSI) ANTIMICROBIAL SUSCEPTIBILITY Final Comment S = Susceptible; I = Intermediate; R = Resistant P = Positive; N = Negative MICS are expressed in micrograms per mL Antibiotic RSLT#1 RSLT#2 RSLT#3 RSLT#4 Ampicillin R =R CONTINUED ON NEXT PAGE RUN DATE: 06/14/19 [facility] *LIVE* PAGE 2 RUN TIME: 910 Specimen Inquiry SPEC: [id number] PATIENT: VADIM BURGOS [id number] (Continued) -------- ---- Procedure Result ANTIMICROBIAL SUSCEPTIBILITY Final (continued) Cefazolin R>=64 Cefepime S<=0.12 Ceftriaxone S<=0.25 Cefuroxime S<=1 Ciprofloxacin S<=0.25 Gentamicin S<=1 Imipenem S =1 Levofloxacin S<=0.12 Meropenem S<=0.25 Piperacillin/Tazobactam S<=4 Tetracycline R>=16 Tobramycin S<=1 GRAM STAIN Final Continue Zosyn , can be changed to po levaquin for d/c 10 days Probiotics Monitor WBC, temp and renal function closely CK in am Local wound care f/u cultures consider [facility] AMERICO POPE MD Jun 15, 2019 11:22
[2019-06-15] MEDS: ONDANSETRON PF 4 MG/2 ML VIAL. IVP PRN (12:15)
[2019-06-15] MEDS: HYDROmorphone 2 MG/ML VIAL IV PRN ×2 (12:15→18:37)
--- NOTE | 2019-06-15 14:45 | PDOC3 ---
Discharge Summary Date of Admission: Jun 09, 2019 Date of Discharge: Jun 15, 2019 Follow-Up: 3-5 days Admitting Diagnosis comment: discharge dx Severe cellulitis with large bullae left lower extremitiy Fever resolved Leukocytosis 15 Yeast in groin Transaminits Super morbid obesity BMI 84 - Weight loss pgm /bariatric group appt jun 2019 Exposure Influenza Chronic heart failure Loose stools JASON, undiagnosed History of Present Illness History of Present Illness Still on IV abx per ID Cx cooking Also requested IV instead of PO zyvox from ID PLAN: lasix PO WIll dc on PO abx once shifted by ID - once cx final out NEeds to lose weight - has appt Jun bariatric team HOme per PTeval NEeds polysomnogram as OP HOme O2 rx on chart Continue Zosyn , can be changed to po levaquin for d/c 10 days ok with id home with home health 06/15 abg requested Vitals Vitals Vital Signs Date Time Temp Pulse Resp B/P (MAP) Pulse Ox O2 Delivery O2 Flow Rate FiO2 06/15/19 07:00 98.3 88 18 149/83 (105) 96 Room Air 98.3 06/15/19 03:00 2.0 Physical Exam Physical Exam GENERAL: Propped up in bed, alert, eating and watching TV HEENT: Pupils equally round, reactive. Oral cavity: Pharynx pink and moist. NECK: Supple. LUNGS: Diminished aeration at the bases. Nonlabored. HEART: Distant heart sounds. ABDOMEN: Obese, soft, nontender with bowel sounds present. EXTREMITIES: Chronic venous changes in lower extremities bilaterally. His left leg is still red, but much improved with yellow blister and discharge is gone SKIN: + yeast in the groin area. NEUROLOGIC: Alert and answering questions appropriately. PIV General: Alert, Oriented X3, Cooperative, No acute distress Heart: Regular rate, Other (distant heart sounds) Lungs: Clear Abdomen: Normal bowel sounds, Soft, No tenderness Extremities: No cyanosis, Other (chronic lymphedema with LLE cellulitis) Skin: Other (LE venous dermatitis; blisters to left calf dark erythema from below knee to ankle with pitting edema) FINAL DIAGNOSIS Problems Medical Problems: (1) Left leg cellulitis Status: Acute Brief Hospital Course Mr. Desai is a 49 old [sex] who presented with [ ] Discharge Medications Current Medications Ibuprofen (Motrin) 800 mg 1X ONCE PO Last administered on 06/08/19 19:56; Start 06/08/19 at 20:00; Stop 06/08/19 at 20:01; Status DC Acetaminophen (Tylenol) 1,000 mg 1X ONCE PO Last administered on 06/08/19at 19:56; Start 06/08/19 at 20:00; Stop 06/08/19 at 20:01; Status DC Vancomycin HCl 250 ml @ 250 mls/hr 1X ONCE IV ; Start 06/08/19 at 18:45; Stop 06/08/19 at 19:44; Status UNV Cefazolin Sodium/ Dextrose 50 ml @ 100 mls/hr 1X ONCE IV Last administered on 06/08/19at 20:02; Start 06/08/19 at 20:00; Stop 06/08/19 at 20:29; Status DC Sodium Chloride 1,000 ml @ 1,000 mls/hr 1X ONCE IV Last administered on 06/08/19at 20:02; Start 06/08/19 at 20:00; Stop 06/08/19 at 20:59; Status DC Vancomycin HCl 2 gm/Sodium Chloride 500 ml @ 250 mls/hr 1X ONCE IV Last administered on 06/08/19at 20:43; Start 06/08/19 at 20:00; Stop 06/08/19 at 21:59; Status DC Ondansetron HCl (Zofran) 4 mg PRN Q8HRS PRN IV NAUSEA/VOMITING Last administered on 06/09/19at 11:15; Start 06/08/19 at 20:15; Stop 06/09/19 at 20:14; Status DC Morphine Sulfate (Morphine Sulfate) 4 mg PRN Q6HRS PRN IV PAIN Last administered on 06/09/19 11:16; Start 06/08/19 at 20:15; Stop 06/09/19 at 20:14; Status DC Cefazolin Sodium/ Dextrose 50 ml @ 100 mls/hr Q8HRS IV Last administered on 06/10/19at 06:36; Start 06/09/19 at 06:00; Stop 06/10/19 at 12:42; Status DC Vancomycin HCl (Vanco Per Pharmacy) 1 each PRN DAILY PRN MC SEE COMMENTS Last administered on 06/10/19at 11:12; Start 06/08/19 at 20:30; Stop 06/10/19 at 12:42; Status DC Vancomycin HCl 1.5 gm/Sodium Chloride 500 ml @ 250 mls/hr Q8H IV Last administered on 06/08/19at 05:00; Start 06/08/19 at 05:00; Stop 06/08/19 at 21:21; Status DC Vancomycin HCl (Vancomycin Trough Level) 1 each 1X ONCE MC Last administered on 06/09/19at 20:30; Start 06/09/19 at 20:30; Stop 06/09/19 at 20:31; Status DC Vancomycin HCl 1.5 gm/Sodium Chloride 500 ml @ 250 mls/hr Q8H IV Last administered on 06/10/19at 04:15; Start 06/09/19 at 05:00; Stop 06/10/19 at 12:42; Status DC Lactobacillus Rhamnosus (Culturelle) 1 cap BID PO Last administered on at 09:03; Start 06/09/19 at 21:00 Heparin Sodium (Porcine) (Heparin Sodium) 5,000 unit Q8HRS SQ Last administered on 06/15/19at 13:45; Start 06/09/19 at 22:00 Furosemide (Lasix) 40 mg DAILY PO Last administered on 06/15/19at 09:03; Start 06/10/19 at 09:00 Potassium Chloride (Klor-Con) 10 meq DAILYWBKFT PO ; Start 06/10/19 at 08:00; Stop 06/09/19 at 16:03; Status DC Potassium Chloride (Klor-Con) 20 meq 1X ONCE PO ; Start 06/09/19 at 15:15; Stop 06/09/19 at 15:59; Status DC Perflutren Protein Type A Microsphe (Optison) 0.66 mg 1X ONCE IV ; Start 06/09/19 at 15:45; Stop 06/09/19 at 15:46; Status DC Perflutren Protein Type A Microsphe (Optison) 0.66 mg STK-MED ONCE IV ; Start 06/09/19 at 15:47; Stop 06/09/19 at 15:47; Status DC Potassium Bicarbonate (Potassium Effervescent Tablet) 20 meq 1X ONCE PO Last administered on 06/09/19at 16:17; Start 06/09/19 at 16:00; Stop 06/09/19 at 16:05; Status DC Potassium Bicarbonate (Potassium Effervescent Tablet) 10 meq DAILY ONCE PO Last administered on 06/10/19at 10:33; Start 06/10/19 at 09:00; Stop 06/10/19 at 09:01; Status DC Simethicone (Gas-X) 40 mg PRN Q4HRS PRN PO GAS / BLOATING Last administered on 06/10/19at 01:14; Start 06/09/19 at 23:45 Daptomycin 1000 mg/Sodium Chloride 50 ml @ 100 mls/hr Q24H IV Last administered on 06/12/19at 14:29; Start 06/10/19 at 13:00; Stop 06/13/19 at 10:52; Status DC Linezolid (Zyvox) 600 mg BID PO Last administered on 06/12/19at 20:56; Start 06/10/19 at 21:00; Stop 06/13/19 at 11:13; Status DC Piperacillin Sod/ Tazobactam Sod 3.375 gm/Sodium Chloride 50 ml @ 100 mls/hr Q6HRS IV Last administered on 06/15/19at 11:15; Start 06/10/19 at 13:00 Micafungin Sodium 100 mg/Dextrose 100 ml @ 100 mls/hr Q24H IV Last administered on 06/12/19at 15:25; Start 06/10/19 at 14:00; Stop 06/13/19 at 10:52; Status DC Potassium Chloride (Klor-Con) 40 meq 1X ONCE PO Last administered on at 18:08; Start 06/10/19 at 15:30; Stop 06/10/19 at 15:38; Status DC Potassium Chloride (Klor-Con) 20 meq DAILYWBKFT PO Last administered on 06/13/19at 10:14; Start 06/11/19 at 08:00; Stop 06/13/19 at 11:52; Status DC Hydromorphone HCl (Dilaudid) 1 mg 1X ONCE IV ; Start 06/10/19 at 19:00; Stop 06/10/19 at 19:01; Status Cancel Hydromorphone HCl (Dilaudid) 1 mg PRN Q4HRS PRN IV PAIN Last administered on 06/15/19at 12:15; Start 06/10/19 at 19:00 Oxycodone/ Acetaminophen (Percocet 5/325) 1 tab PRN Q4HRS PRN PO PAIN; Start 06/12/19 at 10:30 Ondansetron HCl (Zofran) 4 mg PRN Q6HRS PRN IVP NAUSEA/VOMITING Last adminis tered on 06/15/19at 12:15; Start 06/12/19 at 10:30 Calcium Carbonate/ Glycine (Tums) 500 mg PRN AFTMEALHC PRN PO INDIGESTION; Start 06/12/19 at 10:30 Zolpidem Tartrate (Ambien) 5 mg PRN QHS PRN PO INSOMNIA Last administered on 06/13/19at 22:20; Start 06/12/19 at 10:30 Loperamide HCl (Imodium) 2 mg PRN Q15MIN PRN PO DIARRHEA; Start 06/12/19 at 10:30 Linezolid/Dextrose 300 ml @ 300 mls/hr Q12HR IV Last administered on 06/14/19at 09:37; Start 06/13/19 at 21:00; Stop 06/14/19 at 10:31; Status DC Potassium Bicarbonate (Potassium Effervescent Tablet) 20 meq BID PO Last administered on 06/15/19at 09:03; Start 06/13/19 at 21:00 Guaifenesin (Robitussin Dm) 10 ml PRN Q6HRS PRN PO COUGH Last administered on 06/14/19at 18:24; Start 06/13/19 at 18:00 Diphenhydramine HCl (Benadryl) 25 mg PRN QHS PRN PO INSOMNIA; Start 06/14/19 at 14:45 Active Scripts Active Reported [water pill] Turmeric (Turmeric Root Extract) 538 Mg Capsule 538 Mg PO DAILY Vital Signs Vital Signs Date Time Temp Pulse Resp B/P (MAP) Pulse Ox O2 Delivery O2 Flow Rate FiO2 06/15/19 12:38 18 Nasal Cannula 2.0 06/15/19 11:00 98.1 88 148/73 (98) 95 98.1 Labs Laboratory Tests Test 06/14/19 03:25 06/14/19 14:17 White Blood Count 16.3 x10^3/uL (4.0-11.0) Red Blood Count 4.90 x10^6/uL (4.30-5.70) Hemoglobin 13.4 g/dL (13.0-17.5) Hematocrit 41.8 % (39.0-53.0) Mean Corpuscular Volume 85 fL (79-100) Mean Corpuscular Hemoglobin 27 pg (25-35) Mean Corpuscular Hemoglobin Concent 32 g/dL (31-37) Red Cell Distribution Width 15.4 % (11.5-14.5) Platelet Count 352 x10^3/uL (140-400) Neutrophils (%) (Auto) 80 % (31-73) Lymphocytes (%) (Auto) 10 % (24-48) Monocytes (%) (Auto) 9 % (0-9) Eosinophils (%) (Auto) 1 % (0-3) Basophils (%) (Auto) 0 % (0-3) Neutrophils # (Auto) 13.0 x10^3/uL (1.8-7.7) Lymphocytes # (Auto) 1.7 x10^3/uL (1.0-4.8) Monocytes # (Auto) 1.4 x10^3/uL (0.0-1.1) Eosinophils # (Auto) 0.2 x10^3/uL (0.0-0.7) Basophils # (Auto) 0.1 x10^3/uL (0.0-0.2) Erythrocyte Sedimentation Rate 50 (0-15) Sodium Level 136 mmol/L (136-145) Potassium Level 3.5 mmol/L (3.5-5.1) Chloride Level 100 mmol/L (98-107) Carbon Dioxide Level 31 mmol/L (21-32) Anion Gap 5 (6-14) Blood Urea Nitrogen 18 mg/dL (8-26) Creatinine 1.2 mg/dL (0.7-1.3) Estimated GFR (Cockcroft-Gault) 64.1 Glucose Level 147 mg/dL (70-99) Calcium Level 8.9 mg/dL (8.5-10.1) Glucose (Fingerstick) 145 mg/dL (70-99) Allergies Allergies Coded Allergies Type Severity Reaction Last Updated Verified No Known Drug Allergies 06/08/19 No MARIA ELENA MATUTE MD Jun 15, 2019 14:45
[2019-06-15] MEDS ORDERED: POTA20TA40 PO (14:48)
[2019-06-15] MEDS ORDERED: SIME80TA14 PO (14:48)
[2019-06-15] MEDS ORDERED: FURO40TA4 PO (14:48)
[2019-06-15] MEDS ORDERED: LACT1CAP19 PO (14:48)
[2019-06-15] MEDS ORDERED: LEVO500T59 PO (14:49)
--- NOTE | 2019-06-15 14:49 | SNU/HH DC ---
DISCHARGE WITH HOME HEALTH DISCHARGE INFORMATION: Final Diagnosis: Problems Medical Problems: (1) Left leg cellulitis Status: Acute Condition on Discharge: Stable CODE STATUS: Code Status: Full HOME HEALTH: Face to Face: I certify this patient is under my care and that I, or a nurse practitioner or physician's paraprofessional education assistant working with me, had a face to face encounter that meets the physician face to face encounter requirements with this patient on []. Medical Complications: Other (cellulitis) RN For Eval/Treatment: Yes Physical Therapy For: Evalulation/Treatment Occupational Therapy For: Evaluation/Treatment Speech Language Pathology For: Evaluation/Treatment Home Health Aide For: Self-care CHIEF MEDICAL OFFICER For: Community Resources Pt Meets Homebound Status: Fatigue w/ amb. POST DISCHARGE ORDERS: DIET AFTER DISCHARGE: ADA CHECKS AFTER DISCHARGE: Checks after discharge: Check blood press - daily TREATMENT/EQUIPMENT ORDERS: Adaptive Equipment Issued: Front wheeled walker CERTIFICATION STATEMENT: Certification Statement: Certification Statement: Based on the above finding, I certify that this patient is confined to the home and needs intermittent senior living care, physical therapy and/or speech therapy, or continues to need occupational therapy.~ This patient is under my care, and I have initiated the establishment of the plan of care.~ This patient will be followed by myself or a community physician who will periodically review the plan of care. Home Meds Reported Medications [water pill] No Conflict Check 06/09/19 Turmeric Root Extract (Turmeric) 538 Mg Capsule, 538 MG PO DAILY for supp lelment, CAP 06/09/19 MARIA ELENA MATUTE MD Jun 15, 2019 14:49
[2019-06-15 15:00] VITALS: BP 141/73
[2019-06-15 15:33] LABS: BASE EXCESS COOX 7 mmol/L (-3-3); HCO3 COOX 35 mmol/L (21-28); METHEMOGLOBIN 0.3 % (0.0-1.9); OXYHEMOGLOBIN 95.6 %; PO2 COOX 88 mmHg (75-108); SAT O2 COOX 96 % (92-99)
[2019-06-15 15:39] LABS: PCO2 COOX 63 mmHg (35-46)
--- NOTE | 2019-06-15 16:08 | NUR ---
ABG results called to Dr. Elizalde. See orders, to remove oxygen for two hours and repeat ABG on room air, Tamika JORDAN notified.
--- NOTE | 2019-06-15 16:17 | NUR ---
Patient verb. understanding POC: off oxygen for two hours and recheck ABG on room air. At this time Jazmin BECKMAN has no HH agency set up for patient and oxygen needs unknown, patient verb. understanding discharge pending ABG results and arrangements for HH will probably not be ready until 06/16/19.
--- NOTE | 2019-06-15 16:23 | NUR ---
SW following. Discussed with RN. SW met with pt to discuss home health and oxygen at home. Pt agreeable to both, and whoever can accept him. Pt not aware he was discharging today or tomorrow once home health and oxygen is set up. Pt having blood gas retested in 2 hours from now. SW faxed clinicals to [facility] to determine if they can accept pt. SW spoke with Alejandra, they are not sure they can accept pt without a 6 minute walk, also for [facility] there needs to be a respiratory dx. SW will continue to follow. RN notified.
[2019-06-15 18:20] LABS: BASE EXCESS ABG 6 mmol/L (-3-3); HCO3 ABG 30 mmol/L (21-28); PCO2 ABG 44 mmHg (35-46); PO2 ABG 56 mmHg (75-108); SAT O2 ABG 92 % (92-99)
[2019-06-15 18:23] LABS: FIO2 ABG 21%
[2019-06-15] MEDS: guaiFENesin DM 200MG/20MG 10 ML SYRUP PO PRN ×2 (18:36→23:45)
[2019-06-15 19:00] VITALS: BP 135/77
--- NOTE | 2019-06-15 19:19 | NUR ---
Dr. Chawla returned call, see nursing communication, she received ABG result and told of previous ABG. States patient has to wear oxygen, told reapplied at 2 liters per NC, patient oxygen saturation on room air 77%, with oxygen reapplied at 2 liters per NC oxygen saturation came up to 93%. Patient verb. understanding POC.
[2019-06-15 23:00] VITALS: BP 145/66
[2019-06-16 03:00] VITALS: BP 150/70
[2019-06-16] MEDS: PIPERACILLIN/TAZOBACTAM 3.375 GM in IV NORMAL SALINE 50ML 50 ML IV SCH ×4 (05:56→23:44)
[2019-06-16] MEDS: HEPARIN for SUB-Q USE 5,000 UNIT/ML VIAL. SQ SCH ×3 (06:02→22:08)
[2019-06-16 07:00] VITALS: BP 155/99
[2019-06-16] MEDS: LACTOBACILLUS RHAMNOSUS GG 1 CAPSULE. PO SCH ×2 (08:34→21:59)
[2019-06-16] MEDS: POTASSIUM BICARB 20 MEQ EFFERVESCENT TABLET. PO SCH ×2 (08:34→21:59)
[2019-06-16] MEDS: FUROSEMIDE 40 MG TABLET. PO SCH (08:34)
--- NOTE | 2019-06-16 08:39 | PDOC ---
Infectious Disease Note Subjective Subjective feeling better, able to get up ROS ROS no n/v/d/ Vital Sign Vital Signs Vital Signs Date Time Temp Pulse Resp B/P (MAP) Pulse Ox O2 Delivery O2 Flow Rate FiO2 06/16/19 07:00 98.7 95 18 155/99 (117) 95 Nasal Cannula 2.0 98.7 Physical Exam PHYSICAL EXAM GENERAL: Propped up in bed, alert, eating and watching TV HEENT: Pupils equally round, reactive. Oral cavity: Pharynx pink and moist. NECK: Supple. LUNGS: Diminished aeration at the bases. Nonlabored. HEART: Distant heart sounds. ABDOMEN: Obese, soft, nontender with bowel sounds present. EXTREMITIES: Chronic venous changes in lower extremities bilaterally. His left leg is still red, but much improved with yellow blister and discharge is gone SKIN: + yeast in the groin area. NEUROLOGIC: Alert and answering questions appropriately. PIV Labs Lab Laboratory Tests Test 06/15/19 15:15 06/15/19 18:10 O2 Saturation 96 % (92-99) 92 % (92-99) Arterial Blood pH 7.37 (7.35-7.45) 7.46 (7.35-7.45) Arterial Blood pCO2 at Patient Temp 63 mmHg (35-46) 44 mmHg (35-46) Arterial Blood pO2 at Patient Temp 88 mmHg (75-108) 56 mmHg (75-108) Arterial Blood HCO3 35 mmol/L (21-28) 30 mmol/L (21-28) Arterial Blood Base Excess 7 mmol/L (-3-3) 6 mmol/L (-3-3) Oxyhemoglobin 95.6 % Methemoglobin 0.3 % (0.0-1.9) Carbon Monoxide, Quantitative 0.5 % (0.0-1.9) FiO2 32 21% Micro ANAEROBIC-AEROBIC CULTURE Preliminary Preliminary report ANAEROBIC RES 1 Preliminary Comment No anaerobes recovered in 48 hours. AEROBIC CULT Final Preliminary report Final report AEROBIC RES 1 Final Gram negative rods Providencia rettgeri 4+ AEROBIC RES 2 Final Comment Beta hemolytic Streptococcus, group G 2+ Penicillin and ampicillin are drugs of choice for treatment of beta-hemolytic streptococcal infections. Susceptibility testing of penicillins and other beta-lactam agents approved by the FDA for treatment of beta-hemolytic streptococcal infections need not be performed routinely because nonsusceptible isolates are extremely rare in any beta-hemolytic streptococcus and have not been reported for Streptococcus pyogenes (group A). (CLSI) ANTIMICROBIAL SUSCEPTIBILITY Final Comment CONTINUED ON NEXT PAGE RUN DATE: 06/14/19 [facility] *LIVE* PAGE 2 RUN TIME: 1710 Specimen Inquiry SPEC: [id number] PATIENT: VADIM BURGOS [id number] (Continued) Procedure Result --------- --- ANTIMICROBIAL SUSCEPTIBILITY Final (continued) S = Susceptible; I = Intermediate; R = Resistant P = Positive; N = Negative MICS are expressed in micrograms per mL Antibiotic RSLT#1 RSLT#2 RSLT#3 RSLT#4 Ampicillin R =R Cefazolin R>=64 Cefepime S<=0.12 Ceftriaxone S<=0.25 Cefuroxime S<=1 Ciprofloxacin S<=0.25 Gentamicin S<=1 Imipenem S =1 Levofloxacin S<=0.12 Meropenem S<=0.25 Piperacillin/Tazobactam S<=4 Tetracycline R>=16 Tobramycin S<=1 GRAM STAIN Final Final report GRAM STAIN RES 1 Final Comment No white blood cells seen. GRAM STAIN RES 2 Final Comment Moderate gram negative rods. Performed at: [facility], [place], [place] [id number] [employer]: ANTHONY Andersen MD, Phone: [phone] END OF REPORT Objective Assessment Severe cellulitis with large bullae left lower extremitiy Fever Leukocytosis Yeast in groin Transaminits Super morbid obesity Exposure Influenza Chronic heart failure Loose stools Plan Plan of Care ROBIC RES 1 Final Gram negative rods Providencia rettgeri 4+ AEROBIC RES 2 Final Comment Beta hemolytic Streptococcus, group G 2+ Penicillin and ampicillin are drugs of choice for treatment of beta-hemolytic streptococcal infections. Susceptibility testing of penicillins and other beta-lactam agents approved by the FDA for treatment of beta-hemolytic streptococcal infections need not be performed routinely because nonsusceptible isolates are extremely rare in any beta-hemolytic streptococcus and have not been reported for Streptococcus pyogenes (group A). (CLSI) ANTIMICROBIAL SUSCEPTIBILITY Final Comment S = Susceptible; I = Intermediate; R = Resistant P = Positive; N = Negative MICS are expressed in micrograms per mL Antibiotic RSLT#1 RSLT#2 RSLT#3 RSLT#4 Ampicillin R =R CONTINUED ON NEXT PAGE RUN DATE: 06/14/19 [facility] *LIVE* PAGE 2 RUN TIME: 910 Specimen Inquiry SPEC: [id number] PATIENT: VADIM BURGOS [id number] (Continued) Procedure Result ANTIMICROBIAL SUSCEPTIBILITY Final (continued) Cefazolin R>=64 Cefepime S<=0.12 Ceftriaxone S<=0.25 Cefuroxime S<=1 Ciprofloxacin S<=0.25 Gentamicin S<=1 Imipenem S =1 Levofloxacin S<=0.12 Meropenem S<=0.25 Piperacillin/Tazobactam S<=4 Tetracycline R>=16 Tobramycin S<=1 GRAM STAIN Final Continue Zosyn , can be changed to po levaquin for d/c 10 days Probiotics Monitor WBC, temp and renal function closely Local wound care f/u cultures AMERICO POPE MD Jun 16, 2019 08:39
--- NOTE | 2019-06-16 09:35 | RESP ---
DATE OF SERVICE: The patient underwent a nocturnal desaturation study performed on 06/09 on room air. Total time collected was 4 hours and 39 minutes. Time spent between less than 80% was 1 hour and 27 minutes. IMPRESSION: Significant oxyhemoglobin desaturation below 88%. PLAN: 1. Oxygen supplementation at 2 liters per nasal cannula until the patient has been evaluated with a polysomnogram. 2. Would recommend no driving or operating machinery until the above has been addressed. REYNA TORRES MD DR: BLAKE/ken JOB#: [id number] / [id number] Henny Noonan NP
--- NOTE | 2019-06-16 10:35 | PDOC ---
PROGRESS NOTES Chief Complaint Chief Complaint discharge dx Severe cellulitis with large bullae left lower extremitiy Fever resolved Leukocytosis 15 Yeast in groin Transaminits Super morbid obesity BMI 84 - Weight loss pgm /bariatric group appt jun 2019 Exposure Influenza Chronic heart failure Loose stools JASON, undiagnosed hypoxia at rest 86% , desat study abn, needs rehab bed [facility] WILL ACCEPT IF INSURANCE APPROVES History of Present Illness History of Present Illness Still on IV abx per ID Cx cooking Also requested IV instead of PO zyvox from ID PLAN: lasix PO WIll dc on PO abx once shifted by ID - once cx final out NEeds to lose weight - has appt Jun bariatric team HOme per PTeval NEeds polysomnogram as OP HOme O2 rx on chart Continue Zosyn , can be changed to po levaquin for d/c 10 days ok with id 28 MIN PT EXAM, CHART REVIEW, > 50% OF TIME SPENT WITH EXAM, CHART REVIEW, PT CARE COORDINATION Vitals Vitals Vital Signs Date Time Temp Pulse Resp B/P (MAP) Pulse Ox O2 Delivery O2 Flow Rate FiO2 06/16/19 07:00 98.7 95 18 155/99 (117) 95 Nasal Cannula 2.0 98.7 Physical Exam Physical Exam GENERAL: Propped up in bed, alert, eating and watching TV HEENT: Pupils equally round, reactive. Oral cavity: Pharynx pink and moist. NECK: Supple. LUNGS: Diminished aeration at the bases. Nonlabored. HEART: Distant heart sounds. ABDOMEN: Obese, soft, nontender with bowel sounds present. EXTREMITIES: Chronic venous changes in lower extremities bilaterally. His left leg is still red, but much improved with yellow blister and discharge is gone SKIN: + yeast in the groin area. NEUROLOGIC: Alert and answering questions appropriately. PIV General: Alert, Oriented X3, Cooperative, No acute distress Heart: Regular rate, Other (distant heart sounds) Lungs: Clear Abdomen: Normal bowel sounds, Soft, No tenderness Extremities: No cyanosis, Other (chronic lymphedema with LLE cellulitis) Skin: Other (LE venous dermatitis; blisters to left calf dark erythema from below knee to ankle with pitting edema) Labs LABS Test Phase * Recovery Blood Pressure * 138/89 SpO2 * 95 % Heart Rate * 110 beats/min Oxygen Flow Rate * 2 lpm Oxygen Device * Nasal Cannula Dyspnea * 7 Total Distance Walked * 75 feet 6 Minute Walk Comments * SpO2 = 86% at rest on room air. Oxygen applied and initially titrated to 3 lpm nc, but decreased to 2 lpm nc within the first few minutes. Patient ambulated in hallway with walker and Physical Therapy (thank you Lubna) assist x 4.5 minutes approximately 75 feet. Recommend oxygen at 2 lpm nc with rest and exertion. Art Parth BAS FERMENTER OPERATOR CPFT SENIOR QUALITY ASSURANCE SPECIALIST TTS Laboratory Tests Test 06/15/19 15:15 06/15/19 18:10 O2 Saturation 96 % (92-99) 92 % (92-99) Arterial Blood pH 7.37 (7.35-7.45) 7.46 (7.35-7.45) Arterial Blood pCO2 at Patient Temp 63 mmHg (35-46) 44 mmHg (35-46) Arterial Blood pO2 at Patient Temp 88 mmHg (75-108) 56 mmHg (75-108) Arterial Blood HCO3 35 mmol/L (21-28) 30 mmol/L (21-28) Arterial Blood Base Excess 7 mmol/L (-3-3) 6 mmol/L (-3-3) Oxyhemoglobin 95.6 % Methemoglobin 0.3 % (0.0-1.9) Carbon Monoxide, Quantitative 0.5 % (0.0-1.9) FiO2 32 21% Assessment and Plan Assessmemt and Plan Problems Medical Problems: (1) Left leg cellulitis Status: Acute Comment Review of Relevant I have reviewed the following items beny (where applicable) has been applied. Labs Laboratory Tests Test 06/14/19 14:17 06/15/19 15:15 06/15/19 18:10 Glucose (Fingerstick) 145 mg/dL (70-99) O2 Saturation 96 % (92-99) 92 % (92-99) Arterial Blood pH 7.37 (7.35-7.45) 7.46 (7.35-7.45) Arterial Blood pCO2 at Patient Temp 63 mmHg (35-46) 44 mmHg (35-46) Arterial Blood pO2 at Patient Temp 88 mmHg (75-108) 56 mmHg (75-108) Arterial Blood HCO3 35 mmol/L (21-28) 30 mmol/L (21-28) Arterial Blood Base Excess 7 mmol/L (-3-3) 6 mmol/L (-3-3) Oxyhemoglobin 95.6 % Methemoglobin 0.3 % (0.0-1.9) Carbon Monoxide, Quantitative 0.5 % (0.0-1.9) FiO2 32 21% Laboratory Tests Test 06/15/19 15:15 06/15/19 18:10 O2 Saturation 96 % (92-99) 92 % (92-99) Arterial Blood pH 7.37 (7.35-7.45) 7.46 (7.35-7.45) Arterial Blood pCO2 at Patient Temp 63 mmHg (35-46) 44 mmHg (35-46) Arterial Blood pO2 at Patient Temp 88 mmHg (75-108) 56 mmHg (75-108) Arterial Blood HCO3 35 mmol/L (21-28) 30 mmol/L (21-28) Arterial Blood Base Excess 7 mmol/L (-3-3) 6 mmol/L (-3-3) Oxyhemoglobin 95.6 % Methemoglobin 0.3 % (0.0-1.9) Carbon Monoxide, Quantitative 0.5 % (0.0-1.9) FiO2 32 21% Microbiology 06/12/19 Anaerobic/Aerobic Culture, Resulted Pending 06/12/19 Anaerobic Culture Result 1 (MAJOR), Resulted Pending 06/12/19 Aerobic Culture - Final, Resulted 06/12/19 Aerobic Culture Result 1 (MAJOR) - Final, Resulted 06/12/19 Gram Stain - Final, Resulted 06/12/19 Gram Stain Result 1 (MAJOR) - Final, Resulted 06/12/19 Gram Stain Result 2 (MAJOR) - Final, Resulted 06/08/19 Blood Culture - Final, Complete NO GROWTH AFTER 5 DAYS Medications Current Medications Ibuprofen (Motrin) 800 mg 1X ONCE PO Last administered on 06/08/19at 19:56; Start 06/08/19 at 20:00; Stop 06/08/19 at 20:01; Status DC Acetaminophen (Tylenol) 1,000 mg 1X ONCE PO Last administered on 06/08/19at 19:56; Start 06/08/19 at 20:00; Stop 06/08/19 at 20:01; Status DC Vancomycin HCl 250 ml @ 250 mls/hr 1X ONCE IV ; Start 06/08/19 at 18:45; Stop 06/08/19 at 19:44; Status UNV Cefazolin Sodium/ Dextrose 50 ml @ 100 mls/hr 1X ONCE IV Last administered on 06/08/19at 20:02; Start 06/08/19 at 20:00; Stop 06/08/19 at 20:29; Status DC Sodium Chloride 1,000 ml @ 1,000 mls/hr 1X ONCE IV Last administered on 05/28 20:02; Start 06/08/19 at 20:00; Stop 06/08/19 at 20:59; Status DC Vancomycin HCl 2 gm/Sodium Chloride 500 ml @ 250 mls/hr 1X ONCE IV Last administered on 06/08/19at 20:43; Start 06/08/19 at 20:00; Stop 06/08/19 at 21:59; Status DC Ondansetron HCl (Zofran) 4 mg PRN Q8HRS PRN IV NAUSEA/VOMITING Last administered on 06/09/19at 11:15; Start 06/08/19 at 20:15; Stop 06/09/19 at 20:14; Status DC Morphine Sulfate (Morphine Sulfate) 4 mg PRN Q6HRS PRN IV PAIN Last administered on 06/09/19at 11:16; Start 06/08/19 at 20:15; Stop 06/09/19 at 20:14; Status DC Cefazolin Sodium/ Dextrose 50 ml @ 100 mls/hr Q8HRS IV Last administered on 06/10/19at 06:36; Start 06/09/19 at 06:00; Stop 06/10/19 at 12:42; Status DC Vancomycin HCl (Vanco Per Pharmacy) 1 each PRN DAILY PRN MC SEE COMMENTS Last administered on 06/10/19at 11:12; Start 06/08/19 at 20:30; Stop 06/10/19 at 12:42; Status DC Vancomycin HCl 1.5 gm/Sodium Chloride 500 ml @ 250 mls/hr Q8H IV Last administered on 06/08/19at 05:00; Start 06/08/19 at 05:00; Stop 06/08/19 at 21:21; Status DC Vancomycin HCl (Vancomycin Trough Level) 1 each 1X ONCE MC Last administered on 06/09/19at 20:30; Start 06/09/19 at 20:30; Stop 06/09/19 at 20:31; Status DC Vancomycin HCl 1.5 gm/Sodium Chloride 500 ml @ 250 mls/hr Q8H IV Last administered on 06/10/19at 04:15; Start 06/09/19 at 05:00; Stop 06/10/19 at 12:42; Status DC Lactobacillus Rhamnosus (Culturelle) 1 cap BID PO Last administered on 06/16/19at 08:34; Start 06/09/19 at 21:00 Heparin Sodium (Porcine) (Heparin Sodium) 5,000 unit Q8HRS SQ Last administered on 06/16/19at 06:02; Start 06/09/19 at 22:00 Furosemide (Lasix) 40 mg DAILY PO Last administered on 06/16/19at 08:34; Start 06/10/19 at 09:00 Potassium Chloride (Klor-Con) 10 meq DAILYWBKFT PO ; Start 06/10/19 at 08:00; Stop 06/09/19 at 16:03; Status DC Potassium Chloride (Klor-Con) 20 meq 1X ONCE PO ; Start 06/09/19 at 15:15; Stop 06/09/19 at 15:59; Status DC Perflutren Protein Type A Microsphe (Optison) 0.66 mg 1X ONCE IV ; Start 06/09/19 at 15:45; Stop 06/09/19 at 15:46; Status DC Perflutren Protein Type A Microsphe (Optison) 0.66 mg STK-MED ONCE IV ; Start 06/09/19 at 15:47; Stop 06/09/19 at 15:47; Status DC Potassium Bicarbonate (Potassium Effervescent Tablet) 20 meq 1X ONCE PO Last administered on 06/09/19at 16:17; Start 06/09/19 at 16:00; Stop 06/09/19 at 16:05; Status DC Potassium Bicarbonate (Potassium Effervescent Tablet) 10 meq DAILY ONCE PO Last administered on 06/10/19at 10:33; Start 06/10/19 at 09:00; Stop 06/10/19 at 09:01; Status DC Simethicone (Gas-X) 40 mg PRN Q4HRS PRN PO GAS / BLOATING Last administered on 06/10/19at 01:14; Start 06/09/19 at 23:45 Daptomycin 1000 mg/Sodium Chloride 50 ml @ 100 mls/hr Q24H IV Last administered on 06/12/19at 14:29; Start 06/10/19 at 13:00; Stop 06/13/19 at 10:52; Status DC Linezolid (Zyvox) 600 mg BID PO Last administered on 06/12/19at 20:56; Start 06/10/19 at 21:00; Stop 06/13/19 at 11:13; Status DC Piperacillin Sod/ Tazobactam Sod 3.375 gm/Sodium Chloride 50 ml @ 100 mls/hr Q6HRS IV Last administered on 06/16/19at 05:56; Start 06/10/19 at 13:00 Micafungin Sodium 100 mg/Dextrose 100 ml @ 100 mls/hr Q24H IV Last administered on 06/12/19at 15:25; Start 06/10/19 at 14:00; Stop 06/13/19 at 10:52; Status DC Potassium Chloride (Klor-Con) 40 meq 1X ONCE PO Last administered on 06/10/19at 18:08; Start 06/10/19 at 15:30; Stop 06/10/19 at 15:38; Status DC Potassium Chloride (Klor-Con) 20 meq DAILYWBKFT PO Last administered on 06/13/19at 10:14; Start 06/11/19 at 08:00; Stop 06/13/19 at 11:52; Status DC Hydromorphone HCl (Dilaudid) 1 mg 1X ONCE IV ; Start 06/10/19 at 19:00; Stop 06/10/19 at 19:01; Status Cancel Hydromorphone HCl (Dilaudid) 1 mg PRN Q4HRS PRN IV PAIN Last administered on 06/15/19at 18:37; Start 06/10/19 at 19:00 Oxycodone/ Acetaminophen (Percocet 5/325) 1 tab PRN Q4HRS PRN PO PAIN; Start 06/12/19 at 10:30 Ondansetron HCl (Zofran) 4 mg PRN Q6HRS PRN IVP NAUSEA/VOMITING Last administered on 06/15/19at 12:15; Start 06/12/19 at 10:30 Calcium Carbonate/ Glycine (Tums) 500 mg PRN AFTMEALHC PRN PO INDIGESTION; Start 06/12/19 at 10:30 Zolpidem Tartrate (Ambien) 5 mg PRN QHS PRN PO INSOMNIA Last administered on 06/13/19at 22:20; Start 06/12/19 at 10:30 Loperamide HCl (Imodium) 2 mg PRN Q15MIN PRN PO DIARRHEA; Start 06/12/19 at 10:30 Linezolid/Dextrose 300 ml @ 300 mls/hr Q12HR IV Last administered on 06/14at 09:37; Start 06/13/19 at 21:00; Stop 06/14/19 at 10:31; Status DC Potassium Bicarbonate (Potassium Effervescent Tablet) 20 meq BID PO Last administered on 06/16/19at 08:34; Start 06/13/19 at 21:00 Guaifenesin (Robitussin Dm) 10 ml PRN Q6HRS PRN PO COUGH Last administered on 06/15/19at 23:45; Start 06/13/19 at 18:00 Diphenhydramine HCl (Benadryl) 25 mg PRN QHS PRN PO INSOMNIA; Start 06/14/19 at 14:45 Levofloxacin (Levaquin) 750 mg DAILY06 PO Last administered on 06/16/19at 08:53; Start 06/16/19 at 09:00 Active Scripts Active Reported [water pill] Turmeric (Turmeric Root Extract) 538 Mg Capsule 538 Mg PO DAILY Vitals/I & O Vital Sign - Last 24 Hours 06/15/19 06/15/19 06/15/19 06/15/19 11:00 12:15 12:38 15:00 Temp 98.1 98.0 98.1 98.0 Pulse 88 95 Resp 18 18 18 18 B/P (MAP) 148/73 (98) 141/73 (95) Pulse Ox 95 94 O2 Delivery Nasal Cannula Nasal Cannula Nasal Cannula Nasal Cannula O2 Flow Rate 3.0 2.0 3.0 06/15/19 06/15/19 06/15/19 06/15/19 18:37 19:00 19:07 20:00 Temp 97.4 97.4 Pulse 96 Resp 18 18 B/P (MAP) 135/77 (96) Pulse Ox 93 92 O2 Delivery Nasal Cannula Nasal Cannula Nasal Cannula Nasal Cannula O2 Flow Rate 2.0 3.0 2.0 12/19/19 12/20/19 12/20/19 23:00 03:00 07:00 Temp 97.7 97.9 98.7 97.7 97.9 98.7 Pulse 93 77 95 Resp 18 17 18 B/P (MAP) 145/66 (92) 150/70 (96) 155/99 (117) Pulse Ox 94 94 95 O2 Delivery Nasal Cannula Nasal Cannula Nasal Cannula O2 Flow Rate 3.0 3.0 2.0 Intake and Output 06/15/19 06/15/19 06/16/19 15:00 23:00 07:00 Intake Total 890 ml 610 ml 220 ml Output Total 500 ml 300 ml 425 ml Balance 390 ml 310 ml -205 ml MARIA ELENA MATUTE MD Jun 16, 2019 10:35
[2019-06-16 11:00] VITALS: BP 152/91
--- NOTE | 2019-06-16 11:01 | NUR ---
SW following. Discussed with RN and physical therapy. Pt is not safe to go home, PT recommending Acute rehab. SW faxed referral to [facility]. Awaiting acceptance decision and will need insurance auth. Pt in agreement. SW will continue to follow. RN notified.
[2019-06-16 15:00] VITALS: BP 148/81
[2019-06-16] MEDS: oxyCODONE/APAP 5/325 1 TAB TABLET PO PRN ×2 (17:57→21:59)
[2019-06-16 19:00] VITALS: BP 155/93
[2019-06-16 23:06] VITALS: BP 147/85
[2019-06-17 03:09] VITALS: BP 172/99
[2019-06-17] MEDS: PIPERACILLIN/TAZOBACTAM 3.375 GM in IV NORMAL SALINE 50ML 50 ML IV SCH ×3 (05:48→17:26)
[2019-06-17] MEDS: oxyCODONE/APAP 5/325 1 TAB TABLET PO PRN ×3 (05:49→18:25)
[2019-06-17] MEDS: HEPARIN for SUB-Q USE 5,000 UNIT/ML VIAL. SQ SCH ×3 (05:50→22:12)
[2019-06-17 07:00] VITALS: BP 150/100
[2019-06-17] MEDS: POTASSIUM BICARB 20 MEQ EFFERVESCENT TABLET. PO SCH ×2 (08:45→20:52)
[2019-06-17] MEDS: LACTOBACILLUS RHAMNOSUS GG 1 CAPSULE. PO SCH ×2 (08:45→20:51)
[2019-06-17] MEDS: FUROSEMIDE 40 MG TABLET. PO SCH (08:45)
--- NOTE | 2019-06-17 10:55 | PDOC ---
PROGRESS NOTES Chief Complaint Chief Complaint discharge dx Severe cellulitis with large bullae left lower extremitiy Fever resolved Leukocytosis 15 Yeast in groin Transaminits Super morbid obesity BMI 84 - Weight loss pgm /bariatric group appt jun 2019 Exposure Influenza Chronic heart failure Loose stools JASON, undiagnosed hypoxia at rest 86% , desat study abn, needs rehab bed [facility] WILL ACCEPT IF INSURANCE APPROVES History of Present Illness History of Present Illness Still on IV abx per ID Cx cooking Also requested IV instead of PO zyvox from ID PLAN: lasix PO WIll dc on PO abx once shifted by ID - once cx final out NEeds to lose weight - has appt Jun bariatric team HOme per PTeval NEeds polysomnogram as OP HOme O2 rx on chart Continue Zosyn , can be changed to po levaquin for d/c 10 days ok with id 29 MIN PT EXAM, CHART REVIEW, > 50% OF TIME SPENT WITH EXAM, CHART REVIEW, PT CARE COORDINATION Vitals Vitals Vital Signs Date Time Temp Pulse Resp B/P (MAP) Pulse Ox O2 Delivery O2 Flow Rate FiO2 06/17/19 07:00 97.9 93 20 150/100 (117) 95 Nasal Cannula 2.0 97.9 Physical Exam Physical Exam GENERAL: Propped up in bed, alert, eating and watching TV HEENT: Pupils equally round, reactive. Oral cavity: Pharynx pink and moist. NECK: Supple. LUNGS: Diminished aeration at the bases. Nonlabored. HEART: Distant heart sounds. ABDOMEN: Obese, soft, nontender with bowel sounds present. EXTREMITIES: Chronic venous changes in lower extremities bilaterally. His left leg is still red, but much improved with yellow blister and discharge is gone SKIN: + yeast in the groin area. NEUROLOGIC: Alert and answering questions appropriately. PIV General: Alert, Oriented X3, Cooperative, No acute distress Heart: Regular rate, Other (distant heart sounds) Lungs: Clear Abdomen: Normal bowel sounds, Soft, No tenderness Extremities: No cyanosis, Other (chronic lymphedema with LLE cellulitis) Skin: Other (LE venous dermatitis; blisters to left calf dark erythema from below knee to ankle with pitting edema) Assessment and Plan Assessmemt and Plan Problems Medical Problems: (1) Left leg cellulitis Status: Acute Comment Review of Relevant I have reviewed the following items beny (where applicable) has been applied. Labs Laboratory Tests Test 06/15/19 15:15 06/15/19 18:10 O2 Saturation 96 % (92-99) 92 % (92-99) Arterial Blood pH 7.37 (7.35-7.45) 7.46 (7.35-7.45) Arterial Blood pCO2 at Patient Temp 63 mmHg (35-46) 44 mmHg (35-46) Arterial Blood pO2 at Patient Temp 88 mmHg (75-108) 56 mmHg (75-108) Arterial Blood HCO3 35 mmol/L (21-28) 30 mmol/L (21-28) Arterial Blood Base Excess 7 mmol/L (-3-3) 6 mmol/L (-3-3) Oxyhemoglobin 95.6 % Methemoglobin 0.3 % (0.0-1.9) Carbon Monoxide, Quantitative 0.5 % (0.0-1.9) FiO2 32 21% Microbiology 06/12/19 Anaerobic/Aerobic Culture - Final, Complete 06/12/19 Anaerobic Culture Result 1 (MAJOR) - Final, Complete 06/12/19 Aerobic Culture - Final, Complete 06/12/19 Aerobic Culture Result 1 (MAJOR) - Final, Complete 06/12/19 Gram Stain - Final, Complete 06/12/19 Gram Stain Result 1 (MAJOR) - Final, Complete 06/12/19 Gram Stain Result 2 (MAJOR) - Final, Complete 06/08/19 Blood Culture - Final, Complete NO GROWTH AFTER 5 DAYS Medications Current Medications Ibuprofen (Motrin) 800 mg 1X ONCE PO Last administered on 06/08/19at 19:56; Start 06/08/19 at 20:00; Stop 06/08/19 at 20:01; Status DC Acetaminophen (Tylenol) 1,000 mg 1X ONCE PO Last administered on 06/08/19at 19:56; Start 06/08/19 at 20:00; Stop 06/08/19 at 20:01; Status DC Vancomycin HCl 250 ml @ 250 mls/hr 1X ONCE IV ; Start 06/08/19 at 18:45; Stop 06/08/19 at 19:44; Status UNV Cefazolin Sodium/ Dextrose 50 ml @ 100 mls/hr 1X ONCE IV Last administered on 06/08/19at 20:02; Start 06/08/19 at 20:00; Stop 06/08/19 at 20:29; Status DC Sodium Chloride 1,000 ml @ 1,000 mls/hr 1X ONCE IV Last administered on 06/08/19at 20:02; Start 06/08/19 at 20:00; Stop 06/08/19 at 20:59; Status DC Vancomycin HCl 2 gm/Sodium Chloride 500 ml @ 250 mls/hr 1X ONCE IV Last administered on 06/08/19at 20:43; Start 06/08/19 at 20:00; Stop 06/08/19 at 21:59; Status DC Ondansetron HCl (Zofran) 4 mg PRN Q8HRS PRN IV NAUSEA/VOMITING Last adminis tered on 06/09/19at 11:15; Start 06/08/19 at 20:15; Stop 06/09/19 at 20:14; Status DC Morphine Sulfate (Morphine Sulfate) 4 mg PRN Q6HRS PRN IV PAIN Last administered on 06/09/19at 11:16; Start 06/08/19 at 20:15; Stop 06/09/19 at 20:14; Status DC Cefazolin Sodium/ Dextrose 50 ml @ 100 mls/hr Q8HRS IV Last administered on 06/10/19at 06:36; Start 06/09/19 at 06:00; Stop 06/10/19 at 12:42; Status DC Vancomycin HCl (Vanco Per Pharmacy) 1 each PRN DAILY PRN MC SEE COMMENTS Last administered on 06/10/19at 11:12; Start 06/08/19 at 20:30; Stop 06/10/19 at 12:42; Status DC Vancomycin HCl 1.5 gm/Sodium Chloride 500 ml @ 250 mls/hr Q8H IV Last administered on 06/08/19at 05:00; Start 06/08/19 at 05:00; Stop 06/08/19 at 21:21; Status DC Vancomycin HCl (Vancomycin Trough Level) 1 each 1X ONCE MC Last administered on 06/09/19at 20:30; Start 06/09/19 at 20:30; Stop 06/09/19 at 20:31; Status DC Vancomycin HCl 1.5 gm/Sodium Chloride 500 ml @ 250 mls/hr Q8H IV Last administered on 06/10/19at 04:15; Start 06/09/19 at 05:00; Stop 06/10/19 at 12:42; Status DC Lactobacillus Rhamnosus (Culturelle) 1 cap BID PO Last administered on 06/17/19at 08:45; Start 06/09/19 at 21:00 Heparin Sodium (Porcine) (Heparin Sodium) 5,000 unit Q8HRS SQ Last administered on 06/17/19at 05:50; Start 06/09/19 at 22:00 Furosemide (Lasix) 40 mg DAILY PO Last administered on 06/17/19at 08:45; Start 06/10/19 at 09:00 Potassium Chloride (Klor-Con) 10 meq DAILYWBKFT PO ; Start 06/10/19 at 08:00; Stop 06/09/19 at 16:03; Status DC Potassium Chloride (Klor-Con) 20 meq 1X ONCE PO ; Start 06/09/19 at 15:15; Stop 06/09/19 at 15:59; Status DC Perflutren Protein Type A Microsphe (Optison) 0.66 mg 1X ONCE IV ; Start 06/09/19 at 15:45; Stop 06/09/19 at 15:46; Status DC Perflutren Protein Type A Microsphe (Optison) 0.66 mg STK-MED ONCE IV ; Start 06/09/19 at 15:47; Stop 06/09/19 at 15:47; Status DC Potassium Bicarbonate (Potassium Effervescent Tablet) 20 meq 1X ONCE PO Last administered on 06/09/19at 16:17; Start 06/09/19 at 16:00; Stop 06/09/19 at 16:05; Status DC Potassium Bicarbonate (Potassium Effervescent Tablet) 10 meq DAILY ONCE PO Last administered on 06/10/19at 10:33; Start 06/10/19 at 09:00; Stop 06/10/19 at 09:01; Status DC Simethicone (Gas-X) 40 mg PRN Q4HRS PRN PO GAS / BLOATING Last administered on 06/10/19at 01:14; Start 06/09/19 at 23:45 Daptomycin 1000 mg/Sodium Chloride 50 ml @ 100 mls/hr Q24H IV Last administered on 06/12/19at 14:29; Start 06/10/19 at 13:00; Stop 06/13/19 at 10:52; Status DC Linezolid (Zyvox) 600 mg BID PO Last administered on 06/12/19at 20:56; Start 06/10/19 at 21:00; Stop 06/13/19 at 11:13; Status DC Piperacillin Sod/ Tazobactam Sod 3.375 gm/Sodium Chloride 50 ml @ 100 mls/hr Q6HRS IV Last administered on 06/17/19at 05:48; Start 06/10/19 at 13:00 Micafungin Sodium 100 mg/Dextrose 100 ml @ 100 mls/hr Q24H IV Last administered on 06/12/19at 15:25; Start 06/10/19 at 14:00; Stop 06/13/19 at 10:52; Status DC Potassium Chloride (Klor-Con) 40 meq 1X ONCE PO Last administered on 06/10/19at 18:08; Start 06/10/19 at 15:30; Stop 06/10/19 at 15:38; Status DC Potassium Chloride (Klor-Con) 20 meq DAILYWBKFT PO Last administered on 06/13/19at 10:14; Start 06/11/19 at 08:00; Stop 06/13/19 at 11:52; Status DC Hydromorphone HCl (Dilaudid) 1 mg 1X ONCE IV ; Start 06/10/19 at 19:00; Stop 06/10/19 at 19:01; Status Cancel Hydromorphone HCl (Dilaudid) 1 mg PRN Q4HRS PRN IV PAIN Last administered on 06/15/19at 18:37; Start 06/10/19 at 19:00 Oxycodone/ Acetaminophen (Percocet 5/325) 1 tab PRN Q4HRS PRN PO PAIN Last administered on 06/17/19at 05:49; Start 06/12/19 at 10:30 Ondansetron HCl (Zofran) 4 mg PRN Q6HRS PRN IVP NAUSEA/VOMITING Last administered on 06/15/19at 12:15; Start 06/12/19 at 10:30 Calcium Carbonate/ Glycine (Tums) 500 mg PRN AFTMEALHC PRN PO INDIGESTION; Start 06/12/19 at 10:30 Zolpidem Tartrate (Ambien) 5 mg PRN QHS PRN PO INSOMNIA Last administered on 06/13/19at 22:20; Start 06/12/19 at 10:30 Loperamide HCl (Imodium) 2 mg PRN Q15MIN PRN PO DIARRHEA; Start 06/12/19 at 10:30 Linezolid/Dextrose 300 ml @ 300 mls/hr Q12HR IV Last administered on 06/14/19at 09:37; Start 06/13/19 at 21:00; Stop 06/14/19 at 10:31; Status DC Potassium Bicarbonate (Potassium Effervescent Tablet) 20 meq BID PO Last administered on 06/17/19at 08:45; Start 06/13/19 at 21:00 Guaifenesin (Robitussin Dm) 10 ml PRN Q6HRS PRN PO COUGH Last administered on 06/15/19at 23:45; Start 06/13/19 at 18:00 Diphenhydramine HCl (Benadryl) 25 mg PRN QHS PRN PO INSOMNIA; Start 06/14/19 at 14:45 Levofloxacin (Levaquin) 750 mg DAILY06 PO Last administered on 06/17/19at 05:49; Start 06/16/19 at 09:00 Active Scripts Active Reported [water pill] Turmeric (Turmeric Root Extract) 538 Mg Capsule 538 Mg PO DAILY Vitals/I & O Vital Sign - Last 24 Hours 06/16/19 06/16/19 06/16/19 06/16/19 11:00 15:00 17:57 19:00 Temp 98.2 98.0 98.2 98.2 98.0 98.2 Pulse 97 103 104 Resp 16 18 20 B/P (MAP) 152/91 (111) 148/81 (103) 155/93 (113) Pulse Ox 96 93 94 O2 Delivery Nasal Cannula Nasal Cannula Nasal Cannula Room Air O2 Flow Rate 2.0 2.0 06/16/19 06/16/19 06/16/19 06/16/19 19:07 20:30 21:59 23:00 O2 Delivery Nasal Cannula Nasal Cannula Nasal Cannula Nasal Cannula O2 Flow Rate 3.0 2.0 3.0 2.0 06/16/19 06/17/19 06/17/19 06/17/19 23:06 03:09 05:49 06:49 Temp 98.2 97.8 98.2 97.8 Pulse 95 86 Resp 20 20 B/P (MAP) 147/85 (105) 172/99 (123) Pulse Ox 95 93 O2 Delivery Room Air Nasal Cannula Nasal Cannula Nasal Cannula O2 Flow Rate 2.0 2.0 06/17/19 07:00 Temp 97.9 97.9 Pulse 93 Resp 20 B/P (MAP) 150/100 (117) Pulse Ox 95 O2 Delivery Nasal Cannula O2 Flow Rate 2.0 Intake and Output 06/16/19 06/16/19 06/17/19 15:00 23:00 07:00 Output Total 350 ml 600 ml Balance -350 ml -600 ml MARIA ELENA MATUTE MD Jun 17, 2019 10:55
[2019-06-17 11:00] VITALS: BP_SYST 149; BP_SYST 154; BP_DIAS 104; BP_DIAS 94
[2019-06-17 15:00] VITALS: BP 149/104
--- NOTE | 2019-06-17 16:06 | NUR ---
Discharge Note: VADIM BURGOS[address] [place] [address] Discharge instructions and discharge home medications reviewed with Other facility and a copy given. All questions have been answered and understanding verbalized. The following instructions and handouts were given: Patient sent with medication list and follow up instructions. Discontinued lines and drains: Iv removed per protocol. Patient discharged to [facility]. Report given to Kirstin ALBRECHT. Addendum: 06/19/19 at 1336 by JOAQUIM PALMER RN disregard note. Charted on wrong patient.
[2019-06-17 19:00] VITALS: BP 150/87
[2019-06-17 23:06] VITALS: BP 178/108
[2019-06-18] MEDS: diphenhydrAMINE HCL 25 MG CAPSULE PO PRN (00:01)
[2019-06-18] MEDS: oxyCODONE/APAP 5/325 1 TAB TABLET PO PRN ×4 (00:01→18:41)
[2019-06-18] MEDS: PIPERACILLIN/TAZOBACTAM 3.375 GM in IV NORMAL SALINE 50ML 50 ML IV SCH ×2 (00:02→05:35)
[2019-06-18 03:06] VITALS: BP 156/103
[2019-06-18] MEDS: HEPARIN for SUB-Q USE 5,000 UNIT/ML VIAL. SQ SCH ×3 (05:46→21:33)
[2019-06-18 07:00] VITALS: BP 154/112
[2019-06-18] MEDS ORDERED: cloNIDine HCL 0.1 MG TABLET PO ONE (08:15)
[2019-06-18] MEDS: LACTOBACILLUS RHAMNOSUS GG 1 CAPSULE. PO SCH ×2 (08:22→21:19)
[2019-06-18] MEDS: POTASSIUM BICARB 20 MEQ EFFERVESCENT TABLET. PO SCH ×2 (08:24→21:19)
[2019-06-18] MEDS: amLODIPine BESYLATE 5 MG TABLET PO SCH (08:24)
[2019-06-18] MEDS: FUROSEMIDE 40 MG TABLET. PO SCH (08:24)
--- NOTE | 2019-06-18 09:57 | PDOC ---
PROGRESS NOTES Chief Complaint Chief Complaint discharge dx Severe cellulitis with large bullae left lower extremitiy Fever resolved Leukocytosis 15 Yeast in groin Transaminits Super morbid obesity BMI 84 - Weight loss pgm /bariatric group appt jun 2019 Exposure Influenza Chronic heart failure Loose stools JASON, undiagnosed hypoxia at rest 86% , desat study abn, needs rehab bed MAR WILL ACCEPT IF INSURANCE APPROVES Levaquin times 10 days (started 06/16) History of Present Illness History of Present Illness Still on IV abx per ID Cx cooking Also requested IV instead of PO zyvox from ID PLAN: lasix PO WIll dc on PO abx once shifted by ID - once cx final out NEeds to lose weight - has appt Jun bariatric team HOme per PTeval NEeds polysomnogram as OP HOme O2 rx on chart Continue Zosyn , can be changed to po levaquin for d/c 10 days ok with id 29 MIN PT EXAM, CHART REVIEW, > 50% OF TIME SPENT WITH EXAM, CHART REVIEW, PT CARE COORDINATION Vitals Vitals Vital Signs Date Time Temp Pulse Resp B/P (MAP) Pulse Ox O2 Delivery O2 Flow Rate FiO2 06/18/19 08:24 91 154/112 06/18/19 07:06 Nasal Cannula 06/18/19 07:00 97.9 18 93 2.0 97.9 Physical Exam Physical Exam GENERAL: Propped up in bed, alert, eating and watching TV HEENT: Pupils equally round, reactive. Oral cavity: Pharynx pink and moist. NECK: Supple. LUNGS: Diminished aeration at the bases. Nonlabored. HEART: Distant heart sounds. ABDOMEN: Obese, soft, nontender with bowel sounds present. EXTREMITIES: Chronic venous changes in lower extremities bilaterally. His left leg is still red, but much improved with yellow blister and discharge is gone SKIN: + yeast in the groin area. NEUROLOGIC: Alert and answering questions appropriately. PIV General: Alert, Oriented X3, Cooperative, No acute distress Heart: Regular rate, Other (distant heart sounds) Lungs: Clear Abdomen: Normal bowel sounds, Soft, No tenderness Extremities: No cyanosis, Other (chronic lymphedema with LLE cellulitis) Skin: Other (LE venous dermatitis; blisters to left calf dark erythema from below knee to ankle with pitting edema) Labs LABS Procedure Result ANAEROBIC-AEROBIC CULTURE Final Preliminary report Final report ANAEROBIC RES 1 Final Comment No anaerobes recovered in 48 hours. No anaerobic growth in 72 hours. AEROBIC CULT Final Preliminary report Final report AEROBIC RES 1 Final Gram negative rods Providencia rettgeri 4+ AEROBIC RES 2 Final Comment Beta hemolytic Streptococcus, group G 2+ Penicillin and ampicillin are drugs of choice for treatment of beta-hemolytic streptococcal infections. Susceptibility testing of penicillins and other beta-lactam agents approved by the FDA for treatment of beta-hemolytic streptococcal infections need not be performed routinely because nonsusceptible isolates are extremely rare in any beta-hemolytic streptococcus and have not been reported for Streptococcus pyogenes (group A). (CLSI) Assessment and Plan Assessmemt and Plan Problems Medical Problems: (1) Left leg cellulitis Status: Acute Comment Review of Relevant I have reviewed the following items beny (where applicable) has been applied. Labs Microbiology 06/12/19 Anaerobic/Aerobic Culture - Final, Complete 06/12/19 Anaerobic Culture Result 1 (MAJOR) - Final, Complete 06/12/19 Aerobic Culture - Final, Complete 06/12/19 Aerobic Culture Result 1 (MAJOR) - Final, Complete 06/12/19 Gram Stain - Final, Complete 06/12/19 Gram Stain Result 1 (MAJOR) - Final, Complete 06/12/19 Gram Stain Result 2 (MAJOR) - Final, Complete 06/08/19 Blood Culture - Final, Complete NO GROWTH AFTER 5 DAYS Medications Current Medications Ibuprofen (Motrin) 800 mg 1X ONCE PO Last administered on 06/08/19 19:56; Start 06/08/19 at 20:00; Stop 06/08/19 at 20:01; Status DC Acetaminophen (Tylenol) 1,000 mg 1X ONCE PO Last administered on 06/08/19 19:56; Start 06/08/19 at 20:00; Stop 06/08/19 at 20:01; Status DC Vancomycin HCl 250 ml @ 250 mls/hr 1X ONCE IV ; Start 06/08/19 at 18:45; Stop 06/08/19 at 19:44; Status UNV Cefazolin Sodium/ Dextrose 50 ml @ 100 mls/hr 1X ONCE IV Last administered on 06/08/19at 20:02; Start 06/08/19 at 20:00; Stop 06/08/19 at 20:29; Status DC Sodium Chloride 1,000 ml @ 1,000 mls/hr 1X ONCE IV Last administered on 06/08/19 20:02; Start 06/08/19 at 20:00; Stop 06/08/19 at 20:59; Status DC Vancomycin HCl 2 gm/Sodium Chloride 500 ml @ 250 mls/hr 1X ONCE IV Last administered on 06/08/19at 20:43; Start 06/08/19 at 20:00; Stop 06/08/19 at 21:59; Status DC Ondansetron HCl (Zofran) 4 mg PRN Q8HRS PRN IV NAUSEA/VOMITING Last administered on 06/09/19 11:15; Start 06/08/19 at 20:15; Stop 06/09/19 at 20:14; Status DC Morphine Sulfate (Morphine Sulfate) 4 mg PRN Q6HRS PRN IV PAIN Last administered on 06/09/19at 11:16; Start 06/08/19 at 20:15; Stop 06/09/19 at 20:14; Status DC Cefazolin Sodium/ Dextrose 50 ml @ 100 mls/hr Q8HRS IV Last administered on 06/10/19at 06:36; Start 06/09/19 at 06:00; Stop 06/10/19 at 12:42; Status DC Vancomycin HCl (Vanco Per Pharmacy) 1 each PRN DAILY PRN MC SEE COMMENTS Last administered on 06/10/19at 11:12; Start 06/08/19 at 20:30; Stop 06/10/19 at 12:42; Status DC Vancomycin HCl 1.5 gm/Sodium Chloride 500 ml @ 250 mls/hr Q8H IV Last administered on 06/08/19at 05:00; Start 06/08/19 at 05:00; Stop 06/08/19 at 21:21; Status DC Vancomycin HCl (Vancomycin Trough Level) 1 each 1X ONCE MC Last administered on 06/09/19at 20:30; Start 06/09/19 at 20:30; Stop 06/09/19 at 20:31; Status DC Vancomycin HCl 1.5 gm/Sodium Chloride 500 ml @ 250 mls/hr Q8H IV Last administered on 06/10/19at 04:15; Start 06/09/19 at 05:00; Stop 06/10/19 at 12:42; Status DC Lactobacillus Rhamnosus (Culturelle) 1 cap BID PO Last administered on 06/18/19at 08:22; Start 06/09/19 at 21:00 Heparin Sodium (Porcine) (Heparin Sodium) 5,000 unit Q8HRS SQ Last administered on 06/18/19at 05:46; Start 06/09/19 at 22:00 Furosemide (Lasix) 40 mg DAILY PO Last administered on 06/18/19at 08:24; Start 06/10/19 at 09:00 Potassium Chloride (Klor-Con) 10 meq DAILYWBKFT PO ; Start 06/10/19 at 08:00; Stop 06/09/19 at 16:03; Status DC Potassium Chloride (Klor-Con) 20 meq 1X ONCE PO ; Start 06/09/19 at 15:15; Stop 06/09/19 at 15:59; Status DC Perflutren Protein Type A Microsphe (Optison) 0.66 mg 1X ONCE IV ; Start 06/09/19 at 15:45; Stop 06/09/19 at 15:46; Status DC Perflutren Protein Type A Microsphe (Optison) 0.66 mg STK-MED ONCE IV ; Start 06/09/19 at 15:47; Stop 06/09/19 at 15:47; Status DC Potassium Bicarbonate (Potassium Effervescent Tablet) 20 meq 1X ONCE PO Last administered on 06/09/19at 16:17; Start 06/09/19 at 16:00; Stop 06/09/19 at 16:05; Status DC Potassium Bicarbonate (Potassium Effervescent Tablet) 10 meq DAILY ONCE PO Last administered on 06/10/19at 10:33; Start 06/10/19 at 09:00; Stop 06/10/19 at 09:01; Status DC Simethicone (Gas-X) 40 mg PRN Q4HRS PRN PO GAS / BLOATING Last administered on 06/10/19at 01:14; Start 06/09/19 at 23:45 Daptomycin 1000 mg/Sodium Chloride 50 ml @ 100 mls/hr Q24H IV Last administered on 06/12/19at 14:29; Start 06/10/19 at 13:00; Stop 06/13/19 at 10:52; Status DC Linezolid (Zyvox) 600 mg BID PO Last administered on 06/12/19at 20:56; Start 06/10/19 at 21:00; Stop 06/13/19 at 11:13; Status DC Piperacillin Sod/ Tazobactam Sod 3.375 gm/Sodium Chloride 50 ml @ 100 mls/hr Q6HRS IV Last administered on 06/18/19at 05:35; Start 06/10/19 at 13:00 Micafungin Sodium 100 mg/Dextrose 100 ml @ 100 mls/hr Q24H IV Last administered on 06/12/19at 15:25; Start 06/10/19 at 14:00; Stop 06/13/19 at 10:52; Status DC Potassium Chloride (Klor-Con) 40 meq 1X ONCE PO Last administered on 9at 18:08; Start 06/10/19 at 15:30; Stop 06/10/19 at 15:38; Status DC Potassium Chloride (Klor-Con) 20 meq DAILYWBKFT PO Last administered on 06/13/19at 10:14; Start 06/11/19 at 08:00; Stop 06/13/19 at 11:52; Status DC Hydromorphone HCl (Dilaudid) 1 mg 1X ONCE IV ; Start 06/10/19 at 19:00; Stop 06/10/19 at 19:01; Status Cancel Hydromorphone HCl (Dilaudid) 1 mg PRN Q4HRS PRN IV PAIN Last administered on 06/15/19at 18:37; Start 06/10/19 at 19:00 Oxycodone/ Acetaminophen (Percocet 5/325) 1 tab PRN Q4HRS PRN PO PAIN Last administered on 06/18/19 06:06; Start 06/12/19 at 10:30 Ondansetron HCl (Zofran) 4 mg PRN Q6HRS PRN IVP NAUSEA/VOMITING Last administered on 06/15/19 12:15; Start 06/12/19 at 10:30 Calcium Carbonate/ Glycine (Tums) 500 mg PRN AFTMEALHC PRN PO INDIGESTION; Start 06/12/19 at 10:30 Zolpidem Tartrate (Ambien) 5 mg PRN QHS PRN PO INSOMNIA Last administered on 06/13/19 22:20; Start 06/12/19 at 10:30 Loperamide HCl (Imodium) 2 mg PRN Q15MIN PRN PO DIARRHEA; Start 06/12/19 at 10:30 Linezolid/Dextrose 300 ml @ 300 mls/hr Q12HR IV Last administered on 06/14/19at 09:37; Start 06/13/19 at 21:00; Stop 06/14/19 at 10:31; Status DC Potassium Bicarbonate (Potassium Effervescent Tablet) 20 meq BID PO Last administered on 06/18/19 08:24; Start 06/13/19 at 21:00 Guaifenesin (Robitussin Dm) 10 ml PRN Q6HRS PRN PO COUGH Last administered on 06/15/19 23:45; Start 06/13/19 at 18:00 Diphenhydramine HCl (Benadryl) 25 mg PRN QHS PRN PO INSOMNIA Last administered on 06/18/19 00:01; Start 06/14/19 at 14:45 Levofloxacin (Levaquin) 750 mg DAILY06 PO Last administered on 06/18/19 05:35; Start 06/16/19 at 09:00 Clonidine HCl (Catapres) 0.1 mg 1X ONCE PO Last administered on 06/18/19 08:24; Start 06/18/19 at 08:15; Stop 06/18/19 at 08:16; Status DC Amlodipine Besylate (Norvasc) 5 mg DAILY PO Last administered on 12/22/19at 08:24; Start 06/18/19 at 09:00 Active Scripts Active Reported [water pill] Turmeric (Turmeric Root Extract) 538 Mg Capsule 538 Mg PO DAILY Vitals/I & O Vital Sign - Last 24 Hours 06/17/19 06/17/19 06/17/19 06/17/19 08:00 11:00 13:06 15:00 Temp 97.8 97.9 97.8 97.9 Pulse 101 101 Resp 20 20 B/P (MAP) 149/104 (119) 149/104 (119) Pulse Ox 96 96 O2 Delivery Nasal Cannula Nasal Cannula Nasal Cannula Nasal Cannula O2 Flow Rate 2.0 2.0 2.0 06/17/19 06/17/19 06/17/19 06/17/19 18:25 19:00 19:25 20:20 Temp 97.7 97.7 Pulse 99 Resp 20 B/P (MAP) 150/87 (108) Pulse Ox 92 O2 Delivery Nasal Cannula Nasal Cannula Nasal Cannula Nasal Cannula O2 Flow Rate 2.0 06/17/19 06/18/19 06/18/19 06/18/19 23:06 00:01 01:01 03:06 Temp 97.7 97.7 97.7 97.7 Pulse 92 96 Resp 20 22 18 20 B/P (MAP) 178/108 (131) 156/103 (120) Pulse Ox 92 95 O2 Delivery Nasal Cannula Nasal Cannula Nasal Cannula Nasal Cannula 06/18/19 06/18/19 06/18/19 06/18/19 06:06 07:00 07:06 08:24 Temp 97.9 97.9 Pulse 91 91 Resp 18 B/P (MAP) 154/112 (126) 154/112 Pulse Ox 93 O2 Delivery Nasal Cannula Nasal Cannula Nasal Cannula O2 Flow Rate 2.0 06/18/19 08:24 Pulse 91 B/P (MAP) 154/112 Intake and Output 06/17/19 06/18/19 06/18/19 17:00 01:00 09:00 Intake Total 50 ml 350 ml Output Total 400 ml 400 ml 1400 ml Balance -400 ml -350 ml -1050 ml MARIA ELENA MATUTE MD Jun 18, 2019 09:57
--- NOTE | 2019-06-18 10:28 | PDOC ---
Infectious Disease Note Subjective Subjective Doing alright Loose stools Appetite good Denies N/V/cramps/F/C ROS ROS per HPI Vital Sign Vital Signs Vital Signs Date Time Temp Pulse Resp B/P (MAP) Pulse Ox O2 Delivery O2 Flow Rate FiO2 06/18/19 08:24 91 154/112 06/18/19 08:00 Nasal Cannula 06/18/19 07:00 97.9 18 93 2.0 97.9 Physical Exam PHYSICAL EXAM GENERAL: Propped up in bed, alert, eating and watching TV HEENT: Oral cavity: Pharynx pink and moist. NECK: Supple. LUNGS: Diminished aeration at the bases. Nonlabored. HEART: Distant heart sounds. ABDOMEN: Obese, soft, nontender with bowel sounds present. EXTREMITIES: Chronic venous changes in lower extremities bilaterally. Left leg iss less red and the swelling is going down, + wrinkles. blisters dried up, no drainage SKIN: warm to touch NEUROLOGIC: Alert and answering questions appropriately. PIV Labs Micro ANAEROBIC RES 1 Final No anaerobic growth in 72 hours. AEROBIC RES 1 Final Gram negative rods Providencia rettgeri AEROBIC RES 2 Final Beta hemolytic Streptococcus, group G MICS are expressed in micrograms per mL Antibiotic RSLT#1 RSLT#2 Ampicillin R =R Cefazolin R>=64 Cefepime S<=0.12 Ceftriaxone S<=0.25 Cefuroxime S<=1 Ciprofloxacin S<=0.25 Gentamicin S<=1 Imipenem S =1 Levofloxacin S<=0.12 Meropenem S<=0.25 Piperacillin/Tazobactam S<=4 Tetracycline R>=16 Tobramycin S<=1 Objective Assessment Severe cellulitis with large bullae left lower extremitiy - Group G strep and Providencia Fever - resolved Leukocytosis Yeast in groin - improved Transaminits Super morbid obesity Exposure Influenza Chronic heart failure Loose stools Plan Plan of Care Levaquin times 10 days (started 06/16) D/c Zosyn Probiotics Local wound care Anticipating discharge soon D/w nursing Patient seen and examined. Chart reviewed in detail. Case discussed with [employer]. Agree with above plan. LAURI BELL APRN Jun 18, 2019 10:28 BIJAN CHIRINOS MD Jun 18, 2019 19:40
[2019-06-18 11:00] VITALS: BP 152/93
[2019-06-18 15:00] VITALS: BP 154/102
[2019-06-18 19:05] VITALS: BP 139/87
[2019-06-18 23:05] VITALS: BP 158/99
[2019-06-19] MEDS: diphenhydrAMINE HCL 25 MG CAPSULE PO PRN (01:28)
[2019-06-19] MEDS: oxyCODONE/APAP 5/325 1 TAB TABLET PO PRN ×4 (01:29→21:25)
[2019-06-19 03:03] VITALS: BP 138/89
[2019-06-19] MEDS: HEPARIN for SUB-Q USE 5,000 UNIT/ML VIAL. SQ SCH ×3 (06:17→21:37)
[2019-06-19 07:00] VITALS: BP 150/101
[2019-06-19] MEDS: POTASSIUM BICARB 20 MEQ EFFERVESCENT TABLET. PO SCH ×2 (09:27→21:25)
[2019-06-19] MEDS: LACTOBACILLUS RHAMNOSUS GG 1 CAPSULE. PO SCH ×2 (09:27→21:25)
[2019-06-19] MEDS: FUROSEMIDE 40 MG TABLET. PO SCH (09:27)
[2019-06-19] MEDS: amLODIPine BESYLATE 5 MG TABLET PO SCH (09:27)
--- NOTE | 2019-06-19 10:11 | PDOC ---
PROGRESS NOTES Chief Complaint Chief Complaint discharge dx Severe cellulitis with large bullae left lower extremitiy Fever resolved Leukocytosis 15 Yeast in groin Transaminits Super morbid obesity BMI 84 - Weight loss pgm /bariatric group appt jun 2019 Exposure Influenza Chronic heart failure Loose stools JASON, undiagnosed hypoxia at rest 86% , desat study abn, needs rehab bed MAR WILL ACCEPT IF INSURANCE APPROVES Levaquin times 10 days (started 06/16) History of Present Illness History of Present Illness Still on IV abx per ID Cx cooking Also requested IV instead of PO zyvox from ID PLAN: lasix PO WIll dc on PO abx once shifted by ID - once cx final out needs rehab insurance approval NEeds to lose weight - has appt Jun bariatric team HOme per PTeval NEeds polysomnogram as OP HOme O2 rx on chart Continue Zosyn , can be changed to po levaquin for d/c 10 days ok with id 26 MIN PT EXAM, CHART REVIEW, > 50% OF TIME SPENT WITH EXAM, CHART REVIEW, PT CARE COORDINATION Vitals Vitals Vital Signs Date Time Temp Pulse Resp B/P (MAP) Pulse Ox O2 Delivery O2 Flow Rate FiO2 06/19/19 09:27 105 150/101 06/19/19 07:09 Nasal Cannula 2.0 06/19/19 07:00 97.7 20 96 97.7 Physical Exam Physical Exam GENERAL: Propped up in bed, alert, eating and watching TV HEENT: Oral cavity: Pharynx pink and moist. NECK: Supple. LUNGS: Diminished aeration at the bases. Nonlabored. HEART: Distant heart sounds. ABDOMEN: Obese, soft, nontender with bowel sounds present. EXTREMITIES: Chronic venous changes in lower extremities bilaterally. Left leg iss less red and the swelling is going down, + wrinkles. blisters dried up, no drainage SKIN: warm to touch NEUROLOGIC: Alert and answering questions appropriately. PIV General: Alert, Oriented X3, Cooperative, No acute distress Heart: Regular rate, Other (distant heart sounds) Lungs: Clear Abdomen: Normal bowel sounds, Soft, No tenderness Extremities: No cyanosis, Other (chronic lymphedema with LLE cellulitis) Skin: Other (LE venous dermatitis; blisters to left calf dark erythema from below knee to ankle with pitting edema) Assessment and Plan Assessmemt and Plan Problems Medical Problems: (1) Left leg cellulitis Status: Acute Comment Review of Relevant I have reviewed the following items beny (where applicable) has been applied. Labs Microbiology 06/12/19 Anaerobic/Aerobic Culture - Final, Complete 06/12/19 Anaerobic Culture Result 1 (MAJOR) - Final, Complete 06/12/19 Aerobic Culture - Final, Complete 06/12/19 Aerobic Culture Result 1 (MAJOR) - Final, Complete 06/12/19 Gram Stain - Final, Complete 06/12/19 Gram Stain Result 1 (MAJOR) - Final, Complete 06/12/19 Gram Stain Result 2 (MAJOR) - Final, Complete 06/08/19 Blood Culture - Final, Complete NO GROWTH AFTER 5 DAYS Medications Current Medications Ibuprofen (Motrin) 800 mg 1X ONCE PO Last administered on 06/08/19at 19:56; Start 06/08/19 at 20:00; Stop 06/08/19 at 20:01; Status DC Acetaminophen (Tylenol) 1,000 mg 1X ONCE PO Last administered on 06/08/19 19:56; Start 06/08/19 at 20:00; Stop 06/08/19 at 20:01; Status DC Vancomycin HCl 250 ml @ 250 mls/hr 1X ONCE IV ; Start 06/08/19 at 18:45; Stop 06/08/19 at 19:44; Status UNV Cefazolin Sodium/ Dextrose 50 ml @ 100 mls/hr 1X ONCE IV Last administered on 06/08/19at 20:02; Start 06/08/19 at 20:00; Stop 06/08/19 at 20:29; Status DC Sodium Chloride 1,000 ml @ 1,000 mls/hr 1X ONCE IV Last administered on 06/08/19at 20:02; Start 06/08/19 at 20:00; Stop 06/08/19 at 20:59; Status DC Vancomycin HCl 2 gm/Sodium Chloride 500 ml @ 250 mls/hr 1X ONCE IV Last administered on 06/08/19at 20:43; Start 06/08/19 at 20:00; Stop 06/08/19 at 21:59; Status DC Ondansetron HCl (Zofran) 4 mg PRN Q8HRS PRN IV NAUSEA/VOMITING Last administered on 06/09/19at 11:15; Start 06/08/19 at 20:15; Stop 06/09/19 at 20:14; Status DC Morphine Sulfate (Morphine Sulfate) 4 mg PRN Q6HRS PRN IV PAIN Last administered on 06/09/19at 11:16; Start 06/08/19 at 20:15; Stop 06/09/19 at 20:14; Status DC Cefazolin Sodium/ Dextrose 50 ml @ 100 mls/hr Q8HRS IV Last administered on 06/10/19at 06:36; Start 06/09/19 at 06:00; Stop 06/10/19 at 12:42; Status DC Vancomycin HCl (Vanco Per Pharmacy) 1 each PRN DAILY PRN MC SEE COMMENTS Last administered on 06/10/19at 11:12; Start 06/08/19 at 20:30; Stop 06/10/19 at 12:42; Status DC Vancomycin HCl 1.5 gm/Sodium Chloride 500 ml @ 250 mls/hr Q8H IV Last administered on 06/08/19at 05:00; Start 06/08/19 at 05:00; Stop 06/08/19 at 21:21; Status DC Vancomycin HCl (Vancomycin Trough Level) 1 each 1X ONCE MC Last administered on 06/09/19at 20:30; Start 06/09/19 at 20:30; Stop 06/09/19 at 20:31; Status DC Vancomycin HCl 1.5 gm/Sodium Chloride 500 ml @ 250 mls/hr Q8H IV Last administered on 06/10/19at 04:15; Start 06/09/19 at 05:00; Stop 06/10/19 at 12:42; Status DC Lactobacillus Rhamnosus (Culturelle) 1 cap BID PO Last administered on 06/19/19at 09:27; Start 06/09/19 at 21:00 Heparin Sodium (Porcine) (Heparin Sodium) 5,000 unit Q8HRS SQ Last administered on 06/19/19at 06:17; Start 06/09/19 at 22:00 Furosemide (Lasix) 40 mg DAILY PO Last administered on 06/19/19at 09:27; Start 06/10/19 at 09:00 Potassium Chloride (Klor-Con) 10 meq DAILYWBKFT PO ; Start 06/10/19 at 08:00; Stop 06/09/19 at 16:03; Status DC Potassium Chloride (Klor-Con) 20 meq 1X ONCE PO ; Start 06/09/19 at 15:15; Stop 06/09/19 at 15:59; Status DC Perflutren Protein Type A Microsphe (Optison) 0.66 mg 1X ONCE IV ; Start 06/09/19 at 15:45; Stop 06/09/19 at 15:46; Status DC Perflutren Protein Type A Microsphe (Optison) 0.66 mg STK-MED ONCE IV ; Start 06/09/19 at 15:47; Stop 06/09/19 at 15:47; Status DC Potassium Bicarbonate (Potassium Effervescent Tablet) 20 meq 1X ONCE PO Last administered on 06/09/19at 16:17; Start 06/09/19 at 16:00; Stop 06/09/19 at 16:05; Status DC Potassium Bicarbonate (Potassium Effervescent Tablet) 10 meq DAILY ONCE PO Last administered on 06/10/19at 10:33; Start 06/10/19 at 09:00; Stop 06/10/19 at 09:01; Status DC Simethicone (Gas-X) 40 mg PRN Q4HRS PRN PO GAS / BLOATING Last administered on 06/10/19at 01:14; Start 06/09/19 at 23:45 Daptomycin 1000 mg/Sodium Chloride 50 ml @ 100 mls/hr Q24H IV Last administered on 06/12/19at 14:29; Start 06/10/19 at 13:00; Stop 06/13/19 at 10:52; Status DC Linezolid (Zyvox) 600 mg BID PO Last administered on 06/12/19at 20:56; Start 06/10/19 at 21:00; Stop 06/13/19 at 11:13; Status DC Piperacillin Sod/ Tazobactam Sod 3.375 gm/Sodium Chloride 50 ml @ 100 mls/hr Q6HRS IV Last administered on 06/18/19at 05:35; Start 06/10/19 at 13:00; Stop 06/18/19 at 10:29; Status DC Micafungin Sodium 100 mg/Dextrose 100 ml @ 100 mls/hr Q24H IV Last administered on 06/12/19at 15:25; Start 06/10/19 at 14:00; Stop 06/13/19 at 10:52; Status DC Potassium Chloride (Klor-Con) 40 meq 1X ONCE PO Last administered on 18:08; Start 06/10/19 at 15:30; Stop 06/10/19 at 15:38; Status DC Potassium Chloride (Klor-Con) 20 meq DAILYWBKFT PO Last administered on 06/13/19at 10:14; Start 06/11/19 at 08:00; Stop 06/13/19 at 11:52; Status DC Hydromorphone HCl (Dilaudid) 1 mg 1X ONCE IV ; Start 06/10/19 at 19:00; Stop 06/10/19 at 19:01; Status Cancel Hydromorphone HCl (Dilaudid) 1 mg PRN Q4HRS PRN IV PAIN Last administered on 06/15/19at 18:37; Start 06/10/19 at 19:00 Oxycodone/ Acetaminophen (Percocet 5/325) 1 tab PRN Q4HRS PRN PO PAIN Last administered on 06/19/19 06:09; Start 06/12/19 at 10:30 Ondansetron HCl (Zofran) 4 mg PRN Q6HRS PRN IVP NAUSEA/VOMITING Last administered on 06/15/19at 12:15; Start 06/12/19 at 10:30 Calcium Carbonate/ Glycine (Tums) 500 mg PRN AFTMEALHC PRN PO INDIGESTION; Start 06/12/19 at 10:30 Zolpidem Tartrate (Ambien) 5 mg PRN QHS PRN PO INSOMNIA Last administered on 06/13/19at 22:20; Start 06/12/19 at 10:30 Loperamide HCl (Imodium) 2 mg PRN Q15MIN PRN PO DIARRHEA; Start 06/12/19 at 10:30 Linezolid/Dextrose 300 ml @ 300 mls/hr Q12HR IV Last administered on 06/14/19at 09:37; Start 06/13/19 at 21:00; Stop 06/14/19 at 10:31; Status DC Potassium Bicarbonate (Potassium Effervescent Tablet) 20 meq BID PO Last administered on 06/19/19 09:27; Start 06/13/19 at 21:00 Guaifenesin (Robitussin Dm) 10 ml PRN Q6HRS PRN PO COUGH Last administered on 06/15/19at 23:45; Start 06/13/19 at 18:00 Diphenhydramine HCl (Benadryl) 25 mg PRN QHS PRN PO INSOMNIA Last administered on 06/19/19at 01:28; Start 06/14/19 at 14:45 Levofloxacin (Levaquin) 750 mg DAILY06 PO Last administered on 06/19/19at 06:09; Start 06/16/19 at 09:00 Clonidine HCl (Catapres) 0.1 mg 1X ONCE PO Last administered on 06/18/19 08:24; Start 06/18/19 at 08:15; Stop 06/18/19 at 08:16; Status DC Amlodipine Besylate (Norvasc) 5 mg DAILY PO Last administered on 06/19/19 09:27; Start 06/18/19 at 09:00 Active Scripts Active Reported [water pill] Turmeric (Turmeric Root Extract) 538 Mg Capsule 538 Mg PO DAILY Vitals/I & O Vital Sign - Last 24 Hours 06/18/19 06/18/19 06/18/19 06/18/19 11:00 14:29 15:00 15:29 Temp 97.6 97.8 97.6 97.8 Pulse 94 95 Resp 16 14 B/P (MAP) 152/93 (112) 154/102 (119) Pulse Ox 91 93 O2 Delivery Nasal Cannula Nasal Cannula Nasal Cannula Nasal Cannula O2 Flow Rate 2.0 2.0 06/18/19 06/18/19 06/18/19 06/18/19 18:41 19:05 19:41 20:20 Temp 98.8 98.8 Pulse 103 Resp 18 20 B/P (MAP) 139/87 (104) Pulse Ox 94 O2 Delivery Room Air Room Air Nasal Cannula Nasal Cannula O2 Flow Rate 2.0 06/18/19 06/19/19 06/19/19 06/19/19 23:05 01:29 02:29 03:03 Temp 97.8 98.6 97.8 98.6 Pulse 107 96 Resp 19 21 20 18 B/P (MAP) 158/99 (118) 138/89 (105) Pulse Ox 96 95 O2 Delivery Nasal Cannula Nasal Cannula Nasal Cannula Room Air O2 Flow Rate 2.0 06/19/19 06/19/19 06/19/19 06/19/19 06:09 07:00 07:09 09:27 Temp 97.7 97.7 Pulse 105 105 Resp 21 20 B/P (MAP) 150/101 (117) 150/101 Pulse Ox 96 O2 Delivery Nasal Cannula Nasal Cannula Nasal Cannula O2 Flow Rate 2.0 2.0 Intake and Output 06/18/19 06/18/19 06/19/19 15:00 23:00 07:00 Intake Total 1300 ml 240 ml 840 ml Output Total 1375 ml 750 ml 1600 ml Balance -75 ml -510 ml -760 ml MARIA ELENA MATUTE MD Jun 19, 2019 10:11
[2019-06-19 11:00] VITALS: BP 160/94
--- NOTE | 2019-06-19 11:38 | PDOC ---
Infectious Disease Note Subjective: Subjective Doing alright soft stools attributes it to OJ Appetite good Denies N/V/cramps/F/C Vital Signs: Vital Signs Vital Signs Date Time Temp Pulse Resp B/P (MAP) Pulse Ox O2 Delivery O2 Flow Rate FiO2 06/19/19 11:00 97.4 91 20 160/94 (116) 94 Nasal Cannula 2.0 97.4 Physical Exam: PHYSICAL EXAM GENERAL: Propped up in bed, alert, eating and watching TV HEENT: Oral cavity: Pharynx pink and moist. NECK: Supple. LUNGS: Diminished aeration at the bases. Nonlabored. HEART: Distant heart sounds. ABDOMEN: Obese, soft, nontender with bowel sounds present. EXTREMITIES: Chronic venous changes in lower extremities bilaterally. Left leg iss less red and the swelling is going down, + wrinkles. blisters dried up, no drainage SKIN: warm to touch NEUROLOGIC: Alert and answering questions appropriately. PIV Medications: Inpatient Meds: Current Medications Medications (Trade) Dose Ordered Sig/Dina Start Time Stop Time Status Last Admin Dose Admin Acetaminophen (Tylenol) 1,000 mg 1X ONCE 06/08/19 20:00 06/08/19 20:01 DC 06/08/19 19:56 1,000 MG Amlodipine Besylate (Norvasc) 5 mg DAILY 06/18/19 09:00 06/19/19 09:27 5 MG Calcium Carbonate/ Glycine (Tums) 500 mg PRN AFTMEALHC PRN 06/12/19 10:30 Cefazolin Sodium/ Dextrose 50 ml @ 100 mls/hr Q8HRS 06/09/19 06:00 06/10/19 12:42 DC 06/10/19 06:36 100 MLS/HR Clonidine HCl (Catapres) 0.1 mg 1X ONCE 06/18/19 08:15 06/18/19 08:16 DC 06/18/19 08:24 0.1 MG Daptomycin 1000 mg/Sodium Chloride 50 ml @ 100 mls/hr Q24H 06/10/19 13:00 06/13/19 10:52 DC 06/12/19 14:29 100 MLS/HR Diphenhydramine HCl (Benadryl) 25 mg PRN QHS PRN 06/14/19 14:45 06/19/19 01:28 25 MG Furosemide (Lasix) 40 mg DAILY 06/10/19 09:00 06/19/19 09:27 40 MG Guaifenesin (Robitussin Dm) 10 ml PRN Q6HRS PRN 06/13/19 18:00 06/15/19 23:45 10 ML Heparin Sodium (Porcine) (Heparin Sodium) 5,000 unit Q8HRS 06/09/19 22:00 06/19/19 06:17 5,000 UNIT Hydromorphone HCl (Dilaudid) 1 mg PRN Q4HRS PRN 06/10/19 19:00 06/15/19 18:37 1 MG Ibuprofen (Motrin) 800 mg 1X ONCE 06/08/19 20:00 06/08/19 20:01 DC 06/08/19 19:56 800 MG Lactobacillus Rhamnosus (Culturelle) 1 cap BID 06/09/19 21:00 06/19/19 09:27 1 CAP Levofloxacin (Levaquin) 750 mg DAILY06 06/16/19 09:00 06/19/19 06:09 750 MG Linezolid (Zyvox) 600 mg BID 06/10/19 21:00 06/13/19 11:13 DC 06/12/19 20:56 600 MG Linezolid/Dextrose 300 ml @ 300 mls/hr Q12HR 06/13/19 21:00 06/14/19 10:31 DC 06/14/19 09:37 300 MLS/HR Loperamide HCl (Imodium) 2 mg PRN Q15MIN PRN 06/12/19 10:30 Micafungin Sodium 100 mg/Dextrose 100 ml @ 100 mls/hr Q24H 06/10/19 14:00 06/13/19 10:52 DC 06/12/19 15:25 100 MLS/HR Morphine Sulfate (Morphine Sulfate) 4 mg PRN Q6HRS PRN 06/08/19 20:15 06/09/19 20:14 DC 06/09/19 11:16 4 MG Ondansetron HCl (Zofran) 4 mg PRN Q6HRS PRN 06/12/19 10:30 06/15/19 12:15 4 MG Oxycodone/ Acetaminophen (Percocet 5/325) 1 tab PRN Q4HRS PRN 06/12/19 10:30 06/19/19 06:09 1 TAB Perflutren Protein Type A Microsphe (Optison) 0.66 mg STK-MED ONCE 06/09/19 15:47 06/09/19 15:47 DC Piperacillin Sod/ Tazobactam Sod 3.375 gm/Sodium Chloride 50 ml @ 100 mls/hr Q6HRS 06/10/19 13:00 06/18/19 10:29 DC 06/18/19 05:35 100 MLS/HR Potassium Bicarbonate (Potassium Effervescent Tablet) 20 meq BID 06/13/19 21:00 06/19/19 09:27 20 MEQ Potassium Chloride (Klor-Con) 20 meq DAILYWBKFT 06/11/19 08:00 06/13/19 11:52 DC 06/13/19 10:14 20 MEQ Simethicone (Gas-X) 40 mg PRN Q4HRS PRN 06/09/19 23:45 06/10/19 01:14 40 MG Sodium Chloride 1,000 ml @ 1,000 mls/hr 1X ONCE 06/08/19 20:00 06/08/19 20:59 DC 06/08/19 20:02 1,000 MLS/HR Vancomycin HCl (Vanco Per Pharmacy) 1 each PRN DAILY PRN 06/08/19 20:30 06/10/19 12:42 DC 06/10/19 11:12 1 EACH Vancomycin HCl (Vancomycin Trough Level) 1 each 1X ONCE 06/09/19 20:30 06/09/19 20:31 DC 06/09/19 20:30 1 EACH Vancomycin HCl 1.5 gm/Sodium Chloride 500 ml @ 250 mls/hr Q8H 06/09/19 05:00 06/10/19 12:42 DC 06/10/19 04:15 250 MLS/HR Vancomycin HCl 2 gm/Sodium Chloride 500 ml @ 250 mls/hr 1X ONCE 06/08/19 20:00 06/08/19 21:59 DC 06/08/19 20:43 250 MLS/HR Zolpidem Tartrate (Ambien) 5 mg PRN QHS PRN 06/12/19 10:30 06/13/19 22:20 5 MG Objective: Assessment: Severe cellulitis with large bullae left lower extremitiy - Group G strep and Providencia Fever - resolved Leukocytosis Yeast in groin - improved Transaminits Super morbid obesity Exposure Influenza Chronic heart failure Loose stools Plan: Plan of Care Levaquin times 10 days (started 06/16) Probiotics Local wound care Anticipating discharge soon D/w nursing CASSIDY POPE MD Jun 19, 2019 11:38
--- NOTE | 2019-06-19 14:22 | NUR ---
SW following. Discussed with RN, pt accepted at [facility] [place], pending insurance auth. Pt's insurance is [facility] [employer] out [facility] which is why the insurance auth may be taking so long. RN notified. KARUNA will continue to follow.
[2019-06-19 15:00] VITALS: BP 157/97
[2019-06-19 19:00] VITALS: BP 155/90
[2019-06-19 23:00] VITALS: BP 160/91
[2019-06-20 03:06] VITALS: BP 165/84
[2019-06-20 05:13] LABS: BASO % 0 % (0-3); EOS # 0.3 x10^3/uL (0.0-0.7); EOS % 3 % (0-3); HEMATOCRIT 38.8 % (39.0-53.0); HEMOGLOBIN 12.7 g/dL (13.0-17.5); LYMPH # 1.8 x10^3/uL (1.0-4.8); LYMPH % 20 % (24-48); MEAN CORPUSCULAR HEMOGLOBIN 28 pg (25-35); MEAN CORPUSCULAR HGB CONC 33 g/dL (31-37); MEAN CORPUSCULAR VOLUME 84 fL (79-100); MONO # 0.8 x10^3/uL (0.0-1.1); MONO % 9 % (0-9); NEUT # 6.2 x10^3/uL (1.8-7.7); NEUT % 68 % (31-73); PLATELET COUNT 354 x10^3/uL (140-400); RED BLOOD COUNT 4.61 x10^6/uL (4.30-5.70); RED CELL DISTRIBUTION WIDTH 14.6 % (11.5-14.5); WHITE BLOOD COUNT 9.1 x10^3/uL (4.0-11.0)
[2019-06-20 05:35] LABS: ALBUMIN 2.2 g/dL (3.4-5.0); ALBUMIN/GLOBULIN RATIO 0.4 (1.0-1.7); CALCIUM 9.1 mg/dL (8.5-10.1); CREATININE 0.9 mg/dL (0.7-1.3); GFR 89.3; POTASSIUM 4.5 mmol/L (3.5-5.1); TOTAL BILIRUBIN 0.5 mg/dL (0.2-1.0); TOTAL PROTEIN 8.1 g/dL (6.4-8.2)
[2019-06-20] MEDS: oxyCODONE/APAP 5/325 1 TAB TABLET PO PRN ×2 (05:41→17:30)
[2019-06-20] MEDS: HEPARIN for SUB-Q USE 5,000 UNIT/ML VIAL. SQ SCH ×2 (05:47→14:50)
[2019-06-20 07:00] VITALS: BP 133/86
[2019-06-20] MEDS: LACTOBACILLUS RHAMNOSUS GG 1 CAPSULE. PO SCH (09:01)
[2019-06-20] MEDS: amLODIPine BESYLATE 5 MG TABLET PO SCH (09:02)
[2019-06-20] MEDS: POTASSIUM BICARB 20 MEQ EFFERVESCENT TABLET. PO SCH (09:02)
[2019-06-20] MEDS: FUROSEMIDE 40 MG TABLET. PO SCH (09:02)
--- NOTE | 2019-06-20 09:21 | PDOC ---
PROGRESS NOTES Chief Complaint Chief Complaint discharge dx Severe cellulitis with large bullae left lower extremitiy Fever resolved Leukocytosis 15 Yeast in groin Transaminits Super morbid obesity BMI 84 - Weight loss pgm /bariatric group appt jun 2019 Exposure Influenza Chronic heart failure Loose stools JASON, undiagnosed hypoxia at rest 86% , desat study abn, needs rehab bed MAR WILL ACCEPT IF INSURANCE APPROVES Levaquin times 10 days (started 06/16) 06/20 D/C PLANNING 33 MIN History of Present Illness History of Present Illness Still on IV abx per ID Cx cooking Also requested IV instead of PO zyvox from ID PLAN: lasix PO WIll dc on PO abx once shifted by ID - once cx final out needs rehab insurance approval NEeds to lose weight - has appt Jun bariatric team HOme per PTeval NEeds polysomnogram as OP HOme O2 rx on chart Continue Zosyn , can be changed to po levaquin for d/c 10 days ok with id 26 MIN PT EXAM, CHART REVIEW, > 50% OF TIME SPENT WITH EXAM, CHART REVIEW, PT CARE COORDINATION Vitals Vitals Vital Signs Date Time Temp Pulse Resp B/P (MAP) Pulse Ox O2 Delivery O2 Flow Rate FiO2 06/20/19 09:02 98 133/86 06/20/19 07:00 97.7 18 96 Nasal Cannula 2.0 97.7 Physical Exam Physical Exam GENERAL: Propped up in bed, alert, eating and watching TV HEENT: Oral cavity: Pharynx pink and moist. NECK: Supple. LUNGS: Diminished aeration at the bases. Nonlabored. HEART: Distant heart sounds. ABDOMEN: Obese, soft, nontender with bowel sounds present. EXTREMITIES: Chronic venous changes in lower extremities bilaterally. Left leg iss less red and the swelling is going down, + wrinkles. blisters dried up, no drainage SKIN: warm to touch NEUROLOGIC: Alert and answering questions appropriately. PIV General: Alert, Oriented X3, Cooperative, No acute distress Heart: Regular rate, Other (distant heart sounds) Lungs: Clear Abdomen: Normal bowel sounds, Soft, No tenderness Extremities: No clubbing, No cyanosis, Other (chronic lymphedema with LLE cellulitis) Skin: Other (LE venous dermatitis; blisters to left calf dark erythema from below knee to ankle with pitting edema) Labs LABS Laboratory Tests Test 06/20/19 04:30 White Blood Count 9.1 x10^3/uL (4.0-11.0) Red Blood Count 4.61 x10^6/uL (4.30-5.70) Hemoglobin 12.7 g/dL (13.0-17.5) Hematocrit 38.8 % (39.0-53.0) Mean Corpuscular Volume 84 fL (79-100) Mean Corpuscular Hemoglobin 28 pg (25-35) Mean Corpuscular Hemoglobin Concent 33 g/dL (31-37) Red Cell Distribution Width 14.6 % (11.5-14.5) Platelet Count 354 x10^3/uL (140-400) Neutrophils (%) (Auto) 68 % (31-73) Lymphocytes (%) (Auto) 20 % (24-48) Monocytes (%) (Auto) 9 % (0-9) Eosinophils (%) (Auto) 3 % (0-3) Basophils (%) (Auto) 0 % (0-3) Neutrophils # (Auto) 6.2 x10^3/uL (1.8-7.7) Lymphocytes # (Auto) 1.8 x10^3/uL (1.0-4.8) Monocytes # (Auto) 0.8 x10^3/uL (0.0-1.1) Eosinophils # (Auto) 0.3 x10^3/uL (0.0-0.7) Basophils # (Auto) 0.0 x10^3/uL (0.0-0.2) Sodium Level 138 mmol/L (136-145) Potassium Level 4.5 mmol/L (3.5-5.1) Chloride Level 101 mmol/L (98-107) Carbon Dioxide Level 35 mmol/L (21-32) Anion Gap 2 (6-14) Blood Urea Nitrogen 15 mg/dL (8-26) Creatinine 0.9 mg/dL (0.7-1.3) Estimated GFR (Cockcroft-Gault) 89.3 BUN/Creatinine Ratio 17 (6-20) Glucose Level 113 mg/dL (70-99) Calcium Level 9.1 mg/dL (8.5-10.1) Total Bilirubin 0.5 mg/dL (0.2-1.0) Aspartate Amino Transf (AST/SGOT) 20 U/L (15-37) Alanine Aminotransferase (ALT/SGPT) 28 U/L (16-63) Alkaline Phosphatase 55 U/L (46-116) Total Protein 8.1 g/dL (6.4-8.2) Albumin 2.2 g/dL (3.4-5.0) Albumin/Globulin Ratio 0.4 (1.0-1.7) Assessment and Plan Assessmemt and Plan Problems Medical Problems: (1) Left leg cellulitis Status: Acute Comment Review of Relevant I have reviewed the following items beny (where applicable) has been applied. Labs Laboratory Tests Test 06/20/19 04:30 White Blood Count 9.1 x10^3/uL (4.0-11.0) Red Blood Count 4.61 x10^6/uL (4.30-5.70) Hemoglobin 12.7 g/dL (13.0-17.5) Hematocrit 38.8 % (39.0-53.0) Mean Corpuscular Volume 84 fL (79-100) Mean Corpuscular Hemoglobin 28 pg (25-35) Mean Corpuscular Hemoglobin Concent 33 g/dL (31-37) Red Cell Distribution Width 14.6 % (11.5-14.5) Platelet Count 354 x10^3/uL (140-400) Neutrophils (%) (Auto) 68 % (31-73) Lymphocytes (%) (Auto) 20 % (24-48) Monocytes (%) (Auto) 9 % (0-9) Eosinophils (%) (Auto) 3 % (0-3) Basophils (%) (Auto) 0 % (0-3) Neutrophils # (Auto) 6.2 x10^3/uL (1.8-7.7) Lymphocytes # (Auto) 1.8 x10^3/uL (1.0-4.8) Monocytes # (Auto) 0.8 x10^3/uL (0.0-1.1) Eosinophils # (Auto) 0.3 x10^3/uL (0.0-0.7) Basophils # (Auto) 0.0 x10^3/uL (0.0-0.2) Sodium Level 138 mmol/L (136-145) Potassium Level 4.5 mmol/L (3.5-5.1) Chloride Level 101 mmol/L (98-107) Carbon Dioxide Level 35 mmol/L (21-32) Anion Gap 2 (6-14) Blood Urea Nitrogen 15 mg/dL (8-26) Creatinine 0.9 mg/dL (0.7-1.3) Estimated GFR (Cockcroft-Gault) 89.3 BUN/Creatinine Ratio 17 (6-20) Glucose Level 113 mg/dL (70-99) Calcium Level 9.1 mg/dL (8.5-10.1) Total Bilirubin 0.5 mg/dL (0.2-1.0) Aspartate Amino Transf (AST/SGOT) 20 U/L (15-37) Alanine Aminotransferase (ALT/SGPT) 28 U/L (16-63) Alkaline Phosphatase 55 U/L (46-116) Total Protein 8.1 g/dL (6.4-8.2) Albumin 2.2 g/dL (3.4-5.0) Albumin/Globulin Ratio 0.4 (1.0-1.7) Laboratory Tests Test 06/20/19 04:30 White Blood Count 9.1 x10^3/uL (4.0-11.0) Red Blood Count 4.61 x10^6/uL (4.30-5.70) Hemoglobin 12.7 g/dL (13.0-17.5) Hematocrit 38.8 % (39.0-53.0) Mean Corpuscular Volume 84 fL (79-100) Mean Corpuscular Hemoglobin 28 pg (25-35) Mean Corpuscular Hemoglobin Concent 33 g/dL (31-37) Red Cell Distribution Width 14.6 % (11.5-14.5) Platelet Count 354 x10^3/uL (140-400) Neutrophils (%) (Auto) 68 % (31-73) Lymphocytes (%) (Auto) 20 % (24-48) Monocytes (%) (Auto) 9 % (0-9) Eosinophils (%) (Auto) 3 % (0-3) Basophils (%) (Auto) 0 % (0-3) Neutrophils # (Auto) 6.2 x10^3/uL (1.8-7.7) Lymphocytes # (Auto) 1.8 x10^3/uL (1.0-4.8) Monocytes # (Auto) 0.8 x10^3/uL (0.0-1.1) Eosinophils # (Auto) 0.3 x10^3/uL (0.0-0.7) Basophils # (Auto) 0.0 x10^3/uL (0.0-0.2) Sodium Level 138 mmol/L (136-145) Potassium Level 4.5 mmol/L (3.5-5.1) Chloride Level 101 mmol/L (98-107) Carbon Dioxide Level 35 mmol/L (21-32) Anion Gap 2 (6-14) Blood Urea Nitrogen 15 mg/dL (8-26) Creatinine 0.9 mg/dL (0.7-1.3) Estimated GFR (Cockcroft-Gault) 89.3 BUN/Creatinine Ratio 17 (6-20) Glucose Level 113 mg/dL (70-99) Calcium Level 9.1 mg/dL (8.5-10.1) Total Bilirubin 0.5 mg/dL (0.2-1.0) Aspartate Amino Transf (AST/SGOT) 20 U/L (15-37) Alanine Aminotransferase (ALT/SGPT) 28 U/L (16-63) Alkaline Phosphatase 55 U/L (46-116) Total Protein 8.1 g/dL (6.4-8.2) Albumin 2.2 g/dL (3.4-5.0) Albumin/Globulin Ratio 0.4 (1.0-1.7) Microbiology 06/12/19 Anaerobic/Aerobic Culture - Final, Complete 06/12/19 Anaerobic Culture Result 1 (MAJOR) - Final, Complete 06/12/19 Aerobic Culture - Final, Complete 06/12/19 Aerobic Culture Result 1 (MAJOR) - Final, Complete 06/12/19 Gram Stain - Final, Complete 06/12/19 Gram Stain Result 1 (MAJOR) - Final, Complete 06/12/19 Gram Stain Result 2 (MAJOR) - Final, Complete 06/08/19 Blood Culture - Final, Complete NO GROWTH AFTER 5 DAYS Medications Current Medications Ibuprofen (Motrin) 800 mg 1X ONCE PO Last administered on 06/08/19at 19:56; Start 06/08/19 at 20:00; Stop 06/08/19 at 20:01; Status DC Acetaminophen (Tylenol) 1,000 mg 1X ONCE PO Last administered on 06/08/19at 19:56; Start 06/08/19 at 20:00; Stop 06/08/19 at 20:01; Status DC Vancomycin HCl 250 ml @ 250 mls/hr 1X ONCE IV ; Start 06/08/19 at 18:45; Stop 06/08/19 at 19:44; Status UNV Cefazolin Sodium/ Dextrose 50 ml @ 100 mls/hr 1X ONCE IV Last administered on 06/08/19at 20:02; Start 06/08/19 at 20:00; Stop 06/08/19 at 20:29; Status DC Sodium Chloride 1,000 ml @ 1,000 mls/hr 1X ONCE IV Last administered on 06/08/19at 20:02; Start 06/08/19 at 20:00; Stop 06/08/19 at 20:59; Status DC Vancomycin HCl 2 gm/Sodium Chloride 500 ml @ 250 mls/hr 1X ONCE IV Last administered on 06/08/19at 20:43; Start 06/08/19 at 20:00; Stop 06/08/19 at 21:59; Status DC Ondansetron HCl (Zofran) 4 mg PRN Q8HRS PRN IV NAUSEA/VOMITING Last administered on 06/09/19at 11:15; Start 06/08/19 at 20:15; Stop 06/09/19 at 20:14; Status DC Morphine Sulfate (Morphine Sulfate) 4 mg PRN Q6HRS PRN IV PAIN Last administered on 06/09/19at 11:16; Start 06/08/19 at 20:15; Stop 06/09/19 at 20:14; Status DC Cefazolin Sodium/ Dextrose 50 ml @ 100 mls/hr Q8HRS IV Last administered on 06/10/19at 06:36; Start 06/09/19 at 06:00; Stop 06/10/19 at 12:42; Status DC Vancomycin HCl (Vanco Per Pharmacy) 1 each PRN DAILY PRN MC SEE COMMENTS Last administered on 06/10/19at 11:12; Start 06/08/19 at 20:30; Stop 06/10/19 at 12:42; Status DC Vancomycin HCl 1.5 gm/Sodium Chloride 500 ml @ 250 mls/hr Q8H IV Last administered on 06/08/19at 05:00; Start 06/08/19 at 05:00; Stop 06/08/19 at 21:21; Status DC Vancomycin HCl (Vancomycin Trough Level) 1 each 1X ONCE MC Last administered on 06/09/19at 20:30; Start 06/09/19 at 20:30; Stop 06/09/19 at 20:31; Status DC Vancomycin HCl 1.5 gm/Sodium Chloride 500 ml @ 250 mls/hr Q8H IV Last administered on 06/10/19at 04:15; Start 06/09/19 at 05:00; Stop 06/10/19 at 12:42; Status DC Lactobacillus Rhamnosus (Culturelle) 1 cap BID PO Last administered on 06/20/19at 09:01; Start 06/09/19 at 21:00 Heparin Sodium (Porcine) (Heparin Sodium) 5,000 unit Q8HRS SQ Last administered on 06/20/19at 05:47; Start 06/09/19 at 22:00 Furosemide (Lasix) 40 mg DAILY PO Last administered on 06/20/19at 09:02; Start 06/10/19 at 09:00 Potassium Chloride (Klor-Con) 10 meq DAILYWBKFT PO ; Start 06/10/19 at 08:00; Stop 06/09/19 at 16:03; Status DC Potassium Chloride (Klor-Con) 20 meq 1X ONCE PO ; Start 06/09/19 at 15:15; Stop 06/09/19 at 15:59; Status DC Perflutren Protein Type A Microsphe (Optison) 0.66 mg 1X ONCE IV ; Start 06/09/19 at 15:45; Stop 06/09/19 at 15:46; Status DC Perflutren Protein Type A Microsphe (Optison) 0.66 mg STK-MED ONCE IV ; Start 06/09/19 at 15:47; Stop 06/09/19 at 15:47; Status DC Potassium Bicarbonate (Potassium Effervescent Tablet) 20 meq 1X ONCE PO Last administered on 06/09/19at 16:17; Start 06/09/19 at 16:00; Stop 06/09/19 at 16:05; Status DC Potassium Bicarbonate (Potassium Effervescent Tablet) 10 meq DAILY ONCE PO Last administered on 06/10/19at 10:33; Start 06/10/19 at 09:00; Stop 06/10/19 at 09:01; Status DC Simethicone (Gas-X) 40 mg PRN Q4HRS PRN PO GAS / BLOATING Last administered on 06/10/19at 01:14; Start 06/09/19 at 23:45 Daptomycin 1000 mg/Sodium Chloride 50 ml @ 100 mls/hr Q24H IV Last administered on 06/12/19at 14:29; Start 06/10/19 at 13:00; Stop 06/13/19 at 10:52; Status DC Linezolid (Zyvox) 600 mg BID PO Last administered on 06/12/19at 20:56; Start 06/10/19 at 21:00; Stop 06/13/19 at 11:13; Status DC Piperacillin Sod/ Tazobactam Sod 3.375 gm/Sodium Chloride 50 ml @ 100 mls/hr Q6HRS IV Last administered on 06/18/19at 05:35; Start 06/10/19 at 13:00; Stop 06/18/19 at 10:29; Status DC Micafungin Sodium 100 mg/Dextrose 100 ml @ 100 mls/hr Q24H IV Last administered on 06/12/19at 15:25; Start 06/10/19 at 14:00; Stop 06/13/19 at 10:52; Status DC Potassium Chloride (Klor-Con) 40 meq 1X ONCE PO Last administered on 06/10/19at 18:08; Start 06/10/19 at 15:30; Stop 06/10/19 at 15:38; Status DC Potassium Chloride (Klor-Con) 20 meq DAILYWBKFT PO Last administered on 06/13/19at 10:14; Start 06/11/19 at 08:00; Stop 06/13/19 at 11:52; Status DC Hydromorphone HCl (Dilaudid) 1 mg 1X ONCE IV ; Start 06/10/19 at 19:00; Stop 06/10/19 at 19:01; Status Cancel Hydromorphone HCl (Dilaudid) 1 mg PRN Q4HRS PRN IV PAIN Last administered on 06/15/19at 18:37; Start 06/10/19 at 19:00 Oxycodone/ Acetaminophen (Percocet 5/325) 1 tab PRN Q4HRS PRN PO PAIN Last administered on 06/20/19 05:41; Start 06/12/19 at 10:30 Ondansetron HCl (Zofran) 4 mg PRN Q6HRS PRN IVP NAUSEA/VOMITING Last administered on 06/15/19 12:15; Start 06/12/19 at 10:30 Calcium Carbonate/ Glycine (Tums) 500 mg PRN AFTMEALHC PRN PO INDIGESTION; Start 06/12/19 at 10:30 Zolpidem Tartrate (Ambien) 5 mg PRN QHS PRN PO INSOMNIA, 2ND CHOICE Last administered on 06/13/19 22:20; Start 06/12/19 at 10:30 Loperamide HCl (Imodium) 2 mg PRN Q15MIN PRN PO DIARRHEA; Start 06/12/19 at 10:30 Linezolid/Dextrose 300 ml @ 300 mls/hr Q12HR IV Last administered on 06/14/19 09:37; Start 06/13/19 at 21:00; Stop 06/14/19 at 10:31; Status DC Potassium Bicarbonate (Potassium Effervescent Tablet) 20 meq BID PO Last administered on 06/20/19 09:02; Start 06/13/19 at 21:00 Guaifenesin (Robitussin Dm) 10 ml PRN Q6HRS PRN PO COUGH Last administered on 06/15/19 23:45; Start 06/13/19 at 18:00 Diphenhydramine HCl (Benadryl) 25 mg PRN QHS PRN PO INSOMNIA, 1ST CHOICE Last administered on 06/19/19 01:28; Start 06/14/19 at 14:45 Levofloxacin (Levaquin) 750 mg DAILY06 PO Last administered on 06/20/19 05:40; Start 06/16/19 at 09:00 Clonidine HCl (Catapres) 0.1 mg 1X ONCE PO Last administered on 06/18/19 08:24; Start 06/18/19 at 08:15; Stop 06/18/19 at 08:16; Status DC Amlodipine Besylate (Norvasc) 5 mg DAILY PO Last administered on 06/20/19 09:02; Start 06/18/19 at 09:00 Active Scripts Active Reported [water pill] Turmeric (Turmeric Root Extract) 538 Mg Capsule 538 Mg PO DAILY Vitals/I & O Vital Sign - Last 24 Hours 06/19/19 06/19/19 06/19/19 06/19/19 09:27 11:00 13:47 14:47 Temp 97.4 97.4 Pulse 105 91 Resp 20 B/P (MAP) 150/101 160/94 (116) Pulse Ox 94 O2 Delivery Nasal Cannula Nasal Cannula Nasal Cannula O2 Flow Rate 2.0 2.0 2.0 06/19/19 06/19/19 06/19/19 06/19/19 15:00 19:00 20:00 23:00 Temp 99.0 98.3 99.0 98.3 Pulse 105 107 97 Resp 20 20 18 B/P (MAP) 157/97 (117) 155/90 (111) 160/91 (114) Pulse Ox 92 96 94 O2 Delivery Nasal Cannula Nasal Cannula Nasal Cannula Nasal Cannula O2 Flow Rate 2.0 2.0 2.0 2.0 06/20/19 06/20/19 06/20/19 06/20/19 03:06 06:41 07:00 09:02 Temp 98.6 97.7 98.6 97.7 Pulse 95 98 98 Resp 18 20 18 B/P (MAP) 165/84 (111) 133/86 (102) 133/86 Pulse Ox 95 96 O2 Delivery Nasal Cannula Room Air Nasal Cannula O2 Flow Rate 2.0 2.0 Intake and Output 06/19/19 06/19/19 06/20/19 15:00 23:00 07:00 Intake Total 350 ml 400 ml Output Total 150 ml 450 ml 200 ml Balance -150 ml -100 ml 200 ml MARIA ELENA MATUTE MD Jun 20, 2019 09:21
--- NOTE | 2019-06-20 10:15 | NUR ---
Wound care: Patient seen per wound care follow up regarding left and right lower leg stasis ulcers. Wounds cleansed and assessed. LLE is resolved with dry, flaky skin. Recommendations to apply contact layer and foam dressing to right lower leg, then apply lotion and xeroform with kerlix to the left lower leg. Dressings applied and patient tolerated well. No other wounds noted upon complete head to toe assessment. Patient states he is using calazime to bilateral buttocks as needed for redness and irritation. Dressing change instructions left in room. Bed lowered and call light in reach. Will follow patient regarding wound care.
--- NOTE | 2019-06-20 10:31 | PDOC ---
Infectious Disease Note Subjective Subjective Fels good Dressing changed, pics reviewed with wound care team - looking better Appetite good Denies N/V/cramps/F/C ROS ROS per HPI Vital Sign Vital Signs Vital Signs Date Time Temp Pulse Resp B/P (MAP) Pulse Ox O2 Delivery O2 Flow Rate FiO2 06/20/19 09:02 98 133/86 06/20/19 07:00 97.7 18 96 Nasal Cannula 2.0 97.7 Physical Exam PHYSICAL EXAM GENERAL: Propped up in bed, alert, in NAD HEENT: Oral cavity: Pharynx pink and moist. NECK: Supple. LUNGS: Diminished aeration at the bases. Nonlabored. HEART: Distant heart sounds. ABDOMEN: Obese, soft, nontender with bowel sounds present. EXTREMITIES: Chronic venous changes in lower extremities bilaterally. Left leg bandaged. SKIN: warm to touch NEUROLOGIC: Alert and answering questions appropriately. PIV Labs Lab Laboratory Tests Test 06/20/19 04:30 White Blood Count 9.1 x10^3/uL (4.0-11.0) Red Blood Count 4.61 x10^6/uL (4.30-5.70) Hemoglobin 12.7 g/dL (13.0-17.5) Hematocrit 38.8 % (39.0-53.0) Mean Corpuscular Volume 84 fL (79-100) Mean Corpuscular Hemoglobin 28 pg (25-35) Mean Corpuscular Hemoglobin Concent 33 g/dL (31-37) Red Cell Distribution Width 14.6 % (11.5-14.5) Platelet Count 354 x10^3/uL (140-400) Neutrophils (%) (Auto) 68 % (31-73) Lymphocytes (%) (Auto) 20 % (24-48) Monocytes (%) (Auto) 9 % (0-9) Eosinophils (%) (Auto) 3 % (0-3) Basophils (%) (Auto) 0 % (0-3) Neutrophils # (Auto) 6.2 x10^3/uL (1.8-7.7) Lymphocytes # (Auto) 1.8 x10^3/uL (1.0-4.8) Monocytes # (Auto) 0.8 x10^3/uL (0.0-1.1) Eosinophils # (Auto) 0.3 x10^3/uL (0.0-0.7) Basophils # (Auto) 0.0 x10^3/uL (0.0-0.2) Sodium Level 138 mmol/L (136-145) Potassium Level 4.5 mmol/L (3.5-5.1) Chloride Level 101 mmol/L (98-107) Carbon Dioxide Level 35 mmol/L (21-32) Anion Gap 2 (6-14) Blood Urea Nitrogen 15 mg/dL (8-26) Creatinine 0.9 mg/dL (0.7-1.3) Estimated GFR (Cockcroft-Gault) 89.3 BUN/Creatinine Ratio 17 (6-20) Glucose Level 113 mg/dL (70-99) Calcium Level 9.1 mg/dL (8.5-10.1) Total Bilirubin 0.5 mg/dL (0.2-1.0) Aspartate Amino Transf (AST/SGOT) 20 U/L (15-37) Alanine Aminotransferase (ALT/SGPT) 28 U/L (16-63) Alkaline Phosphatase 55 U/L (46-116) Total Protein 8.1 g/dL (6.4-8.2) Albumin 2.2 g/dL (3.4-5.0) Albumin/Globulin Ratio 0.4 (1.0-1.7) Micro ANAEROBIC RES 1 Final No anaerobic growth in 72 hours. AEROBIC RES 1 Final Gram negative rods Providencia rettgeri AEROBIC RES 2 Final Beta hemolytic Streptococcus, group G MICS are expressed in micrograms per mL Antibiotic RSLT#1 RSLT#2 Ampicillin R =R Cefazolin R>=64 Cefepime S<=0.12 Ceftriaxone S<=0.25 Cefuroxime S<=1 Ciprofloxacin S<=0.25 Gentamicin S<=1 Imipenem S =1 Levofloxacin S<=0.12 Meropenem S<=0.25 Piperacillin/Tazobactam S<=4 Tetracycline R>=16 Tobramycin S<=1 Objective Assessment Severe cellulitis with large bullae left lower extremitiy - Group G strep and Providencia - improving Fever - resolved Leukocytosis Yeast in groin - improved Transaminits Super morbid obesity Exposure Influenza Chronic heart failure Loose stools Plan Plan of Care Levaquin times 10 days, thru 06/25 Probiotics Local wound care Anticipating discharge soon D/w wound care team Attending Co-Sign Attending Co-Sign The patient was seen and interviewed as well as examined at the bedside. The chart was reviewed. The case was discussed. Agree with the plan of care. LAURI BELL APRN Jun 20, 2019 10:31 CASSIDY POPE MD Jun 20, 2019 10:52
[2019-06-20 11:00] VITALS: BP 146/94
[2019-06-20] MEDS ORDERED: LEVO750T31 PO (11:20)
[2019-06-20] MEDS ORDERED: AMLO5TAB10 PO (11:20)
--- NOTE | 2019-06-20 11:20 | SNU/HH DC ---
DISCHARGE ORDERS DISCHARGE INFORMATION: FINAL DIAGNOSIS Problems Medical Problems: (1) Left leg cellulitis Status: Acute CONDITION ON DISCHARGE: Stable CODE STATUS: Code Status: Full [facility]: SNF STAY <30 DAYS: No HOSPICE: HOSPICE: No HOSPICE EVAL & TREAT: No LTAC: ADMIT TO LTAC: No POST DISCHARGE ORDERS: ACTIVITY ORDERS: Activity as tolerated DIET AFTER DISCHARGE: ADA CHECKS AFTER DISCHARGE: CHECKS AFTER DISCHARGE: Check blood press - daily TREATMENT/EQUIPMENT ORDERS: ADAPTIVE EQUIPMENT NEEDED: Front wheeled walker Physical Therapy For: Evalulation/Treatment Occupational Therapy For: Evaluation/Treatment Speech Language Pathology For: Evaluation/Treatment DISCHARGE MEDICATIONS: Home Meds Reported Medications [water pill] No Conflict Check 06/09/19 Turmeric Root Extract (Turmeric) 538 Mg Capsule, 538 MG PO DAILY for supplelment, CAP 06/09/19 MARIA ELENA MATUTE MD Jun 20, 2019 11:20
--- NOTE | 2019-06-20 11:24 | RAD ---
PORTABLE CHEST 1V 06/20/2019 8:45 PM INDICATION: Hypoxia COMPARISON: 06/12/2019 TECHNIQUE: Portable frontal view of the chest is provided. FINDINGS: The cardiomediastinal silhouette is similar in appearance. Mild pulmonary vascular congestion, marginally improved since the prior examination. There are no significant pleural effusions. No pneumothorax. IMPRESSION: Interval improvement of now mild pulmonary vascular congestion. Electronically signed by: Margarita Young MD (06/20/2019 11:21 AM) [id number]
--- NOTE | 2019-06-20 12:37 | SNU/HH DC ---
DISCHARGE ORDERS DISCHARGE INFORMATION: DISCHARGE DATE: Jun 20, 2019 FINAL DIAGNOSIS Problems Medical Problems: (1) Left leg cellulitis Status: Acute CONDITION ON DISCHARGE: Stable CODE STATUS: Code Status: Full MCFP: SNF STAY <30 DAYS: No HOSPICE: HOSPICE: No HOSPICE EVAL & TREAT: No LTAC: ADMIT TO LTAC: No POST DISCHARGE ORDERS: ACTIVITY ORDERS: Activity as tolerated DIET AFTER DISCHARGE: ADA CHECKS AFTER DISCHARGE: CHECKS AFTER DISCHARGE: Check blood press - daily TREATMENT/EQUIPMENT ORDERS: ADAPTIVE EQUIPMENT NEEDED: Front wheeled walker Physical Therapy For: Evalulation/Treatment Occupational Therapy For: Evaluation/Treatment Speech Language Pathology For: Evaluation/Treatment DISCHARGE MEDICATIONS: Home Meds Reported Medications [water pill] No Conflict Check 06/09/19 Turmeric Root Extract (Turmeric) 538 Mg Capsule, 538 MG PO DAILY for supplelment, CAP 06/09/19 MARIA ELENA MATUTE MD Jun 20, 2019 12:37
--- NOTE | 2019-06-20 12:39 | SNU/HH DC ---
DISCHARGE ORDERS DISCHARGE INFORMATION: DISCHARGE DATE: Jun 20, 2019 FINAL DIAGNOSIS Problems Medical Problems: (1) Left leg cellulitis Status: Acute CONDITION ON DISCHARGE: Stable CODE STATUS: Code Status: Full NURSING HOME: SNF STAY <30 DAYS: No HOSPICE: HOSPICE: No HOSPICE EVAL & TREAT: No LTAC: ADMIT TO LTAC: No POST DISCHARGE ORDERS: ACTIVITY ORDERS: Activity as tolerated DIET AFTER DISCHARGE: ADA CHECKS AFTER DISCHARGE: CHECKS AFTER DISCHARGE: Check blood press - daily TREATMENT/EQUIPMENT ORDERS: ADAPTIVE EQUIPMENT NEEDED: Front wheeled walker Physical Therapy For: Evalulation/Treatment Occupational Therapy For: Evaluation/Treatment Speech Language Pathology For: Evaluation/Treatment DISCHARGE MEDICATIONS: Home Meds Active Scripts Amlodipine Besylate (AMLODIPINE BESYLATE) 5 Mg Tablet, 5 MG PO DAILY for BLOOD PRESSURE for 30 Days, #30 TAB Prov:MARIA ELENA MATUTE MD 06/20/19 Levofloxacin (LEVAQUIN) 750 Mg Tablet, 750 MG PO DAILY06 for INFECTION for 7 Da ys, #7 TAB Prov:MARIA ELENA MATTUE MD 06/20/19 Levofloxacin (LEVAQUIN) 500 Mg Tablet, 1 TAB PO DAILY for infection for 10 Days, #10 TAB 0 Refills Prov:MARIA ELENA MATUTE MD 06/15/19 Lactobacillus Rhamnosus Gg (CULTURELLE) 1 Each Cap.sprink, 1 CAP PO BID for supplement for 30 Days, #60 CAP Prov:MRAIA ELENA MATUTE MD 06/15/19 Simethicone (SIMETHICONE) 80 Mg Tab.chew, 40 MG PO PRN Q4HRS PRN for GAS / BLOATING for 10 Days, #30 TAB.CHEW Prov:MARIA ELENA MATUTE MD 06/15/19 Furosemide (FUROSEMIDE) 40 Mg Tablet, 40 MG PO DAILY for edema for 30 Days, #30 TAB Prov:MARIA ELENA MATUTE MD 06/15/19 Potassium Bicarbonate/Cit Ac (EFFER-K 20 MEQ TABLET EFF) 20 Meq Tablet.eff, 20 MEQ PO BID for supplement for 10 Days, #20 TAB Prov:MARIA ELENA MATUTE MD 06/15/19 Discontinued Reported Medications [water pill] No Conflict Check 06/09/19 Turmeric Root Extract (Turmeric) 538 Mg Capsule, 538 MG PO DAILY for supplelment, CAP 06/09/19 MARIA ELENA MATUTE MD Jun 20, 2019 12:39
--- NOTE | 2019-06-20 13:49 | PDOC3 ---
Discharge Summary Date of Admission: Jun 08, 2019 Date of Discharge: Jun 20, 2019 Follow-Up: 1-2 days Admitting Diagnosis comment: discharge dx Severe cellulitis with large bullae left lower extremitiy Fever resolved Leukocytosis 15 Yeast in groin Transaminits Super morbid obesity BMI 84 - Weight loss pgm /bariatric group appt jun 2019 Exposure Influenza Chronic heart failure Loose stools JASON, undiagnosed hypoxia at rest 86% , desat study abn, needs rehab bed [facility] WILL ACCEPT IF INSURANCE APPROVES Levaquin times 10 days (started 06/16) 06/20 D/C PLANNING 33 MIN History of Present Illness History of Present Illness Still on IV abx per ID Cx cooking Also requested IV instead of PO zyvox from ID PLAN: lasix PO WIll dc on PO abx once shifted by ID - once cx final out needs rehab insurance approval NEeds to lose weight - has appt Jun bariatric team HOme per PTeval NEeds polysomnogram as OP HOme O2 rx on chart Continue Zosyn , can be changed to po levaquin for d/c 10 days ok with id 33 MIN PT EXAM, CHART REVIEW D/C PLANNING , > 50% OF TIME SPENT WITH EXAM, CHART REVIEW, PT CARE COORDINATION Vitals Vitals Vital Signs Date Time Temp Pulse Resp B/P (MAP) Pulse Ox O2 Delivery O2 Flow Rate FiO2 06/20/19 09:02 98 133/86 06/20/19 07:00 97.7 18 96 Nasal Cannula 2.0 97.7 Physical Exam Physical Exam GENERAL: Propped up in bed, alert, eating and watching TV HEENT: Oral cavity: Pharynx pink and moist. NECK: Supple. LUNGS: Diminished aeration at the bases. Nonlabored. HEART: Distant heart sounds. ABDOMEN: Obese, soft, nontender with bowel sounds present. EXTREMITIES: Chronic venous changes in lower extremities bilaterally. Left leg iss less red and the swelling is going down, + wrinkles. blisters dried up, no drainage SKIN: warm to touch NEUROLOGIC: Alert and answering questions appropriately. PIV General: Alert, Oriented X3, Cooperative, No acute distress Heart: Regular rate, Other (distant heart sounds) Lungs: Clear Abdomen: Normal bowel sounds, Soft, No tenderness Extremities: No clubbing, No cyanosis, Other (chronic lymphedema with LLE cellulitis) Skin: Other (LE venous dermatitis; blisters to left calf dark erythema from below knee to ankle with pitting edema) Labs FINAL DIAGNOSIS Problems Medical Problems: (1) Left leg cellulitis Status: Acute Brief Hospital Course Mr. Desai is a 49 old [sex] who presented with [ SEVERE CELLULITIS, HYPOXIA] CONDITION AT DISCHARGE: Improved Discharge Medications Current Medications Ibuprofen (Motrin) 800 mg 1X ONCE PO Last administered on 06/08/19at 19:56; Start 06/08/19 at 20:00; Stop 06/08/19 at 20:01; Status DC Acetaminophen (Tylenol) 1,000 mg 1X ONCE PO Last administered on 06/08/19at 19:56; Start 06/08/19 at 20:00; Stop 06/08/19 at 20:01; Status DC Vancomycin HCl 250 ml @ 250 mls/hr 1X ONCE IV ; Start 06/08/19 at 18:45; Stop 06/08/19 at 19:44; Status UNV Cefazolin Sodium/ Dextrose 50 ml @ 100 mls/hr 1X ONCE IV Last administered on 06/08/19at 20:02; Start 06/08/19 at 20:00; Stop 06/08/19 at 20:29; Status DC Sodium Chloride 1,000 ml @ 1,000 mls/hr 1X ONCE IV Last administered on 06/08/19at 20:02; Start 06/08/19 at 20:00; Stop 06/08/19 at 20:59; Status DC Vancomycin HCl 2 gm/Sodium Chloride 500 ml @ 250 mls/hr 1X ONCE IV Last administered on 06/08/19at 20:43; Start 06/08/19 at 20:00; Stop 06/08/19 at 21:59; Status DC Ondansetron HCl (Zofran) 4 mg PRN Q8HRS PRN IV NAUSEA/VOMITING Last administered on 06/09/19at 11:15; Start 06/08/19 at 20:15; Stop 06/09/19 at 20:14; Status DC Morphine Sulfate (Morphine Sulfate) 4 mg PRN Q6HRS PRN IV PAIN Last administered on 06/09/19at 11:16; Start 06/08/19 at 20:15; Stop 06/09/19 at 20:14; Status DC Cefazolin Sodium/ Dextrose 50 ml @ 100 mls/hr Q8HRS IV Last administered on 06/10/19at 06:36; Start 06/09/19 at 06:00; Stop 06/10/19 at 12:42; Status DC Vancomycin HCl (Vanco Per Pharmacy) 1 each PRN DAILY PRN MC SEE COMMENTS Last administered on 06/10/19at 11:12; Start 06/08/19 at 20:30; Stop 06/10/19 at 12:42; Status DC Vancomycin HCl 1.5 gm/Sodium Chloride 500 ml @ 250 mls/hr Q8H IV Last adminis tered on 06/08/19at 05:00; Start 06/08/19 at 05:00; Stop 06/08/19 at 21:21; Status DC Vancomycin HCl (Vancomycin Trough Level) 1 each 1X ONCE MC Last administered on 06/09/19at 20:30; Start 06/09/19 at 20:30; Stop 06/09/19 at 20:31; Status DC Vancomycin HCl 1.5 gm/Sodium Chloride 500 ml @ 250 mls/hr Q8H IV Last administered on 06/10/19at 04:15; Start 06/09/19 at 05:00; Stop 06/10/19 at 12:42; Status DC Lactobacillus Rhamnosus (Culturelle) 1 cap BID PO Last administered on 06/20/19at 09:01; Start 06/09/19 at 21:00 Heparin Sodium (Porcine) (Heparin Sodium) 5,000 unit Q8HRS SQ Last administered on 06/20/19at 05:47; Start 06/09/19 at 22:00 Furosemide (Lasix) 40 mg DAILY PO Last administered on 06/20/19at 09:02; Start 06/10/19 at 09:00 Potassium Chloride (Klor-Con) 10 meq DAILYWBKFT PO ; Start 06/10/19 at 08:00; Stop 06/09/19 at 16:03; Status DC Potassium Chloride (Klor-Con) 20 meq 1X ONCE PO ; Start 06/09/19 at 15:15; Stop 06/09/19 at 15:59; Status DC Perflutren Protein Type A Microsphe (Optison) 0.66 mg 1X ONCE IV ; Start 06/09/19 at 15:45; Stop 06/09/19 at 15:46; Status DC Perflutren Protein Type A Microsphe (Optison) 0.66 mg STK-MED ONCE IV ; Start 06/09/19 at 15:47; Stop 06/09/19 at 15:47; Status DC Potassium Bicarbonate (Potassium Effervescent Tablet) 20 meq 1X ONCE PO Last administered on 06/09/19at 16:17; Start 06/09/19 at 16:00; Stop 06/09/19 at 16:05; Status DC Potassium Bicarbonate (Potassium Effervescent Tablet) 10 meq DAILY ONCE PO Last administered on 06/10/19at 10:33; Start 06/10/19 at 09:00; Stop 06/10/19 at 09:01; Status DC Simethicone (Gas-X) 40 mg PRN Q4HRS PRN PO GAS / BLOATING Last administered on 06/10/19at 01:14; Start 06/09/19 at 23:45 Daptomycin 1000 mg/Sodium Chloride 50 ml @ 100 mls/hr Q24H IV Last administered on 06/12/19at 14:29; Start 06/10/19 at 13:00; Stop 06/13/19 at 10:52; Status DC Linezolid (Zyvox) 600 mg BID PO Last administered on 06/12/19at 20:56; Start 06/10/19 at 21:00; Stop 06/13/19 at 11:13; Status DC Piperacillin Sod/ Tazobactam Sod 3.375 gm/Sodium Chloride 50 ml @ 100 mls/hr Q6HRS IV Last administered on 06/18/19at 05:35; Start 06/10/19 at 13:00; Stop 06/18/19 at 10:29; Status DC Micafungin Sodium 100 mg/Dextrose 100 ml @ 100 mls/hr Q24H IV Last administered on 06/12/19at 15:25; Start 06/10/19 at 14:00; Stop 06/13/19 at 10:52; Status DC Potassium Chloride (Klor-Con) 40 meq 1X ONCE PO Last administered on 06/10/19at 18:08; Start 06/10/19 at 15:30; Stop 06/10/19 at 15:38; Status DC Potassium Chloride (Klor-Con) 20 meq DAILYWBKFT PO Last administered on 06/13/19at 10:14; Start 06/11/19 at 08:00; Stop 06/13/19 at 11:52; Status DC Hydromorphone HCl (Dilaudid) 1 mg 1X ONCE IV ; Start 06/10/19 at 19:00; Stop 06/10/19 at 19:01; Status Cancel Hydromorphone HCl (Dilaudid) 1 mg PRN Q4HRS PRN IV PAIN Last administered on 06/15/19 18:37; Start 06/10/19 at 19:00 Oxycodone/ Acetaminophen (Percocet 5/325) 1 tab PRN Q4HRS PRN PO PAIN Last administered on 06/20/19 05:41; Start 06/12/19 at 10:30 Ondansetron HCl (Zofran) 4 mg PRN Q6HRS PRN IVP NAUSEA/VOMITING Last administered on 06/15/19 12:15; Start 06/12/19 at 10:30 Calcium Carbonate/ Glycine (Tums) 500 mg PRN AFTMEALHC PRN PO INDIGESTION; Start 06/12/19 at 10:30 Zolpidem Tartrate (Ambien) 5 mg PRN QHS PRN PO INSOMNIA, 2ND CHOICE Last administered on 06/13/19 22:20; Start 06/12/19 at 10:30 Loperamide HCl (Imodium) 2 mg PRN Q15MIN PRN PO DIARRHEA; Start 06/12/19 at 10:30 Linezolid/Dextrose 300 ml @ 300 mls/hr Q12HR IV Last administered on 06/14/19at 09:37; Start 06/13/19 at 21:00; Stop 06/14/19 at 10:31; Status DC Potassium Bicarbonate (Potassium Effervescent Tablet) 20 meq BID PO Last administered on 06/20/19 09:02; Start 06/13/19 at 21:00 Guaifenesin (Robitussin Dm) 10 ml PRN Q6HRS PRN PO COUGH Last administered on 06/15/19 23:45; Start 06/13/19 at 18:00 Diphenhydramine HCl (Benadryl) 25 mg PRN QHS PRN PO INSOMNIA, 1ST CHOICE Last administered on 06/19/19 01:28; Start 06/14/19 at 14:45 Levofloxacin (Levaquin) 750 mg DAILY06 PO Last administered on 06/20/19at 05:40; Start 06/16/19 at 09:00; Stop 06/25/19 at 23:00 Clonidine HCl (Catapres) 0.1 mg 1X ONCE PO Last administered on 06/18/19at 08:24; Start 06/18/19 at 08:15; Stop 06/18/19 at 08:16; Status DC Amlodipine Besylate (Norvasc) 5 mg DAILY PO Last administered on 06/20/19at 09:02; Start 06/18/19 at 09:00 Active Scripts Active Amlodipine Besylate 5 Mg Tablet 5 Mg PO DAILY 30 Days Levaquin (Levofloxacin) 750 Mg Tablet 750 Mg PO DAILY06 7 Days Levaquin (Levofloxacin) 500 Mg Tablet 1 Tab PO DAILY 10 Days Culturelle (Lactobacillus Rhamnosus Gg) 1 Each Cap.sprink 1 Cap PO BID 30 Days Simethicone 80 Mg Tab.chew 40 Mg PO PRN Q4HRS PRN 10 Days Furosemide 40 Mg Tablet 40 Mg PO DAILY 30 Days Effer-K 20 Meq Tablet Eff (Potassium Bicarbonate/Cit Ac) 20 Meq Tablet.eff 20 Meq PO BID 10 Days Vital Signs Vital Signs Date Time Temp Pulse Resp B/P (MAP) Pulse Ox O2 Delivery O2 Flow Rate FiO2 06/20/19 11:00 97.8 100 20 146/94 (111) 95 Nasal Cannula 2.0 97.8 Labs Laboratory Tests Test 06/20/19 04:30 White Blood Count 9.1 x10^3/uL (4.0-11.0) Red Blood Count 4.61 x10^6/uL (4.30-5.70) Hemoglobin 12.7 g/dL (13.0-17.5) Hematocrit 38.8 % (39.0-53.0) Mean Corpuscular Volume 84 fL (79-100) Mean Corpuscular Hemoglobin 28 pg (25-35) Mean Corpuscular Hemoglobin Concent 33 g/dL (31-37) Red Cell Distribution Width 14.6 % (11.5-14.5) Platelet Count 354 x10^3/uL (140-400) Neutrophils (%) (Auto) 68 % (31-73) Lymphocytes (%) (Auto) 20 % (24-48) Monocytes (%) (Auto) 9 % (0-9) Eosinophils (%) (Auto) 3 % (0-3) Basophils (%) (Auto) 0 % (0-3) Neutrophils # (Auto) 6.2 x10^3/uL (1.8-7.7) Lymphocytes # (Auto) 1.8 x10^3/uL (1.0-4.8) Monocytes # (Auto) 0.8 x10^3/uL (0.0-1.1) Eosinophils # (Auto) 0.3 x10^3/uL (0.0-0.7) Basophils # (Auto) 0.0 x10^3/uL (0.0-0.2) Sodium Level 138 mmol/L (136-145) Potassium Level 4.5 mmol/L (3.5-5.1) Chloride Level 101 mmol/L (98-107) Carbon Dioxide Level 35 mmol/L (21-32) Anion Gap 2 (6-14) Blood Urea Nitrogen 15 mg/dL (8-26) Creatinine 0.9 mg/dL (0.7-1.3) Estimated GFR (Cockcroft-Gault) 89.3 BUN/Creatinine Ratio 17 (6-20) Glucose Level 113 mg/dL (70-99) Calcium Level 9.1 mg/dL (8.5-10.1) Total Bilirubin 0.5 mg/dL (0.2-1.0) Aspartate Amino Transf (AST/SGOT) 20 U/L (15-37) Alanine Aminotransferase (ALT/SGPT) 28 U/L (16-63) Alkaline Phosphatase 55 U/L (46-116) Total Protein 8.1 g/dL (6.4-8.2) Albumin 2.2 g/dL (3.4-5.0) Albumin/Globulin Ratio 0.4 (1.0-1.7) Laboratory Tests Test 06/20/19 04:30 White Blood Count 9.1 x10^3/uL (4.0-11.0) Red Blood Count 4.61 x10^6/uL (4.30-5.70) Hemoglobin 12.7 g/dL (13.0-17.5) Hematocrit 38.8 % (39.0-53.0) Mean Corpuscular Volume 84 fL (79-100) Mean Corpuscular Hemoglobin 28 pg (25-35) Mean Corpuscular Hemoglobin Concent 33 g/dL (31-37) Red Cell Distribution Width 14.6 % (11.5-14.5) Platelet Count 354 x10^3/uL (140-400) Neutrophils (%) (Auto) 68 % (31-73) Lymphocytes (%) (Auto) 20 % (24-48) Monocytes (%) (Auto) 9 % (0-9) Eosinophils (%) (Auto) 3 % (0-3) Basophils (%) (Auto) 0 % (0-3) Neutrophils # (Auto) 6.2 x10^3/uL (1.8-7.7) Lymphocytes # (Auto) 1.8 x10^3/uL (1.0-4.8) Monocytes # (Auto) 0.8 x10^3/uL (0.0-1.1) Eosinophils # (Auto) 0.3 x10^3/uL (0.0-0.7) Basophils # (Auto) 0.0 x10^3/uL (0.0-0.2) Sodium Level 138 mmol/L (136-145) Potassium Level 4.5 mmol/L (3.5-5.1) Chloride Level 101 mmol/L (98-107) Carbon Dioxide Level 35 mmol/L (21-32) Anion Gap 2 (6-14) Blood Urea Nitrogen 15 mg/dL (8-26) Creatinine 0.9 mg/dL (0.7-1.3) Estimated GFR (Cockcroft-Gault) 89.3 BUN/Creatinine Ratio 17 (6-20) Glucose Level 113 mg/dL (70-99) Calcium Level 9.1 mg/dL (8.5-10.1) Total Bilirubin 0.5 mg/dL (0.2-1.0) Aspartate Amino Transf (AST/SGOT) 20 U/L (15-37) Alanine Aminotransferase (ALT/SGPT) 28 U/L (16-63) Alkaline Phosphatase 55 U/L (46-116) Total Protein 8.1 g/dL (6.4-8.2) Albumin 2.2 g/dL (3.4-5.0) Albumin/Globulin Ratio 0.4 (1.0-1.7) Allergies Allergies Coded Allergies Type Severity Reaction Last Updated Verified No Known Drug Allergies 06/08/19 No Disposition/Orders: Other (D/C TO [facility]) MARIA ELENA MATUTE MD Jun 20, 2019 13:49
[2019-06-20 15:00] VITALS: BP 157/83
--- NOTE | 2019-06-20 18:17 | NUR ---
Discharge Note: VADIM BURGOS [address] [place] [address] Discharge instructions and discharge home medications reviewed with Patient and a copy given. All questions have been answered and understanding verbalized. Discontinued lines and drains: peripheral line. Patient discharged to Rehab Facility with Ambulance Personnel via Stretcher
--- NOTE | 2019-06-20 18:26 | NUR ---
Refused DC pictures
== END 2019-06-20 18:21 | DRG 871 ==
LOC: ER 18:27 → 5 SOUTH 19:50
PROVIDERS: ADMIT Internal Medicine; ATTEND Internal Medicine
DX: A41.9 Sepsis, unspecified organism (principal); E43 Unspecified severe protein-calorie malnutrition; L03.116 Cellulitis of left lower limb; I50.32 Chronic diastolic (congestive) heart failure; Z68.45 Body mass index [BMI] 70 or greater, adult; L03.115 Cellulitis of right lower limb; B37.2 Candidiasis of skin and nail; E66.01 Morbid (severe) obesity due to excess calories; E78.5 Hyperlipidemia, unspecified; E87.6 Hypokalemia; G47.33 Obstructive sleep apnea (adult) (pediatric); M19.90 Unspecified osteoarthritis, unspecified site; J11.1 Influenza due to unidentified influenza virus with other respiratory manifestations; L30.9 Dermatitis, unspecified; R09.02 Hypoxemia; Z82.49 Family history of ischemic heart disease and other diseases of the circulatory system
CPT/HCPCS: 96365; 96366; 96367; 99285; C8929; 36415; 36600; 71045; 80048; 80053; 80061; 80202; 81001; 82550; 82805; 82962; 83036; 83605; 83735; 83880; 84443; 85007; 85025; 85610; 85651; 85730; 87040; 87071; 87075; 87186; 87804; 93005; 93971; 94618; 94799; J0696; J0878; J1170; J1644; J2020; J2248; J2270; J2405; J2543; J3370; J7030; J7040; Q0163; 97110; 97116; 97530; 97535; G0378